=== PATIENT | male | born 1975 | race Caucasian/White ===

== ENCOUNTER 2024-05-26 02:36 | Inpatient (IN) | payer MEDICARE, OTHER ==
--- NOTE | 2024-05-26 02:40 | ED ---
General Adult HPI <Chanel Toro - Last Filed: 05/26/24 03:47> <Aissatou Hammer - Last Filed: 05/26/24 06:21> - General Stated complaint: Mental Health Time Seen by Provider: 05/26/24 02:40 - History of Present Illness Initial comments: Is a 48-year-old male with a history of alcohol abuse and alcoholic liver disease who presents to the emergency department today via ambulance for psychiatric evaluation and for treatment of self-inflicted laceration to the left forearm. Patient has multiple superficial lacerations to the left forearm made with a razor knife. Patient states that he did not have any alcohol tonight because he was feeling like ending his life he made multiple lacerations but was not successful and subsequently decided come to the hospital. Patient states he has known alcoholic liver disease he is currently not undergoing any treatment for this. (Aissatou Hammer) Review of Systems ROS Other: All systems not noted in ROS Statement are negative. <Chanel Toro - Last Filed: 05/26/24 03:47> ROS Other: All systems not noted in ROS Statement are negative. <Aissatou Hammer - Last Filed: 05/26/24 06:21> ROS Statement: Those systems with pertinent positive or pertinent negative responses have been documented in the HPI. General Exam <Aissatou Hammer - Last Filed: 05/26/24 06:21> - General Exam Comments Initial Comments: Physical Exam GENERAL: Obese, chronically ill appearing HENT: Normocephalic, Atraumatic. EYES: Scleral icterus equal round reactive to light, extraocular movements intact PULMONARY: Unlabored respirations. CARDIOVASCULAR: Tachycardic, regular warm and well perfused extremities ABDOMEN: Soft, distended palpable fluid wave SKIN: Jaundice 4 linear lacerations to the palmar surface of the left forearm, visible subcutaneous fat and underlying musculature but no obvious injuries to underlying vessels : Deferred NEUROLOGIC: Alert and oriented Normal speech MUSCULOSKELETAL: Moving all extremities PSYCHIATRIC: No SI/HI (Aissatou Hammer) Course Vital Signs 05/26/24 02:48 Temperature 97.8 F Pulse Rate 132 H Respiratory 20 Rate Blood Pressure 138/92 O2 Sat by Pulse 99 Oximetry Procedures - Laceration Laceration #1 Consent Obtained: verbal consent Indication: laceration Site: upper extremity Size (cm): 2 Description: linear Depth: simple, single layer Anesthetic Used: lidocaine 1%, without epi Anesthesia Technique: local infiltration Amount (mls): 1 Pre-repair: wound explored, irrigated extensively, deep structures intact Type of Sutures: nylon Size of Sutures: 4-0 Number of Sutures: 3 Technique: simple, interrupted Patient Tolerated Procedure: well Laceration #2 Consent Obtained: verbal consent Indication: laceration Site: upper extremity Size (cm): 3 Description: linear Depth: simple, single layer Anesthetic Used: lidocaine 1%, without epi Anesthesia Technique: local infiltration Amount (mls): 2 Pre-repair: wound explored, irrigated extensively, deep structures intact Type of Sutures: nylon Size of Sutures: 4-0 Number of Sutures: 3 Technique: simple, interrupted Patient Tolerated Procedure: well Laceration #3 Consent Obtained: verbal consent Indication: laceration Site: upper extremity Size (cm): 3 Description: linear Depth: simple, single layer Anesthetic Used: lidocaine 1%, without epi Anesthesia Technique: local infiltration Amount (mls): 3 Pre-repair: wound explored, irrigated extensively, deep structures intact Type of Sutures: nylon, vicryl Size of Sutures: 4-0 Number of Sutures: 3 Technique: simple, interrupted Patient Tolerated Procedure: well Laceration #4 Consent Obtained: verbal consent Indication: laceration Site: upper extremity Size (cm): 5 Description: linear Depth: simple, single layer Anesthetic Used: lidocaine 1%, without epi Anesthesia Technique: local infiltration Amount (mls): 2 Pre-repair: wound explored, irrigated extensively, deep structures intact Type of Sutures: nylon Size of Sutures: 4-0 Number of Sutures: 7 Technique: simple, interrupted Patient Tolerated Procedure: well <Chanel Toro - Last Filed: 05/26/24 03:47> Medical Decision Making - Lab Data Result diagrams: 05/26/24 04:07 05/26/24 04:07 <Aissatou Hammer - Last Filed: 05/26/24 06:21> - Medical Decision Making Was pt. sent in by a medical professional or institution (, PA, MEMBERSHIP MANAGER, urgent care, hospital, or [facility]...) When possible be specific @ -No Did you speak to anyone other than the patient for history (EMS, parent, family, police, friend...)? What history was obtained from this source @ -EMS Did you review nursing and triage notes (agree or disagree)? Why? @ -I reviewed and agree with nursing and triage notes Were old charts reviewed (outside hosp., previous admission, EMS record, old EKG, old radiological studies, urgent care reports/EKG's, [facility] records)? Report findings @ -No old charts available Differential Diagnosis (chest pain, altered mental status, abdominal pain women, abdominal pain men, vaginal bleeding, weakness, fever, dyspnea, syncope, heada aram, dizziness, GI bleed, back pain, seizure, CVA, palpatations, mental health)? @ -Differential Mental Health Depression, anxiety, bipolar, psychosis, schizophrenia, borderline personality, situational depression, adjustment disorder, behavioral disorder, brain tumor, malingering, substance abuse, encephalopathy, medication reaction, dementia, hypothyroidism, degenerative neurologic disorder, lupus.... This is not meant to be all-inclusive list EKG interpreted by me (3pts min.). @ -As above X-rays interpreted by me (1pt min.). @ -None done CT interpreted by me (1pt min.). @ -No free air or signs of obstruction U/S interpreted by me (1pt. min.). @ -None done What testing was considered but not performed or refused? (CT, X-rays, U/S, labs)? Why? @ -None What meds were considered but not given or refused? Why? @ -None Did you discuss the management of the patient with other professionals (professionals i.e. , PA, MEMBERSHIP MANAGER, lab, RT, psych nurse, social work supervisor, health technician, teacher, tourist information officer, case finisher)? Give summary @ -with admitting physician Was smoking cessation discussed for >3mins.? @ -No Was critical care preformed (if so, how long)? @ -No Were there social determinants of health that impacted care today? How? (Homelessness, low income, unemployed, alcoholism, drug addiction, transportation, low edu. Level, literacy, decrease access to med. care, fci, rehab)? @ -Homelessness, unemployed, alcoholism Was there de-escalation of care discussed even if they declined (Discuss DNR or withdrawal of care, Hospice)? DNR status @ -No What co-morbidities impacted this encounter? (DM, HTN, Smoking, COPD, CAD, Cancer, CVA, ARF, Chemo, Hep., AIDS, mental health diagnosis, sleep apnea, morbid obesity)? @ -Mental health diagnosis Was patient admitted / discharged? Hospital course, mention meds given and route, prescriptions, significant lab abnormalities, going to OR and other pertinent info. @ -Admit Patient was seen and evaluated upon arrival to the emergency department. Patient is obese jaundice admits to history of alcoholic liver disease. States that tonight he was visiting his mom became depressed and stated that he just wanted to end his life made multiple superficial lacerations to his left forearm. These were cleansed and repaired. Labs were obtained labs had multiple abnormalities including hyperbilirubinemia, transaminitis, hypokalemia MELD score is 3 The abdomen was obtained and there is no signs of pancreatic mass or obstructive jaundice. There is no biliary ductal dilatation. Diffuse fatty infiltration of the liver was noted. There is no ascites. Care was discussed with sound physician Dr. Tracey who accepts the patient for al cohol withdrawal, hypokalemia need for psychiatric evaluation once medically cleared. Undiagnosed new problem with uncertain prognosis? @ -No Drug Therapy requiring intensive monitoring for toxicity (Heparin, Nitro, Insulin, Cardizem)? @ -No Were any procedures done? @ -Laceration repair Diagnosis/symptom? @ -Alcoholic liver disease, hyperbilirubinemia, transaminitis, macrocytic anemia, suicide attempt, alcohol withdrawal Acute, or Chronic, or Acute on Chronic? @ -Default Uncomplicated (without systemic symptoms) or Complicated (systemic symptoms)? @ -Default Side effects of treatment? @ -No Exacerbation, Progression, or Severe Exacerbation? @ -No Poses a threat to life or bodily function? How? (Chest pain, [place], [place], pneumonia, PE, COPD, DKA, ARF, appy, cholecystitis, CVA, Diverticulitis, Homicidal, Suicidal, threat to staff... and all critical care pts) @ -Yes (Aissatou Hammer) - Lab Data Lab Results 05/26/24 05/26/24 05/26/24 Range/Units 04:07 04:07 04:07 WBC 10.2 (3.8-10.6) k/uL RBC 2.92 L (4.30-5.90) m/uL Hgb 11.3 L (13.0-17.5) gm/dL Hct 33.6 L (39.0-53.0) % MCV 114.9 H (80.0-100.0) fL MCH 38.6 H (25.0-35.0) pg MCHC 33.6 (31.0-37.0) g/dL RDW 16.2 H (11.5-15.5) % Plt Count 203 (150-450) k/uL MPV 9.4 Neutrophils % 76 % Lymphocytes % 19 % Monocytes % 3 % Eosinophils % 1 % Basophils % 1 % Neutrophils # 7.8 H (1.3-7.7) k/uL Lymphocytes # 1.9 (1.0-4.8) k/uL Monocytes # 0.3 (0-1.0) k/uL Eosinophils # 0.1 (0-0.7) k/uL Basophils # 0.1 (0-0.2) k/uL Manual Slide Review Performed Polychromasia Present Poikilocytosis (manual Present Anisocytosis Slight Macrocytosis Marked A Target Cells Present Stomatocytes Present PT 13.3 H (10.0-12.5) sec INR 1.3 H (<1.2) APTT 26.0 (22.0-30.0) sec Sodium 134 L (137-145) mmol/L Potassium 2.6 L* (3.5-5.1) mmol/L Chloride 92 L (98-107) mmol/L Carbon Dioxide 30 (22-30) mmol/L Anion Gap 12 mmol/L BUN 9 (9-20) mg/dL Creatinine 0.68 (0.66-1.25) mg/dL Est GFR (CKD-EPI)AfAm >90 (>60 ml/min/1.73 sqM) Est GFR (CKD-EPI)NonAf >90 (>60 ml/min/1.73 sqM) Glucose 215 H (74-99) mg/dL Calcium 7.9 L (8.4-10.2) mg/dL Total Bilirubin 11.2 H (0.2-1.3) mg/dL AST 248 H (17-59) U/L ALT 79 H (4-49) U/L Alkaline Phosphatase 238 H (38-126) U/L Total Protein 6.6 (6.3-8.2) g/dL Albumin 3.7 (3.5-5.0) g/dL Salicylates <1.0 mg/dL Acetaminophen <10.0 ug/mL Serum Alcohol <10 mg/dL Disposition <Chanel Toro - Last Filed: 05/26/24 03:47> Is patient prescribed a controlled substance at d/c from ED?: No <Aissatou Hammer - Last Filed: 05/26/24 06:21> Clinical Impression: Suicidal ideation, Attempted suicide, Alcoholic liver disease, Transaminitis, Hyperbilirubinemia, Hypokalemia, Alcohol withdrawal Disposition: ADMITTED IP TO THIS HOSP Condition: Serious Referrals: Darell Stiles MD [Primary Care Provider] - 1-2 days
[2024-05-26] MEDS: LORazepam 2 MG/ML INJ IV STA (03:21)
[2024-05-26] MEDS: LIDOCAINE 1% INJ 10MG/ML (20 ML MDV) SQ ONE (03:24)
[2024-05-26 04:14] LABS: Anisocytosis Slight; Basophils # (A) 0.1 k/uL (0-0.2); Basophils % (A) 1 %; Eosinophils # (A) 0.1 k/uL (0-0.7); Eosinophils % (A) 1 %; HCT 33.6 % (39.0-53.0); HGB 11.3 gm/dL (13.0-17.5); Lymphocytes # (A) 1.9 k/uL (1.0-4.8); Lymphocytes % (A) 19 %; MCH 38.6 pg (25.0-35.0); MCHC 33.6 g/dL (31.0-37.0); MCV 114.9 fL (80.0-100.0); Macrocytosis Marked; Mean Platelet Volume 9.4; Monocytes # (A) 0.3 k/uL (0-1.0); Monocytes % (A) 3 %; Neutrophils # (A) 7.8 k/uL (1.3-7.7); Neutrophils % (A) 76 %; Platelet Count 203 k/uL (150-450); RBC 2.92 m/uL (4.30-5.90); RDW 16.2 % (11.5-15.5); WBC 10.2 k/uL (3.8-10.6)
[2024-05-26 04:26] LABS: INR 1.3 (<1.2); Prothrombin Time 13.3 sec (10.0-12.5)
[2024-05-26 04:29] LABS: AST 248 U/L (17-59); Acetaminophen <10.0 ug/mL; African American GFR (CKD) >90 (>60 ml/min/1.73 sqM); Albumin 3.7 g/dL (3.5-5.0); Alcohol <10 mg/dL; Alkaline Phosphatase 238 U/L (38-126); Anion Gap 12 mmol/L; Blood Urea Nitrogen 9 mg/dL (9-20); Calcium 7.9 mg/dL (8.4-10.2); Carbon Dioxide 30 mmol/L (22-30); Chloride 92 mmol/L (98-107); Glucose 215 mg/dL (74-99); Non-African American GFR(CKD) >90 (>60 ml/min/1.73 sqM); Salicylate <1.0 mg/dL; Sodium 134 mmol/L (137-145); Total Bilirubin 11.2 mg/dL (0.2-1.3); Total Protein 6.6 g/dL (6.3-8.2)
[2024-05-26 04:37] LABS: Poikilocytosis (M) Present; Stomatocytes Present; Target Cells Present
[2024-05-26 04:38] LABS: Polychromasia Present
[2024-05-26 04:42] LABS: ALT 79 U/L (4-49); Potassium 2.6 mmol/L (3.5-5.1)
[2024-05-26] MEDS: POTASSIUM CHLORIDE ER 20 MEQ TAB.ER PO STA ×3 (05:45→21:11)
[2024-05-26] MEDS: POTASSIUM CHLORIDE 10 MEQ in WATER FOR INJECTION 1 100ML.BAG IVPB STA (05:45)
[2024-05-26] MEDS: THIAMINE 100 MG/ML 2 ML VIAL IM STA (06:01)
--- NOTE | 2024-05-26 06:10 | CT ---
EXAMINATION TYPE: CT abdomen pelvis w con DATE OF EXAM: 05/26/2024 COMPARISON: None. HISTORY: Elevated lab values for jaundice. ETOH. CT DLP: 1624.1 mGycm, Automated Exposure Control for Dose Reduction was Utilized. CONTRAST: CT scan of the abdomen and pelvis is performed without oral and with IV Contrast, patient injected wi th 100 mL of Isovue 300. FINDINGS: LUNG BASES: No significant abnormality is appreciated. LIVER/GB: Hepatomegaly with marked heterogeneous hypodense appearance of the liver. No biliary dilata tion. PANCREAS: No significant abnormality is seen. SPLEEN: No significant abnormality is seen. ADRENALS: No significant abnormality is seen. KIDNEYS: No significant abnormality is seen. BOWEL: No significant abnormality is seen. PROSTATE/SEMINAL VESICLES: Prostate gland upper limits of normal in size. LYMPH NODES: No greater than 1cm abdominal or pelvic lymph nodes are appreciated. OSSEOUS STRUCTURES: Mild narrowing and spurring in both hip joints. OTHER: Moderate calcified plaque of the infrarenal abdominal aorta extends into iliac branch vessels. Tiny fat-containing umbilical hernia. IMPRESSION: Hepatomegaly with marked diffuse fatty infiltration of liver. No biliary dilatation or as cites. [facility], , 05/26/2024 6:08 AM
[2024-05-26] MEDS ORDERED: NALOXONE 0.4 MG/ML 1 ML VIAL IV PRN (06:13)
[2024-05-26] MEDS: SODIUM CHLORIDE 0.9% 1,000 ML IV SCH (06:17)
[2024-05-26 07:32] LABS: Appearance,Urine Cloudy (Clear); Bilirubin,Urine 2+ (Negative); Blood,Urine Negative (Negative); Color,Urine Dark Brown; Glucose,Urine (UA) 1+ (Negative); Hyaline Casts,Urine 5 /lpf (0-2); Ketones,Urine Trace (Negative); Leukocyte Esterase,Urine Negative (Negative); Mucus,Urine Few /hpf; Nitrite,Urine Negative (Negative); PH, Urine 6.5 (5.0-8.0); Protein,Urine 1+ (Negative); RBC,Urine <1 /hpf (0-5); Specific Gravity,Urine 1.035 (1.001-1.035); Urobilinogen,Urine >12.0 mg/dL (<2.0); WBC,Urine 4 /hpf (0-5)
[2024-05-26 07:40] LABS: Amphetamine Screen,Urine Not Detected (NotDetected); Benzodiazepines Screen,Urine Detected (NotDetected); Cocaine Screen,Urine Not Detected (NotDetected); Methadone Screen, Urine Not Detected (NotDetected); Opiate Screen,Urine Not Detected (NotDetected); Phencyclidine Screen,Urine Not Detected (NotDetected); Tricyclic Antidepressant,Urine Not Detected (NotDetected); Urn Cannabinoid Scrn Not Detected (NotDetected)
[2024-05-26 07:41] LABS: Barbiturate Screen,Urine Detected (NotDetected); Oxycodone Screen, Urine Not Detected (NotDetected)
[2024-05-26] MEDS: LORazepam 2 MG/ML INJ IV PRN ×3 (08:00→13:29)
[2024-05-26] MEDS: FOLIC ACID 1 MG TAB PO SCH (09:34)
[2024-05-26] MEDS: MULTIVITAMINS, THERA 1 EACH TAB PO SCH (09:34)
[2024-05-26 12:35] LABS: African American GFR (CKD) >90 (>60 ml/min/1.73 sqM); Anion Gap 10 mmol/L; Blood Urea Nitrogen 9 mg/dL (9-20); Calcium 7.9 mg/dL (8.4-10.2); Carbon Dioxide 34 mmol/L (22-30); Chloride 91 mmol/L (98-107); Glucose 215 mg/dL (74-99); Non-African American GFR(CKD) >90 (>60 ml/min/1.73 sqM); Potassium 2.9 mmol/L (3.5-5.1); Sodium 135 mmol/L (137-145)
--- NOTE | 2024-05-26 14:33 | P.HPIM ---
History of Present Illness H&P Date: 05/26/24 History of Presenting Illness: Patient is a 48-year-old male with a past medical history of alcoholism, alcoholic cirrhosis, hypertension, and nicotine dependence. He presented to the emergency department via EMS for psychiatric evaluation and treatment of self- inflicted lacerations to left forearm. Upon arrival to our facility, patient was found to have 4 self-inflicted lacerations to left forearm and wrist. He underwent evaluation in the emergency department and repair of these lacerations via a total of 16 sutures. Vital signs upon arrival show blood pressure 138/92, heart rate 132, respiratory rate 20, temp 97.8 F, and SpO2 of 99% on room air. Labs completed and reviewed. CBC showing macrocytic anemia with hemoglobin of 11.3 and MCV of 114.9. Coagulation profile showing elevated PT of 13.3 and INR of 1.3. BMP showing sodium of 134, potassium of 2.6, chloride of 92, bicarb of 30, and anion gap elevated at 12. Blood glucose 215. Liver profile showing total bili of 11.2, AST of 248, ALT of 79, and alkaline phosphatase of 238. Uri nalysis positive for protein, glucose, ketones, and bilirubin. Salicylates less than 1. Acetaminophen less than 10. Serum alcohol level less than 10. Urine drug screen positive for barbiturates and benzodiazepines. CT abdomen and pelvis was completed showing hepatomegaly with marked diffuse fatty infiltration of liver, no biliary dilation or ascites. Also revealing moderate calcified plaque of the infrarenal abdominal aorta extending into iliac branch vessels and a tiny fat-containing umbilical hernia. Patient was admitted under our services with consultation to psychiatry. Upon assessment at bedside, patient laying on his side was agreeable to examination and assessment but very brief with answers stating he is tired. Patient denies having headache, lightheadedness, dizziness, chest pain, palpitations, shortness of breath, or any other complaints at this time. Review of systems: Pertinent positives and negatives as discussed in HPI, a complete review of systems was performed and all other systems are negative. Physical exam: Vital signs reviewed and stable. General: Nontoxic, no distress and appears stated age. Derm: Skin warm and dry, normal coloration for ethnicity.. Lacerations to left wrist, sutures in place (total of 16 sutures) Head: Atraumatic, normocephalic and symmetric. Eyes: EOM's intact, no lid lag, and anicteric sclera Mouth: no lip lesions, mucus membranes moist Cardiovascular: regular rate and rhythm with normal S1S2, no murmur, positive posterior tibial pulses bilaterally, and cap refill < 2 seconds. Lungs: Respirations even, regular, and unlabored on room air. Lungs CTA bilaterally, no rhonchi, no rales, no wheezing, and no accessory muscle usage. Abdominal: Obese abdomen, nontender to palpation, no guarding, hepatomegaly Ext: ROM intact. No gross muscle atrophy, no edema, no contractures Neuro: Speech clear, face symmetrical and CN II-XII grossly intact with no noted focal neuro deficits Psych: Alert and oriented to person, place, time, and situation. Appropriate and pleasant affect. Assessment and Plan of Care: Alcohol withdraw in active alcoholic Alcoholic cirrhosis Severe hypokalemia and hypomagnesemia Hypochloremic hyponatremia High anion gap metabolic alkalosis -Order placed for monitoring of CIWA scores and patient to be medicated with Ativan 0.5 mg every 4 hours as needed for CIWA score of 4-5, Ativan 1 mg every 4 hours for CIWA score of 6-7, Ativan 2 mg every 3 hours CIWA score of 8-9, and Ativan 2 mg every 2 hours forr CIWA score of 10 or greater. -Continuous IV hydration with 0.9% normal saline at 130 cc/h. -Thiamine 100 mg daily, and Multivitamin daily, and Folate 1 mg daily -Seizure, fall, aspiration, and elopement precautions in place. -Urine drug screen positive for barbiturates and benzodiazepines -Continued close monitoring of electrolytes and replace as needed. -Telemetry monitoring. -MELD score is 21 points showing a 19.6% estimated 3-month mortality. Suicidal ideations with self injury multiple lacerations to Left arm/wrist requiring repair with sutures in the emergency department -Suicide precautions in place one-to-one sitter at all times. -Consult to psychiatry. -Continue wound care/dressing changes to the lacerations on left wrist. Data and imaging reviewed: -As stated above in HPI The patient is admitted with an anticipated greater than 2 midnight stay for evaluation of alcohol withdrawal and suicidal ideations CODE STATUS: Full code DVT prophylaxis: SCDs Anticipated discharge date: Pending clinical course Anticipated discharge place: Likely inpatient psychiatric unit Patient was seen independently by Nurse Practitioner. This document was prepared using Flypaper dictation software. Please allow for errors in molder inflated ball while rare they do occur. Davie Galvez NP rendered care for this patient independently, reviewed the findings and plan as documented in the note above and agree with plan. I did not physically speak with or examine the patient on this date. Past Medical History Past Medical History: Hypertension History of Any Multi-Drug Resistant Organisms: None Reported Past Surgical History: No Surgical Hx Reported Past Psychological History: No Psychological Hx Reported Smoking Status: Current every day smoker Past Alcohol Use History: Daily, Heavy Past Drug Use History: None Reported - Past Family History Father Family Medical History: Myocardial Infarction ([place]) Additional Family Medical History / Comment(s): at 58 from [place] Mother Additional Family Medical History / Comment(s): hip replacement/ problems walking. Brother(s) Additional Family Medical History / Comment(s): 2x back surgeries Medications and Allergies Home Medications Medication Instructions Recorded Confirmed Type amLODIPine [Norvasc] 5 mg PO DAILY 05/26/24 05/26/24 History Allergies Allergy/AdvReac Type Severity Reaction Status Date / Time No Known Allergies Allergy Verified 05/26/24 13:25 Physical Exam Vitals: Vital Signs Temp Pulse Resp BP Pulse Ox 05/26/24 08:15 123 H 17 05/26/24 07:38 124 H 18 102/70 96 05/26/24 06:53 116 H 20 111/73 96 05/26/24 02:48 97.8 F 132 H 20 138/92 99 Intake and Output 05/25/24 05/26/24 05/26/24 22:59 06:59 14:59 Other: Weight 108.862 kg Results CBC & Chem 7: 05/26/24 04:07 05/26/24 19:26 Labs: Abnormal Lab Results - Last 24 Hours (Table) 05/26/24 05/26/24 05/26/24 Range/Units 04:07 04:07 04:07 RBC 2.92 L (4.30-5.90) m/uL Hgb 11.3 L (13.0-17.5) gm/dL Hct 33.6 L (39.0-53.0) % MCV 114.9 H (80.0-100.0) fL MCH 38.6 H (25.0-35.0) pg RDW 16.2 H (11.5-15.5) % Neutrophils # 7.8 H (1.3-7.7) k/uL Macrocytosis Marked A PT 13.3 H (10.0-12.5) sec INR 1.3 H (<1.2) Sodium 134 L (137-145) mmol/L Potassium 2.6 L* (3.5-5.1) mmol/L Chloride 92 L (98-107) mmol/L Glucose 215 H (74-99) mg/dL Calcium 7.9 L (8.4-10.2) mg/dL Total Bilirubin 11.2 H (0.2-1.3) mg/dL AST 248 H (17-59) U/L ALT 79 H (4-49) U/L Alkaline Phosphatase 238 H (38-126) U/L Urine Protein (Negative) Urine Glucose (UA) (Negative) Urine Ketones (Negative) Urine Bilirubin (Negative) Hyaline Casts (0-2) /lpf Urine Mucus (None) /hpf Ur Barbiturates Screen (NotDetected) U Benzodiazepines Scrn (NotDetected) 05/26/24 Range/Units 07:02 RBC (4.30-5.90) m/uL Hgb (13.0-17.5) gm/dL Hct (39.0-53.0) % MCV (80.0-100.0) fL MCH (25.0-35.0) pg RDW (11.5-15.5) % Neutrophils # (1.3-7.7) k/uL Macrocytosis PT (10.0-12.5) sec INR (<1.2) Sodium (137-145) mmol/L Potassium (3.5-5.1) mmol/L Chloride (98-107) mmol/L Glucose (74-99) mg/dL Calcium (8.4-10.2) mg/dL Total Bilirubin (0.2-1.3) mg/dL AST (17-59) U/L ALT (4-49) U/L Alkaline Phosphatase (38-126) U/L Urine Protein 1+ H (Negative) Urine Glucose (UA) 1+ H (Negative) Urine Ketones Trace H (Negative) Urine Bilirubin 2+ H (Negative) Hyaline Casts 5 H (0-2) /lpf Urine Mucus Few H (None) /hpf Ur Barbiturates Screen Detected H (NotDetected) U Benzodiazepines Scrn Detected H (NotDetected)
[2024-05-26] MEDS: MAGNESIUM SULFATE-D5W PMX 1 GM in DEXTROSE/WATER 1 100ML.BAG IVPB SCH (15:02)
[2024-05-26] MEDS: POTASSIUM CHLORIDE ER 20 MEQ TAB.ER PO SCH (15:02)
[2024-05-26] MEDS ORDERED: DEXTROSE 50% SYRINGE 50 ML IVP PRN ×2 (16:01)
[2024-05-26] MEDS: amLODIPine 5 MG TAB PO SCH (16:08)
[2024-05-26] MEDS: NICOTINE 21MG/24HR PATCH TRANSDERM SCH (16:14)
[2024-05-26 17:46] LABS: Glucose,Whole Blood 288 mg/dL (70-110)
[2024-05-26] MEDS: INSULIN ASPART (NovoLOG) 100 UNIT/ML VIAL SQ SCH (17:50)
[2024-05-26] MEDS: DIPH,PERTUS(ACELL)TETVAC-LF 0.5 ML VIAL IM ONE (18:36)
[2024-05-26 19:58] LABS: African American GFR (CKD) >90 (>60 ml/min/1.73 sqM); Anion Gap 3 mmol/L; Blood Urea Nitrogen 11 mg/dL (9-20); Calcium 7.8 mg/dL (8.4-10.2); Carbon Dioxide 35 mmol/L (22-30); Chloride 98 mmol/L (98-107); Glucose 113 mg/dL (74-99); Magnesium 2.3 mg/dL (1.6-2.3); Non-African American GFR(CKD) >90 (>60 ml/min/1.73 sqM); Potassium 3.3 mmol/L (3.5-5.1); Sodium 136 mmol/L (137-145)
[2024-05-26] MEDS: TRIMETHOBENZAMIDE 100 MG/ML 2 ML VIAL IM STA (23:22)
[2024-05-27 07:49] LABS: Glucose,Whole Blood 182 mg/dL (70-110)
[2024-05-27] MEDS: FOLIC ACID 1 MG TAB PO SCH (08:49)
[2024-05-27] MEDS: MULTIVITAMINS, THERA 1 EACH TAB PO SCH (08:49)
[2024-05-27] MEDS: THIAMINE 100 MG TAB PO SCH (08:49)
[2024-05-27 09:04] LABS: HCT 25.1 % (39.6-50.0); HGB 8.6 g/dL (13.0-17.0); MCH 38.6 pg (27.0-32.0); MCHC 34.3 g/dL (32.0-37.0); MCV 112.6 FL (80.0-97.0); Mean Platelet Volume 12.5 FL (9.5-12.2); NRBC Per 100 WBC 0.03 X 10*3/uL (0.00-0.01); Platelet Count 174 X 10*3/uL (140-440); RBC 2.23 X 10*6/uL (4.40-5.60); RDW 16.6 % (11.5-14.5); WBC 8.57 X 10*3/uL (4.50-10.00)
[2024-05-27 09:16] LABS: Magnesium 1.6 mg/dL (1.5-2.4)
[2024-05-27 09:45] LABS: ALT 54 U/L (10-49); AST 162 U/L (14-35); Albumin 3.1 g/dL (3.8-4.9); Albumin/Globulin Ratio 1.55 Ratio (1.60-3.17); Alkaline Phosphatase 198 U/L (41-126); BUN/Creat Ratio 10.62 Ratio (12.00-20.00); Blood Urea Nitrogen 8.5 mg/dL (9.0-27.0); Calcium 7.4 mg/dL (8.7-10.3); Carbon Dioxide 26.8 mmol/L (21.6-31.8); Chloride 96 mmol/L (96-109); Glucose 193 mg/dL (70-110); Potassium 3.3 mmol/L (3.5-5.5); Sodium 136 mmol/L (135-145); Total Bilirubin 10.3 mg/dL (0.3-1.2); Total Protein 5.1 g/dL (6.2-8.2)
--- NOTE | 2024-05-27 11:21 | P.PN ---
Subjective Progress Note Date: 05/27/24 Hospital Course:: Patient is a 48-year-old male with a past medical history of alcoholism, alcoholic cirrhosis, hypertension, and nicotine dependence. He presented to the emergency department via EMS for psychiatric evaluation and treatment of self- inflicted lacerations to left forearm. Upon arrival to our facility, patient was found to have 4 self-inflicted lacerations to left forearm and wrist. He underwent evaluation in the emergency department and repair of these lacerations via a total of 16 sutures. Vital signs upon arrival show blood pressure 138/92, heart rate 132, respiratory rate 20, temp 97.8 F, and SpO2 of 99% on room air. Labs completed and reviewed. CBC showing macrocytic anemia with hemoglobin of 11.3 and MCV of 114.9. Coagulation profile showing elevated PT of 13.3 and INR of 1.3. BMP showing sodium of 134, potassium of 2.6, chloride of 92, bicarb of 30, and anion gap elevated at 12. Blood glucose 215. Liver profile showing total bili of 11.2, AST of 248, ALT of 79, and alkaline phosphatase of 238. Urinalysis positive for protein, glucose, ketones, and bilirubin. Salicylates less than 1. Acetaminophen less than 10. Serum alcohol level less than 10. Urine drug screen positive for barbiturates and benzodiazepines. CT abdomen and pelvis was completed showing hepatomegaly with marked diffuse fatty infiltration of liver, no biliary dilation or ascites. Also revealing moderate calcified plaque of the infrarenal abdominal aorta extending into iliac branch vessels and a tiny fat-containing umbilical hernia. Patient was admitted under our services with consultation to psychiatry. Physical exam: Patient seen and fully evaluated at the bedside this morning. He is confused and agitated. RN reports CIWA 16. Patient medicated with Ativan. He has been given a total of 15 mg of Ativan over the past 24 hours and still scoring high on CIWA. Orders placed for transfer to [facility]. Vital signs reviewed and stable. General: Nontoxic, no distress and appears stated age. Derm: Skin warm and dry, normal coloration for ethnicity.. Lacerations to left wrist, sutures in place (total of 16 sutures) Head: Atraumatic, normocephalic and symmetric. Eyes: EOM's intact, no lid lag, and anicteric sclera Mouth: no lip lesions, mucus membranes moist Cardiovascular: regular rate and rhythm with normal S1S2, no murmur, positive posterior tibial pulses bilaterally, and cap refill < 2 seconds. Lungs: Respirations even, regular, and unlabored on room air. Lungs CTA bilaterally, no rhonchi, no rales, no wheezing, and no accessory muscle usage. Abdominal: Obese abdomen, nontender to palpation, no guarding, hepatomegaly Ext: ROM intact. No gross muscle atrophy, no edema, no contractures Neuro/Psych: Patient confused and agitated this morning, tremors present, suspect hallucinations. Patient verbally abusive towards sitter and has threatened to kick her if she does not get out of his way. Assessment and Plan of Care: Patient with a past medical history of daily alcohol abuse drinking 1-2 fifths of liquor daily, alcoholic cirrhosis, and hypertension. He is currently admitted and undergoing medical detox. Upon presentation he also had suicidal ideations with for self-inflicted lacerations to his left forearm and wrist requiring repair with sutures. Patient has received a total of 15 mg of Ativan over the past 24 hours and still scoring high on CIWA protocol. He remains confused and agitated. Order placed for transfer to 3 S. stepdown unit and we will obtain a stat ammonia level to ensure ammonia is not elevated as well co ntributing to patient's confusion. Alcohol withdraw in active alcoholic Alcoholic cirrhosis Severe hypokalemia and hypomagnesemia Hypochloremic hyponatremia High anion gap metabolic alkalosis -Continue monitoring of CIWA scores and patient to be medicated with Ativan 0.5 mg every 4 hours as needed for CIWA score of 4-5, Ativan 1 mg every 4 hours for CIWA score of 6-7, Ativan 2 mg every 3 hours CIWA score of 8-9, and Ativan 2 mg every 2 hours forr CIWA score of 10 or greater. -Continuous IV hydration with 0.9% normal saline at 130 cc/h. -Thiamine 100 mg daily, and Multivitamin daily, and Folate 1 mg daily -Seizure, fall, aspiration, and elopement precautions in place. -Urine drug screen positive for barbiturates and benzodiazepines -Continued close monitoring of electrolytes and replace as needed. -Telemetry monitoring. -MELD score is 21 points showing a 19.6% estimated 3-month mortality. Suicidal ideations with self injury multiple lacerations to Left arm/wrist requiring repair with sutures in the emergency department -Suicide precautions in place one-to-one sitter at all times. -Psychiatry consulted, awaiting evaluation and recommendations. -Continue wound care/dressing changes to the lacerations on left wrist. Hyperglycemia, newly diagnosed diabetes mellitus type 2 with hemoglobin A1c of 8.5%. -Patient will require oral hypoglycemic agents on discharge. At this time we will continue with glycemic protocol and NovoLog sliding scale. Data and imaging reviewed: -Morning labs reviewed. CBC showing stable macrocytic anemia with hemoglobin of 8.6 and MCV of 112.6. BMP showing hypokalemia with potassium of 3.3 and high anion gap of 13.20. Blood glucose was 193. Hemoglobin A1c 8.5%. Magnesium 1.6. Liver profile showing elevated total bili of 10.3, AST of 162, ALT of 54, and alkaline phosphatase of 198. -Vital signs reviewed. Blood pressure 129/83, heart rate 120, respiratory rate 22, temp 98.3 F, and SpO2 of 94% on room air. CODE STATUS: Full code DVT prophylaxis: SCDs Anticipated discharge date: Pending clinical course Anticipated discharge place: Likely inpatient psychiatric unit Patient was seen independently by Nurse Practitioner. This document was prepared using [employer] dictation software. Please allow for errors in guard range while rare they do occur. Davie Galvez NP rendered care for this patient independently, reviewed the findings and plan as documented in the note above and agree with plan. I did not physically speak with or examine the patient on this date. Objective - Vital Signs Vital signs: Vital Signs Temp 98.8 F 05/27/24 01:00 Pulse 122 H 05/27/24 01:00 Resp 16 05/27/24 01:00 BP 132/82 05/27/24 01:00 Pulse Ox 93 L 05/27/24 01:00 FiO2 Intake & Output 05/26/24 05/27/24 05/27/24 18:59 06:59 18:59 Intake Total 540 Balance 540 Weight 108.862 kg Intake: Oral 540 Other: Voiding Method External Catheter External Catheter # Voids 1 2 # Bowel Movements 1 - Labs CBC & Chem 7: 05/27/24 04:14 05/27/24 04:14 Labs: Abnormal Lab Results - Last 24 Hours (Table) 05/26/24 05/26/24 05/26/24 Range/Units 11:37 17:28 19:26 Sodium 135 L 136 L (137-145) mmol/L Potassium 2.9 L 3.3 L (3.5-5.1) mmol/L Chloride 91 L (98-107) mmol/L Carbon Dioxide 34 H 35 H (22-30) mmol/L Glucose 215 H 113 H (74-99) mg/dL POC Glucose (mg/dL) 288 H (70-110) mg/dL Calcium 7.9 L 7.8 L (8.4-10.2) mg/dL Magnesium 1.0 L (1.6-2.3) mg/dL 05/27/24 Range/Units 07:48 Sodium (137-145) mmol/L Potassium (3.5-5.1) mmol/L Chloride (98-107) mmol/L Carbon Dioxide (22-30) mmol/L Glucose (74-99) mg/dL POC Glucose (mg/dL) 182 H (70-110) mg/dL Calcium (8.4-10.2) mg/dL Magnesium (1.6-2.3) mg/dL
[2024-05-27] MEDS: POTASSIUM CHLORIDE ER 20 MEQ TAB.ER PO STA (11:50)
[2024-05-27] MEDS: MAGNESIUM SULFATE-D5W PMX 1 GM in DEXTROSE/WATER 1 100ML.BAG IVPB SCH (11:50)
[2024-05-27 12:14] LABS: Glucose,Whole Blood 189 mg/dL (70-110)
[2024-05-27] MEDS: LORazepam 2 MG/ML INJ IV PRN (13:08)
--- NOTE | 2024-05-27 13:51 | P.CN ---
Psychiatric Consult - . Consult date: 05/27/24 Consult:: 05/27/24 13:16 IDENTIFYING DATA: This patient is a 48-year-old single male, living alone and laid off from work REASON FOR REFERRAL: Psychiatry was consulted for suicidal ideations HISTORY OF PRESENT ILLNESS: The patient presented to the hospital with self- inflicted lacerations on his arm. Patient has a history of alcohol use however alcohol was negative in the ED. Imaging of the abdomen revealed hepatomegaly with marked diffuse fatty liver infiltration of the liver. Patient reportedly was drinking 1-2 1/5s of hard liquor per day. LFTs revealed AST of 162 and ALT of 54, alk phos 198. EKG revealed prolonged QTc at 631. Patient was placed on CIWA protocol given his withdrawal symptoms. Patient seen and evaluated in his room with sitter at bedside. He states not doing well. He reports cutting his arm as a suicide attempt given multiple stressors. Patient was pretty guarded and vague with his responses however he was able to pinpoint being a failure to his kids as the biggest stressor and his alcohol use a close second. Staff has noted that patient recently lost his son back in December. He reports drinking up to 2 1/5 of hard liquor per day and is interested in rehab. He reports cravings for alcohol and CIWA's have been elevated. Patient reports suicidal ideations with a plan to use a knife. At this time patient denies any homical ideations, intent or plan. Patient denies any auditory, visual hallucinations and denies any paranoia or delusions. Patients admits to using alcohol, cannabis and nicotine PAST PSYCHIATRIC HISTORY: Patient has a a history of depression and anxiety. Patient denies being on any psychiatric medications. Patient denies any previous psychiatric hospitalizations. Patient denies any psychiatric outpatient follow-up. Patient denies any history of suicide attempts in the [facility]. PAST MEDICAL HISTORY: Alcoholic liver disease. ALLERGIES: as per EMR. CHEMICAL DEPENDENCY HISTORY: as per HPI. FAMILY PSYCHIATRIC/SUBSTANCE USE HISTORY: Patient reports severe mental illness on both sides of the family and that his brother used to abuse cocaine SOCIAL HISTORY: Patient states living alone however he has 3 kids. He is single and laid off from work. He completed 12th grade. He reports previously going to rehab with a good experience MENTAL STATUS EXAM: General Appearance: Patient appears to be stated age is alert, and cooperative. Patient appears to have poor hygiene and grooming wearing hospital gown with downcast eye contact. Behavior: Patient is calmly lying in bed without any agitated behavior. Speech: Patient's speech is fluent and nonpressured. Mood/Affect: Patient reports their mood is "depressed", affect is congruent Suicidality/Homicidality: Patient reports suicidal thoughts with a plan however denies any homicidal ideations Perceptions: Patient denies any visual hallucinations and denies any auditory hallucinations Though content/process: There is no evidence of any delusional thought content and thought process is linear. Memory and concentration: AOX2, not date Judgment and insight: Poor IMPRESSIONS: Suicide attempt via cutting Alcohol use disorder, severe in withdrawal Depression, unspecified Cannabis use disorder Nicotine dependence PLAN: -At this time patient DOES meet criteria for inpatient psychiatric admission. -Would recommend the following medication changes/additions: Hold off from starting any psychotropic medications until medically cleared -CIWA protocol with PRN Ativan for alcohol withdrawal. Continue to monitor vital signs. -Continue 1:1 sitter for safety -Cannot leave AMA at this time. Patient will need a petition and certification if attempting to leave AMA. -When medically stable, patient is eligible for transfer to a psych bed when available. -Communicated plan to patient's nurse -Psychiatry will sign off at this time -Please contact with any questions.
[2024-05-27 16:24] LABS: Glucose,Whole Blood 163 mg/dL (70-110)
[2024-05-27] MEDS: HALOPERIDOL LACTATE 5 MG/ML 1 ML VIAL IM STA (17:26)
[2024-05-27] MEDS: LORazepam 2 MG/ML INJ IV STA (17:26)
[2024-05-27] MEDS: diphenhydrAMINE 50 MG/ML 1 ML VIAL IVP STA (17:26)
[2024-05-27] MEDS: chlordiazePOXIDE 25 MG CAP PO STA (17:39)
[2024-05-27] MEDS: LACTULOSE 20 GM/30 ML CUP PO SCH (19:40)
[2024-05-27 20:20] LABS: Glucose,Whole Blood 149 mg/dL (70-110)
[2024-05-27] MEDS: chlordiazePOXIDE 25 MG CAP PO SCH (23:36)
[2024-05-28 05:59] LABS: Glucose,Whole Blood 114 mg/dL (70-110)
[2024-05-28 08:40] LABS: Anisocytosis Slight; Basophils # (A) 0.1 k/uL (0-0.2); Basophils % (A) 1 %; Eosinophils # (A) 0.1 k/uL (0-0.7); Eosinophils % (A) 1 %; HCT 28.7 % (39.0-53.0); Lymphocytes # (A) 2.2 k/uL (1.0-4.8); Lymphocytes % (A) 26 %; MCH 40.3 pg (25.0-35.0); MCHC 33.6 g/dL (31.0-37.0); Macrocytosis Marked; Mean Platelet Volume 8.9; Monocytes # (A) 0.4 k/uL (0-1.0); Monocytes % (A) 4 %; Neutrophils # (A) 5.6 k/uL (1.3-7.7); Neutrophils % (A) 66 %; Platelet Count 201 k/uL (150-450); RDW 17.4 % (11.5-15.5); WBC 8.5 k/uL (3.8-10.6)
[2024-05-28 08:41] LABS: HGB 9.7 gm/dL (13.0-17.5)
[2024-05-28 08:42] LABS: MCV 119.9 fL (80.0-100.0)
[2024-05-28 08:49] LABS: African American GFR (CKD) >90 (>60 ml/min/1.73 sqM); Anion Gap 6 mmol/L; Blood Urea Nitrogen 4 mg/dL (9-20); Calcium 7.3 mg/dL (8.4-10.2); Carbon Dioxide 31 mmol/L (22-30); Chloride 99 mmol/L (98-107); Glucose 101 mg/dL (74-99); Non-African American GFR(CKD) >90 (>60 ml/min/1.73 sqM); Potassium 3.1 mmol/L (3.5-5.1); Sodium 136 mmol/L (137-145)
[2024-05-28] MEDS ORDERED: MAGNESIUM SULFATE-D5W PMX 2 GM in DEXTROSE/WATER 1 100ML.BAG IVPB SCH (09:00)
[2024-05-28] MEDS: MAGNESIUM SULFATE-D5W PMX 1 GM in DEXTROSE/WATER 1 100ML.BAG IVPB SCH (09:48)
[2024-05-28 11:26] LABS: Glucose,Whole Blood 121 mg/dL (70-110)
--- NOTE | 2024-05-28 14:25 | P.PN ---
Subjective Progress Note Date: 05/28/24 [facility] [address], [place] [address] Progress Note - SOAP Patient Name: Lalo Webb Date of : 75 Patient Status: Inpatient Attending Provider: BIRGIT LEPE Date: 05/27/24 10:58 Initialization Date: 05/27/24 07:58 Subjective Progress Note Date: 05/28/24 Hospital Course:: Patient is a 48-year-old male with a past medical history of alcoholism, alcoholic cirrhosis, hypertension, and nicotine dependence. He presented to the emergency department via EMS for psychiatric evaluation and treatment of self- inflicted lacerations to left forearm. Upon arrival to our facility, patient was found to have 4 self-inflicted lacerations to left forearm and wrist. He underwent evaluation in the emergency department and repair of these lacerations via a total of 16 sutures. Vital signs upon arrival show blood pressure 138/92, heart rate 132, respiratory rate 20, temp 97.8 F, and SpO2 of 99% on room air. Labs completed and reviewed. CBC showing macrocytic anemia with hemoglobin of 11.3 and MCV of 114.9. Coagulation profile showing elevated PT of 13.3 and INR of 1.3. BMP showing sodium of 134, potassium of 2.6, chloride of 92, bicarb of 30, and anion gap elevated at 12. Blood glucose 215. Liver profile showing total bili of 11.2, AST of 248, ALT of 79, and alkaline phosphatase of 238. Urinalysis positive for protein, glucose, ketones, and bilirubin. Salicylates less than 1. Acetaminophen less than 10. Serum alcohol level less than 10. Urine drug screen positive for barbiturates and benzodiazepines. CT abdomen and pelvis was completed showing hepatomegaly with marked diffuse fatty infiltration of liver, no biliary dilation or ascites. Also revealing moderate calcified plaque of the infrarenal abdominal aorta extending into iliac branch vessels and a tiny fat-containing umbilical hernia. Patient was admitted under our services with consultation to psychiatry. Subjective: 05/28 Patient seen and fully evaluated at the bedside this morning. Patient was resting comfortably, sleeping There is a sitter at bedside, sitter states that he is 7 AM, patient has been sleeping okay since coming to complaints at this time Physical exam: Vital signs reviewed and stable. General: Nontoxic, no distress and appears stated age. Derm: Skin warm and dry, normal coloration for ethnicity.. Lacerations to left wrist, sutures in place (total of 16 sutures) Head: Atraumatic, normocephalic and symmetric. Eyes: EOM's intact, no lid lag, and anicteric sclera Mouth: no lip lesions, mucus membranes moist Cardiovascular: regular rate and rhythm with normal S1S2, no murmur, positive posterior tibial pulses bilaterally, and cap refill < 2 seconds. Lungs: Respirations even, regular, and unlabored on room air. Lungs CTA bilaterally, no rhonchi, no rales, no wheezing, and no accessory muscle usage. Abdominal: Obese abdomen, nontender to palpation, no guarding, hepatomegaly Ext: ROM intact. No gross muscle atrophy, no edema, no contractures Neuro/Psych: Stable with no outbursts, sleepy Assessment and Plan of Care: Alcohol withdraw in active alcoholic Alcoholic cirrhosis Severe hypokalemia and hypomagnesemia Hypochloremic hyponatremia High anion gap metabolic alkalosis -Continue monitoring of CIWA scores and patient to be medicated with Ativan 0.5 mg every 4 hours as needed for CIWA score of 4-5, Ativan 1 mg every 4 hours for CIWA score of 6-7, Ativan 2 mg every 3 hours CIWA score of 8-9, and Ativan 2 mg every 2 hours forr CIWA score of 10 or greater. -Continuous IV hydration with 0.9% normal saline at 130 cc/h. -Thiamine 100 mg daily, and Multivitamin daily, and Folate 1 mg daily -Seizure, fall, aspiration, and elopement precautions in place. -Urine drug screen positive for barbiturates and benzodiazepines -Continued close monitoring of electrolytes and replace as needed. -Telemetry monitoring. -MELD score is 21 points showing a 19.6% estimated 3-month mortality -Should patient not be able to be controlled with Ativan, may benefit from Precedex drip, continue to monitor for now Suicidal ideations with self injury multiple lacerations to Left arm/wrist requiring repair with sutures in the emergency department -Suicide precautions in place one-to-one sitter at all times. -Psychiatry consulted, awaiting evaluation and recommendations. -Continue wound care/dressing changes to the lacerations on left wrist. Hyperglycemia, newly diagnosed diabetes mellitus type 2 with hemoglobin A1c of 8.5%. -Patient will require oral hypoglycemic agents on discharge. At this time we will continue with glycemic protocol and NovoLog sliding scale. QTc prolongation QTC > 600 2 g mag sulfate IV x 1 dose ordered Repeat EKG Reviewed medication, discontinue all QTc prolonging medications Maintain patient on cardiac telemetry CODE STATUS: Full code DVT prophylaxis: SCDs Objective - Vital Signs Vital signs: Vital Signs Temp 97.8 F 05/27/24 12:11 Pulse 90 05/28/24 08:00 Resp 20 05/28/24 08:00 BP 123/76 05/28/24 08:00 Pulse Ox 92 L 05/28/24 08:00 FiO2 Intake & Output 05/27/24 05/28/24 05/28/24 18:59 06:59 18:59 Intake Total 118 Output Total 300 Balance -182 Intake: Oral 118 Output: Urine 300 Other: Voiding Method Urinal Diaper Diaper Diaper Incontinent Incontinent # Voids 1 1 1 # Bowel Movements 1 1 - Labs CBC & Chem 7: 05/28/24 08:14 05/28/24 08:14 Labs: Abnormal Lab Results - Last 24 Hours (Table) 05/27/24 05/27/24 05/28/24 Range/Units 16:16 20:18 05:57 RBC (4.30-5.90) m/uL Hgb (13.0-17.5) gm/dL Hct (39.0-53.0) % MCV (80.0-100.0) fL MCH (25.0-35.0) pg RDW (11.5-15.5) % Macrocytosis Sodium (137-145) mmol/L Potassium (3.5-5.1) mmol/L Carbon Dioxide (22-30) mmol/L BUN (9-20) mg/dL Creatinine (0.66-1.25) mg/dL Glucose (74-99) mg/dL POC Glucose (mg/dL) 163 H 149 H 114 H (70-110) mg/dL Calcium (8.4-10.2) mg/dL 05/28/24 05/28/24 05/28/24 Range/Units 08:14 08:14 11:24 RBC 2.40 L (4.30-5.90) m/uL Hgb 9.7 L D (13.0-17.5) gm/dL Hct 28.7 L (39.0-53.0) % MCV 119.9 H D (80.0-100.0) fL MCH 40.3 H (25.0-35.0) pg RDW 17.4 H (11.5-15.5) % Macrocytosis Marked A Sodium 136 L (137-145) mmol/L Potassium 3.1 L (3.5-5.1) mmol/L Carbon Dioxide 31 H (22-30) mmol/L BUN 4 L (9-20) mg/dL Creatinine 0.58 L (0.66-1.25) mg/dL Glucose 101 H (74-99) mg/dL POC Glucose (mg/dL) 121 H (70-110) mg/dL Calcium 7.3 L (8.4-10.2) mg/dL
[2024-05-28 16:43] LABS: Glucose,Whole Blood 171 mg/dL (70-110)
[2024-05-28 19:56] LABS: Glucose,Whole Blood 222 mg/dL (70-110)
[2024-05-29 05:58] LABS: Glucose,Whole Blood 149 mg/dL (70-110)
[2024-05-29 09:32] LABS: Anisocytosis Slight; Basophils # (A) 0.1 k/uL (0-0.2); Basophils % (A) 1 %; Eosinophils # (A) 0.2 k/uL (0-0.7); Eosinophils % (A) 2 %; HCT 28.1 % (39.0-53.0); HGB 9.1 gm/dL (13.0-17.5); Hypochromasia Slight; Lymphocytes # (A) 2.4 k/uL (1.0-4.8); Lymphocytes % (A) 27 %; MCH 39.2 pg (25.0-35.0); MCHC 32.3 g/dL (31.0-37.0); MCV 121.2 fL (80.0-100.0); Macrocytosis Marked; Mean Platelet Volume 8.9; Monocytes # (A) 0.4 k/uL (0-1.0); Monocytes % (A) 4 %; Neutrophils # (A) 5.7 k/uL (1.3-7.7); Neutrophils % (A) 64 %; Platelet Count 200 k/uL (150-450); RBC 2.32 m/uL (4.30-5.90); RDW 17.6 % (11.5-15.5); WBC 8.9 k/uL (3.8-10.6)
[2024-05-29 09:40] LABS: African American GFR (CKD) >90 (>60 ml/min/1.73 sqM); Anion Gap 5 mmol/L; Blood Urea Nitrogen 4 mg/dL (9-20); Carbon Dioxide 28 mmol/L (22-30); Chloride 102 mmol/L (98-107); Glucose 114 mg/dL (74-99); Magnesium 1.8 mg/dL (1.6-2.3); Non-African American GFR(CKD) >90 (>60 ml/min/1.73 sqM); Phosphorus 2.3 mg/dL (2.5-4.5); Potassium 3.1 mmol/L (3.5-5.1); Sodium 135 mmol/L (137-145)
[2024-05-29 11:23] LABS: Glucose,Whole Blood 128 mg/dL (70-110)
--- NOTE | 2024-05-29 13:58 | P.PN ---
Subjective Hospital Course:: Patient is a 48-year-old male with a past medical history of alcoholism, alcoholic cirrhosis, hypertension, and nicotine dependence. He presented to the emergency department via EMS for psychiatric evaluation and treatment of self- inflicted lacerations to left forearm. Upon arrival to our facility, patient was found to have 4 self-inflicted lacerations to left forearm and wrist. He underwent evaluation in the emergency department and repair of these lacerations via a total of 16 sutures. Vital signs upon arrival show blood pressure 138/92, heart rate 132, respiratory rate 20, temp 97.8 F, and SpO2 of 99% on room air. Labs completed and reviewed. CBC showing macrocytic anemia with hemoglobin of 11.3 and MCV of 114.9. Coagulation profile showing elevated PT of 13.3 and INR of 1.3. BMP showing sodium of 134, potassium of 2.6, chloride of 92, bicarb of 30, and anion gap elevated at 12. Blood glucose 215. Liver profile showing total bili of 11.2, AST of 248, ALT of 79, and alkaline phosphatase of 238. Urinalysis positive for protein, glucose, ketones, and bilirubin. Salicylates less than 1. Acetaminophen less than 10. Serum alcohol level less than 10. Urine drug screen positive for barbiturates and benzodiazepines. CT abdomen and pelvis was completed showing hepatomegaly with marked diffuse fatty infiltration of liver, no biliary dilation or ascites. Also revealing moderate calcified plaque of the infrarenal abdominal aorta extending into iliac branch vessels and a tiny fat-containing umbilical hernia. Patient was admitted under our services with consultation to psychiatry. Subjective: 05/28 Patient seen and fully evaluated at the bedside this morning. Patient was resting comfortably, sleeping There is a sitter at bedside, sitter states that he is 7 AM, patient has been sleeping okay since coming to complaints at this time Physical exam: Vital signs reviewed and stable. General: Nontoxic, no distress and appears stated age. Derm: Skin warm and dry, normal coloration for ethnicity.. Lacerations to left wrist, sutures in place (total of 16 sutures) Head: Atraumatic, normocephalic and symmetric. Eyes: EOM's intact, no lid lag, and anicteric sclera Mouth: no lip lesions, mucus membranes moist Cardiovascular: regular rate and rhythm with normal S1S2, no murmur, positive posterior tibial pulses bilaterally, and cap refill < 2 seconds. Lungs: Respirations even, regular, and unlabored on room air. Lungs CTA bilaterally, no rhonchi, no rales, no wheezing, and no accessory muscle usage. Abdominal: Obese abdomen, nontender to palpation, no guarding, hepatomegaly Ext: ROM intact. No gross muscle atrophy, no edema, no contractures Neuro/Psych: Stable with no outbursts, sleepy Assessment and Plan of Care: Alcohol withdraw in active alcoholic Alcoholic cirrhosis Severe hypokalemia and hypomagnesemia Hypochloremic hyponatremia High anion gap metabolic alkalosis -Continue monitoring of CIWA scores and patient to be medicated with Ativan 0.5 mg every 4 hours as needed for CIWA score of 4-5, Ativan 1 mg every 4 hours for CIWA score of 6-7, Ativan 2 mg every 3 hours CIWA score of 8-9, and Ativan 2 mg every 2 hours forr CIWA score of 10 or greater. -Continuous IV hydration with 0.9% normal saline at 130 cc/h. -Thiamine 100 mg daily, and Multivitamin daily, and Folate 1 mg daily -Seizure, fall, aspiration, and elopement precautions in place. -Urine drug screen positive for barbiturates and benzodiazepines -Continued close monitoring of electrolytes and replace as needed. -Telemetry monitoring. -MELD score is 21 points showing a 19.6% estimated 3-month mortality -Should patient not be able to be controlled with Ativan, may benefit from Precedex drip, continue to monitor for now Suicidal ideations with self injury multiple lacerations to Left arm/wrist requiring repair with sutures in the emergency department -Suicide precautions in place one-to-one sitter at all times. -Psychiatry consulted, awaiting evaluation and recommendations. -Continue wound care/dressing changes to the lacerations on left wrist. Hyperglycemia, newly diagnosed diabetes mellitus type 2 with hemoglobin A1c of 8.5%. -Patient will require oral hypoglycemic agents on discharge. At this time we will continue with glycemic protocol and NovoLog sliding scale. QTc prolongation QTC > 600 2 g mag sulfate IV x 1 dose ordered Repeat EKG Reviewed medication, discontinue all QTc prolonging medications Maintain patient on cardiac telemetry 05/29 Patient seen and examined at bedside He is still sleepy but starting to wake up more No acute overnight events I did perform a repeat EKG that was interpreted by me, QTc is improved to <450 He received 2 g mag sulfate Advised nurse to keep the lights on and to encourage patient to get out of bed Sitter is also at bedside Vitals are stable otherwise CODE STATUS: Full code DVT prophylaxis: SCDs Objective - Vital Signs Vital signs: Vital Signs Temp 98.7 F 05/29/24 03:42 Pulse 90 05/29/24 08:00 Resp 16 05/29/24 03:42 BP 103/65 05/29/24 03:42 Pulse Ox 95 05/29/24 03:42 FiO2 Intake & Output 05/28/24 05/29/24 05/29/24 18:59 06:59 18:59 Intake Total 1058 120 Output Total 0 Balance 1058 0 120 Intake: Intake, IV Titration 400 Amount Magnesium Sulfate-D5w Pmx 400 1 gm In Dextrose/Water 1 100ml.bag @ 100 mls/hr IVPB Q1H ADRIÁN Rx#: [id number] Oral 658 120 Output: Urine 0 Other: Voiding Method Diaper Diaper Diaper Incontinent Incontinent Incontinent # Voids 1 1 # Bowel Movements 1 - Labs CBC & Chem 7: 05/29/24 08:49 05/29/24 08:49 Labs: Abnormal Lab Results - Last 24 Hours (Table) 05/28/24 05/28/24 05/29/24 Range/Units 16:43 19:55 05:55 RBC (4.30-5.90) m/uL Hgb (13.0-17.5) gm/dL Hct (39.0-53.0) % MCV (80.0-100.0) fL MCH (25.0-35.0) pg RDW (11.5-15.5) % Macrocytosis Sodium (137-145) mmol/L Potassium (3.5-5.1) mmol/L BUN (9-20) mg/dL Creatinine (0.66-1.25) mg/dL Glucose (74-99) mg/dL POC Glucose (mg/dL) 171 H 222 H 149 H (70-110) mg/dL Calcium (8.4-10.2) mg/dL Phosphorus (2.5-4.5) mg/dL 05/29/24 05/29/24 05/29/24 Range/Units 08:49 08:49 11:19 RBC 2.32 L (4.30-5.90) m/uL Hgb 9.1 L (13.0-17.5) gm/dL Hct 28.1 L (39.0-53.0) % MCV 121.2 H (80.0-100.0) fL MCH 39.2 H (25.0-35.0) pg RDW 17.6 H (11.5-15.5) % Macrocytosis Marked A Sodium 135 L (137-145) mmol/L Potassium 3.1 L (3.5-5.1) mmol/L BUN 4 L (9-20) mg/dL Creatinine 0.61 L (0.66-1.25) mg/dL Glucose 114 H (74-99) mg/dL POC Glucose (mg/dL) 128 H (70-110) mg/dL Calcium 7.0 L (8.4-10.2) mg/dL Phosphorus 2.3 L (2.5-4.5) mg/dL
[2024-05-29 16:07] LABS: Glucose,Whole Blood 138 mg/dL (70-110)
[2024-05-29 20:09] LABS: Glucose,Whole Blood 217 mg/dL (70-110)
[2024-05-29] MEDS: POTASSIUM CHLORIDE ER 20 MEQ TAB.ER PO SCH (20:38)
[2024-05-30 06:08] LABS: Glucose,Whole Blood 129 mg/dL (70-110)
[2024-05-30 11:17] LABS: Glucose,Whole Blood 171 mg/dL (70-110)
[2024-05-30] MEDS: LORazepam 0.5 MG TAB PO PRN (11:47)
--- NOTE | 2024-05-30 14:49 | P.PN ---
Subjective Progress Note Date: 05/30/24 Principal diagnosis: Alcohol withdrawal and suicidal ideations Patient is a 48-year-old male with history of alcoholism cirrhosis hypertension who was evaluated for self-inflicted laceration to his left forearm. Patient had his laceration sutured. Patient has since been hospitalized for alcohol withdrawal. Drug screen was positive for barbiturates and benzodiazepine. The CT of the abdomen and pelvis which showed hepatomegaly with diffuse fatty infiltration of the liver. Objective - Vital Signs Vital signs: Vital Signs Temp 98.0 F 05/30/24 07:38 Pulse 103 H 05/30/24 12:55 Resp 18 05/30/24 12:55 BP 115/80 05/30/24 07:38 Pulse Ox 95 05/30/24 07:38 FiO2 Intake & Output 05/29/24 05/30/24 05/30/24 18:59 06:59 18:59 Intake Total 120 370 Balance 120 370 Intake: IV 10 Invasive Line 5 10 Oral 120 360 Other: Voiding Method Diaper Diaper Diaper Incontinent Incontinent Incontinent # Voids 1 1 1 # Bowel Movements 1 1 2 - Constitutional General appearance: Present: no acute distress - Respiratory Respiratory: bilateral: CTA - Cardiovascular Rhythm: regular - Gastrointestinal General gastrointestinal: Present: normal bowel sounds - Psychiatric Psychiatric Comment(s): Flat Affect - Labs CBC & Chem 7: 05/29/24 08:49 05/29/24 08:49 Labs: Abnormal Lab Results - Last 24 Hours (Table) 05/29/24 05/29/24 05/30/24 Range/Units 16:02 20:08 06:05 POC Glucose (mg/dL) 138 H 217 H 129 H (70-110) mg/dL 05/30/24 Range/Units 11:12 POC Glucose (mg/dL) 171 H (70-110) mg/dL Assessment and Plan (1) Alcohol withdrawal Current Visit: Yes Status: Acute Code(s): F10.939 - ALCOHOL USE, UNSPECIFIED WITH WITHDRAWAL, UNSPECIFIED SNOMED Code(s): 391941361 (2) Attempted suicide Current Visit: Yes Status: Acute Code(s): T14.91XA - SUICIDE ATTEMPT, INITIAL ENCOUNTER SNOMED Code(s): 28720224 (3) Alcoholic liver disease Current Visit: Yes Status: Acute Code(s): K70.9 - ALCOHOLIC LIVER DISEASE, UNSPECIFIED SNOMED Code(s): 03783350 Plan: One-to-one sitter, seen by psychiatry 05/27 and is appropriate for inpatient admission. [facility] protocol. Discharge to inpatient psych when bed available
[2024-05-30 16:11] LABS: Glucose,Whole Blood 141 mg/dL (70-110)
[2024-05-30 20:08] LABS: Glucose,Whole Blood 182 mg/dL (70-110)
[2024-05-30] MEDS: LORazepam 1 MG TAB PO PRN (21:48)
[2024-05-31 06:00] LABS: Glucose,Whole Blood 137 mg/dL (70-110)
--- NOTE | 2024-05-31 10:35 | P.PN ---
Subjective Hospital Course:: Patient is a 48-year-old male with a past medical history of alcoholism, alcoholic cirrhosis, hypertension, and nicotine dependence. He presented to the emergency department via EMS for psychiatric evaluation and treatment of self- inflicted lacerations to left forearm. Upon arrival to our facility, patient was found to have 4 self-inflicted lacerations to left forearm and wrist. He underwent evaluation in the emergency department and repair of these lacerations via a total of 16 sutures. Vital signs upon arrival show blood pressure 138/92, heart rate 132, respiratory rate 20, temp 97.8 F, and SpO2 of 99% on room air. Labs completed and reviewed. CBC showing macrocytic anemia with hemoglobin of 11.3 and MCV of 114.9. Coagulation profile showing elevated PT of 13.3 and INR of 1.3. BMP showing sodium of 134, potassium of 2.6, chloride of 92, bicarb of 30, and anion gap elevated at 12. Blood glucose 215. Liver profile showing total bili of 11.2, AST of 248, ALT of 79, and alkaline phosphatase of 238. Urinalysis positive for protein, glucose, ketones, and bilirubin. Salicylates less than 1. Acetaminophen less than 10. Serum alcohol level less than 10. Urine drug screen positive for barbiturates and benzodiazepines. CT abdomen and pelvis was completed showing hepatomegaly with marked diffuse fatty infiltration of liver, no biliary dilation or ascites. Also revealing moderate calcified plaque of the infrarenal abdominal aorta extending into iliac branch vessels and a tiny fat-containing umbilical hernia. Patient was admitted under our services with consultation to psychiatry. Subjective: 05/28 Patient seen and fully evaluated at the bedside this morning. Patient was resting comfortably, sleeping There is a sitter at bedside, sitter states that he is 7 AM, patient has been sleeping okay since coming to complaints at this time Physical exam: Vital signs reviewed and stable. General: Nontoxic, no distress and appears stated age. Derm: Skin warm and dry, normal coloration for ethnicity.. Lacerations to left wrist, sutures in place (total of 16 sutures) Head: Atraumatic, normocephalic and symmetric. Eyes: EOM's intact, no lid lag, and anicteric sclera Mouth: no lip lesions, mucus membranes moist Cardiovascular: regular rate and rhythm with normal S1S2, no murmur, positive posterior tibial pulses bilaterally, and cap refill < 2 seconds. Lungs: Respirations even, regular, and unlabored on room air. Lungs CTA bilaterally, no rhonchi, no rales, no wheezing, and no accessory muscle usage. Abdominal: Obese abdomen, nontender to palpation, no guarding, hepatomegaly Ext: ROM intact. No gross muscle atrophy, no edema, no contractures Neuro/Psych: Stable with no outbursts, sleepy Assessment and Plan of Care: Alcohol withdraw in active alcoholic Alcoholic cirrhosis Severe hypokalemia and hypomagnesemia Hypochloremic hyponatremia High anion gap metabolic alkalosis -Continue monitoring of CIWA scores and patient to be medicated with Ativan 0.5 mg every 4 hours as needed for CIWA score of 4-5, Ativan 1 mg every 4 hours for CIWA score of 6-7, Ativan 2 mg every 3 hours CIWA score of 8-9, and Ativan 2 mg every 2 hours forr CIWA score of 10 or greater. -Continuous IV hydration with 0.9% normal saline at 130 cc/h. -Thiamine 100 mg daily, and Multivitamin daily, and Folate 1 mg daily -Seizure, fall, aspiration, and elopement precautions in place. -Urine drug screen positive for barbiturates and benzodiazepines -Continued close monitoring of electrolytes and replace as needed. -Telemetry monitoring. -MELD score is 21 points showing a 19.6% estimated 3-month mortality -Should patient not be able to be controlled with Ativan, may benefit from Precedex drip, continue to monitor for now Suicidal ideations with self injury multiple lacerations to Left arm/wrist requiring repair with sutures in the emergency department -Suicide precautions in place one-to-one sitter at all times. -Psychiatry consulted, awaiting evaluation and recommendations. -Continue wound care/dressing changes to the lacerations on left wrist. Hyperglycemia, newly diagnosed diabetes mellitus type 2 with hemoglobin A1c of 8.5%. -Patient will require oral hypoglycemic agents on discharge. At this time we will continue with glycemic protocol and NovoLog sliding scale. QTc prolongation QTC > 600 2 g mag sulfate IV x 1 dose ordered Repeat EKG Reviewed medication, discontinue all QTc prolonging medications Maintain patient on cardiac telemetry 05/29 Patient seen and examined at bedside He is still sleepy but starting to wake up more No acute overnight events I did perform a repeat EKG that was interpreted by me, QTc is improved to <450 He received 2 g mag sulfate Advised nurse to keep the lights on and to encourage patient to get out of bed Sitter is also at bedside Vitals are stable otherwise 05/31 Patient seen and examined at bedside Sitter also at bedside Patient is appropriate and accepted for inpatient psychiatric treatment Stable from the medical standpoint to be discharged to inpatient psych when bed is available Continue current management Courage patient to get out of bed, would like him up and chair today Per the sitter, patient did have breakfast this morning but the patient himself denied CODE STATUS: Full code DVT prophylaxis: SCDs Objective - Vital Signs Vital signs: Vital Signs Temp 98.2 F 05/31/24 03:41 Pulse 87 05/31/24 10:11 Resp 14 05/31/24 10:11 BP 92/50 05/31/24 10:11 Pulse Ox 95 05/31/24 10:11 FiO2 Intake & Output 05/30/24 05/31/24 05/31/24 18:59 06:59 18:59 Intake Total 370 Balance 370 Intake: IV 10 Invasive Line 5 10 Oral 360 Other: Voiding Method Diaper Diaper Incontinent Incontinent # Voids 1 # Bowel Movements 2 2 1 - Labs CBC & Chem 7: 05/29/24 08:49 05/29/24 08:49 Labs: Abnormal Lab Results - Last 24 Hours (Table) 05/30/24 05/30/24 05/30/24 Range/Units 11:12 16:06 20:06 POC Glucose (mg/dL) 171 H 141 H 182 H (70-110) mg/dL 05/31/24 Range/Units 05:54 POC Glucose (mg/dL) 137 H (70-110) mg/dL
[2024-05-31 11:45] LABS: Glucose,Whole Blood 148 mg/dL (70-110)
[2024-05-31 16:07] LABS: Glucose,Whole Blood 149 mg/dL (70-110)
[2024-05-31 19:44] LABS: Glucose,Whole Blood 132 mg/dL (70-110)
[2024-06-01 06:06] LABS: Glucose,Whole Blood 143 mg/dL (70-110)
[2024-06-01 09:16] VITALS: BMI 34.3
[2024-06-01] MEDS ORDERED: VANCOMYCIN IV PER PHARMACY 1 EACH MISC MISCELLANE PRN (11:16)
[2024-06-01 11:18] LABS: Glucose,Whole Blood 231 mg/dL (70-110)
[2024-06-01] MEDS: ACETAMINOPHEN TAB 325 MG TAB PO PRN (11:55)
[2024-06-01 12:17] LABS: Anisocytosis Slight; HCT 32.6 % (39.0-53.0); HGB 10.3 gm/dL (13.0-17.5); Hypochromasia Marked; MCH 39.4 pg (25.0-35.0); MCHC 31.6 g/dL (31.0-37.0); MCV 124.8 fL (80.0-100.0); Macrocytosis Marked; Mean Platelet Volume 8.9; Platelet Count 235 k/uL (150-450); Poikilocytosis Slight; RBC 2.61 m/uL (4.30-5.90); WBC 8.4 k/uL (3.8-10.6)
[2024-06-01 12:22] LABS: ALT 63 U/L (4-49); AST 186 U/L (17-59); African American GFR (CKD) >90 (>60 ml/min/1.73 sqM); Alkaline Phosphatase 199 U/L (38-126); Anion Gap 9 mmol/L; Blood Urea Nitrogen 3 mg/dL (9-20); Carbon Dioxide 18 mmol/L (22-30); Chloride 112 mmol/L (98-107); Glucose 184 mg/dL (74-99); Non-African American GFR(CKD) >90 (>60 ml/min/1.73 sqM); Potassium 3.9 mmol/L (3.5-5.1); Sodium 139 mmol/L (137-145); Total Bilirubin 14.3 mg/dL (0.2-1.3)
[2024-06-01] MEDS: MUPIROCIN 2% OINT 22 GM TUBE TOPICAL SCH (12:44)
[2024-06-01] MEDS: VANCOMYCIN 1,750 MG in SODIUM CHLORIDE 0.9% 500 ML 500 ML IVPB SCH (12:44)
--- NOTE | 2024-06-01 13:41 | P.PN ---
Subjective Progress Note Date: 06/01/24 Patient is a 48-year-old male with known alcoholic cirrhosis, HTN, and nicotine dependence who presented for psychiatric evaluation due to self-inflicted lacerations to left forearm. Underwent repair in the emergency department with a total of 16 sutures. Initial vital signs were within normal limits. Initial laboratory analysis was remarkable for hemoglobin 11.3, potassium of 2.6, total bilirubin 11.2, AST of 248, and ALT of 79. Underwent CT abdomen and pelvis which showed hepatomegaly with marked fatty infiltration of the liver but no biliary dilatation or ascites. Of note there was an infrarenal abdominal aortic aneurysm extending into the iliac branches and a fat-containing umbilical hernia. Had high CIWA score on arrival was placed on scheduled Librium and continued on IV Ativan as needed. Patient seen and examined at bedside. Denies any pain, reports headache, denies any arm pain. No nausea or vomiting. Last bowel movement today. Does not follow with GI. Vital signs reviewed General: Nontoxic, no distress, appears at stated age Cardiovascular: S1S2 reg, no murmur Lungs: CTA bilateral, no rhonchi, no rales, no accessory muscle use Abdominal: Soft, nontender to palpation, no guarding Ext: No gross muscle atrophy, no edema b/l lower extremities, no contractures Neuro: CN II-XI grossly intact, no focal neuro deficits Psych: Lethargic and has difficulty staying awake during exam, oriented, appropriate affect Dermatologic: 4 separate lacerations status post repair. Laceration over last wrist with wound dehiscence, erythema, warmth, and purulent drainage Assessment/Plan: Suicidal ideation with self-inflicted left arm lacerations status post repair in the ER with wound dehiscence of the left wrist accompanied by purulent drainage and erythema Left wrist infected self inflicted woud with surrounding cellulitis. -Case discussed with surgery who will evaluate wound dehiscence -Start Vanco IV piggyback with pharmacy to dose, rochepin IVPB D#1 -Stat CBC and CMP -Mupirocin to open wound -Repeat CBC in AM. -Transfer to psych when medically stable. Alcohol withdraw in active alcoholic Alcoholic cirrhosis Toxic metabolic encephalopathy-hyperammonia anemia versus benzodiazepine -Check stat ammonia level found to be elevated at 64. 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 -MELD score on admission was 21 points showing a 19.6% estimated 3-month mortality. Hyperglycemia, newly diagnosed diabetes mellitus type 2 - hemoglobin A1c 8.5%. -Sliding scale insulin, follow blood sugars -Patient will require oral hypoglycemic agents on discharge HTN -Continue with Norvasc -Continue to follow blood pressures Severe hypokalemia and hypomagnesemia, resolved Hypochloremic hyponatremia, resolved High anion gap metabolic alkalosis, resolved Imaging: No new Data Review: Stat CBC and CMP ordered and reviewed white blood cell count remains normal at 8.4. Bilirubin elevated to 14.3, AST 63, ALT 199 DVT prophylaxis: Start heparin 5000 SQ 3 times daily Anticipated discharge date: Pending clinical course Anticipated discharge place: Pending clinical course This dictation was prepared using [employer] voice recognition software. Though every attempt is made to correct errors during dictation some may still exist. Objective - Vital Signs Vital signs: Vital Signs Temp 98.3 F 06/01/24 07:47 Pulse 93 06/01/24 07:47 Resp 18 06/01/24 07:47 BP 118/78 06/01/24 07:47 Pulse Ox 97 06/01/24 07:47 FiO2 Intake & Output 05/31/24 06/01/24 06/01/24 18:59 06:59 18:59 Intake Total 540 Balance 540 Weight 108.6 kg Intake: Oral 540 Other: Voiding Method Bedside Commode Diaper Diaper Incontinent Incontinent # Voids 1 3 # Bowel Movements 1 3 - Labs CBC & Chem 7: 06/01/24 11:45 06/01/24 11:45 Labs: Abnormal Lab Results - Last 24 Hours (Table) 05/31/24 05/31/24 05/31/24 Range/Units 11:44 16:05 19:42 POC Glucose (mg/dL) 148 H 149 H 132 H (70-110) mg/dL 06/01/24 Range/Units 06:03 POC Glucose (mg/dL) 143 H (70-110) mg/dL
[2024-06-01 16:24] LABS: Glucose,Whole Blood 114 mg/dL (70-110)
[2024-06-01] MEDS: LACTULOSE 20 GM/30 ML CUP PO SCH (17:16)
[2024-06-01 20:24] LABS: Glucose,Whole Blood 167 mg/dL (70-110)
--- NOTE | 2024-06-02 01:45 | P.PN ---
Progress Note - Text Progress Note Date: 06/02/24 Was reported by the nursing staff that the patient had a fall at approximately 2200 on 06/01/2024. The fall was witnessed by the sitter who is in the room with the patient. The patient wanted to get up to go to the bathroom, the sitter thought with their assistance the patient would be able to make it to the bathroom without his walker. It was at that time he was noted to have fallen, landing on both of his knees. The patient did not hit his head or his hip. On examination there are no scrapes, bruises, or sores on either of his knees. He is reporting no pain at this time, and is resting comfortably.
[2024-06-02 06:08] LABS: Glucose,Whole Blood 142 mg/dL (70-110)
[2024-06-02 11:06] LABS: ALT 59 U/L (4-49); AST 166 U/L (17-59); African American GFR (CKD) >90 (>60 ml/min/1.73 sqM); Albumin 2.8 g/dL (3.5-5.0); Alkaline Phosphatase 172 U/L (38-126); Anion Gap 11 mmol/L; Blood Urea Nitrogen 5 mg/dL (9-20); Calcium 8.4 mg/dL (8.4-10.2); Carbon Dioxide 18 mmol/L (22-30); Chloride 111 mmol/L (98-107); Glucose 141 mg/dL (74-99); Non-African American GFR(CKD) >90 (>60 ml/min/1.73 sqM); Sodium 140 mmol/L (137-145); Total Bilirubin 13.9 mg/dL (0.2-1.3); Total Protein 5.7 g/dL (6.3-8.2)
[2024-06-02 11:26] LABS: Glucose,Whole Blood 146 mg/dL (70-110)
[2024-06-02 11:32] LABS: INR 1.4 (<1.2); Prothrombin Time 14.6 sec (10.0-12.5)
--- NOTE | 2024-06-02 11:35 | CT ---
EXAMINATION TYPE: CT brain cspine wo con DATE OF EXAM: 06/02/2024 11:18 AM COMPARISON: None. CLINICAL INDICATION: Male, 48 years old with history of fall neck pain; fall neck pain TECHNIQUE: Brain: Multiple axial CT images of the brain were obtained without IV contrast. Cspine: Axial CT images from the skull base to the inferior aspect of T2 we obtained without intraven ous contrast. Coronal and sagittal reformatted images were also reviewed. . CT DLP: 1808.2 mGycm, Automated exposure control for dose reduction was used. FINDINGS: Brain: Extra-axial spaces: No abnormal extra-axial fluid collections. Ventricular system: Within normal limits Cerebral parenchyma: No acute intraparenchymal hemorrhage or mass effect. The mosquera-white junction is well differentiated. Cerebellum: Unremarkable. Mass effect: No evidence of midline shift. Intracranial vasculature: unremarkable Soft tissues: Normal. Calvarium/osseous structures: No depressed skull fracture. Paranasal sinuses and mastoid air cells: Clear. Visualized orbits: Orbital contents are intact. Cervical spine: Fracture: None. Osseous structures: Multilevel degenerative disc disease changes with endplate spurring and disc oste ophyte complex's. Vertebral alignment: Within normal limits. Spinal canal/Neural Foramina: No evidence of significant spinal canal narrowing. No evidence for sign ificant neural foraminal stenosis. Neck soft tissues: Prevertebral soft tissues are within normal limits. Other: The airway is patent. The lung apices are clear. Atherosclerosis of the carotid bifurcations. IMPRESSION: 1. No acute intracranial process. 2. No evidence of cervical spine fracture. 3. Mild multilevel degenerative disc disease. [facility], , 06/02/2024 11:33 AM
[2024-06-02 13:41] LABS: Anisocytosis Slight; Basophils # (A) 0.1 k/uL (0-0.2); Basophils % (A) 1 %; Eosinophils # (A) 0.2 k/uL (0-0.7); Eosinophils % (A) 2 %; HCT 30.7 % (39.0-53.0); HGB 9.7 gm/dL (13.0-17.5); Hypochromasia Marked; Lymphocytes # (A) 1.6 k/uL (1.0-4.8); Lymphocytes % (A) 23 %; MCH 39.1 pg (25.0-35.0); MCHC 31.6 g/dL (31.0-37.0); MCV 123.6 fL (80.0-100.0); Macrocytosis Marked; Mean Platelet Volume 8.9; Monocytes # (A) 0.4 k/uL (0-1.0); Monocytes % (A) 6 %; Neutrophils # (A) 4.5 k/uL (1.3-7.7); Neutrophils % (A) 65 %; Platelet Count 258 k/uL (150-450); Poikilocytosis Slight; RBC 2.49 m/uL (4.30-5.90); RDW 17.9 % (11.5-15.5)
--- NOTE | 2024-06-02 14:56 | P.PN ---
Subjective Progress Note Date: 06/02/24 (delayed charting seen at 1030) Patient is a 48-year-old male with known alcoholic cirrhosis, HTN, and nicotine dependence who presented for psychiatric evaluation due to self-inflicted lacerations to left forearm. Underwent repair in the emergency department with a total of 16 sutures. Initial vital signs were within normal limits. Initial laboratory analysis was remarkable for hemoglobin 11.3, potassium of 2.6, total bilirubin 11.2, AST of 248, and ALT of 79. Underwent CT abdomen and pelvis which showed hepatomegaly with marked fatty infiltration of the liver but no biliary dilatation or ascites. Of note there was an infrarenal abdominal aortic aneurysm extending into the iliac branches and a fat-containing umbilical hernia. Had high CIWA score on arrival was placed on scheduled Librium and continued on IV Ativan as needed. Noted to have worsening cellulitis at the wrist. Patient seen and examined at bedside. More tired today. Complaining of a headache and nausea. Overall just not feeling well a lot of bodyaches. Vital signs reviewed General: Nontoxic, no distress, appears at stated age Cardiovascular: S1S2 reg, no murmur Lungs: CTA bilateral, no rhonchi, no rales, no accessory muscle use Abdominal: Soft, nontender to palpation, no guarding Ext: No gross muscle atrophy, no edema b/l lower extremities, no contractures Neuro: CN II-XI grossly intact, no focal neuro deficits Psych: Lethargic and has difficulty staying awake during exam, oriented, appropriate affect Dermatologic: 4 separate lacerations status post repair. Laceration over last wrist with wound dehiscence, erythema, warmth, and purulent drainage- improving since yesterday Assessment/Plan: Suicidal ideation with self-inflicted left arm lacerations status post repair in the ER with wound dehiscence of the left wrist accompanied by purulent drainage and erythema Left wrist infected self inflicted woud with surrounding cellulitis. -Vanco IV piggyback with pharmacy to dose D#2- monito cr and through -Mupirocin to open wound -Transfer to psych when medically stable. 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 Neck pain after a fall -Stat CT head and cervical spine ordered which showed no evidence of acute fracture. Hyperglycemia, newly diagnosed diabetes mellitus type 2 - hemoglobin A1c 8.5%. -Sliding scale insulin, follow blood sugars -Patient will require oral hypoglycemic agents on discharge HTN -Continue with Norvasc -Continue to follow blood pressures Severe hypokalemia and hypomagnesemia, resolved Hypochloremic hyponatremia, resolved High anion gap metabolic alkalosis, resolved Imaging: No new Data Review: Labs reviewed from today include CBC and CMP which are remarkable for hemoglobin 9.7, INR 1.4, chloride 111, carbon dioxide 18, total bilirubin 13.6, AST 166, ALT 59. Ammonia level improving at 54. DVT prophylaxis: Start heparin 5000 SQ 3 times daily Anticipated discharge date: Pending clinical course Anticipated discharge place: Pending clinical course This dictation was prepared using [employer] voice recognition software. Though every attempt is made to correct errors during dictation some may still exist. Objective - Vital Signs Vital signs: Vital Signs Temp 98.5 F 06/02/24 09:40 Pulse 89 06/02/24 09:40 Resp 16 06/02/24 09:40 BP 105/58 06/02/24 09:40 Pulse Ox 92 L 06/02/24 09:40 FiO2 Intake & Output 06/01/24 06/02/24 06/02/24 18:59 06:59 18:59 Intake Total 366 790 660 Output Total 3 Balance 366 787 660 Weight 108.6 kg 100.5 kg Intake: IV 10 10 Invasive Line 6 10 10 Oral 356 780 660 Output: Urine 3 Other: Voiding Method Diaper Diaper Incontinent Incontinent # Voids 1 3 1 # Bowel Movements 1 1 - Labs CBC & Chem 7: 06/02/24 13:17 06/02/24 09:58 Labs: Abnormal Lab Results - Last 24 Hours (Table) 06/01/24 06/01/24 06/02/24 Range/Units 16:19 20:23 06:07 RBC (4.30-5.90) m/uL Hgb (13.0-17.5) gm/dL Hct (39.0-53.0) % MCV (80.0-100.0) fL MCH (25.0-35.0) pg RDW (11.5-15.5) % Macrocytosis PT (10.0-12.5) sec INR (<1.2) Chloride (98-107) mmol/L Carbon Dioxide (22-30) mmol/L BUN (9-20) mg/dL Glucose (74-99) mg/dL POC Glucose (mg/dL) 114 H 167 H 142 H (70-110) mg/dL Total Bilirubin (0.2-1.3) mg/dL AST (17-59) U/L ALT (4-49) U/L Alkaline Phosphatase (38-126) U/L Ammonia (<30) umol/L Total Protein (6.3-8.2) g/dL Albumin (3.5-5.0) g/dL 06/02/24 06/02/24 06/02/24 Range/Units 09:58 10:52 10:52 RBC (4.30-5.90) m/uL Hgb (13.0-17.5) gm/dL Hct (39.0-53.0) % MCV (80.0-100.0) fL MCH (25.0-35.0) pg RDW (11.5-15.5) % Macrocytosis PT 14.6 H (10.0-12.5) sec INR 1.4 H (<1.2) Chloride 111 H (98-107) mmol/L Carbon Dioxide 18 L (22-30) mmol/L BUN 5 L (9-20) mg/dL Glucose 141 H (74-99) mg/dL POC Glucose (mg/dL) (70-110) mg/dL Total Bilirubin 13.9 H (0.2-1.3) mg/dL AST 166 H (17-59) U/L ALT 59 H (4-49) U/L Alkaline Phosphatase 172 H (38-126) U/L Ammonia 54 H (<30) umol/L Total Protein 5.7 L (6.3-8.2) g/dL Albumin 2.8 L (3.5-5.0) g/dL 06/02/24 06/02/24 Range/Units 11:23 13:17 RBC 2.49 L (4.30-5.90) m/uL Hgb 9.7 L (13.0-17.5) gm/dL Hct 30.7 L (39.0-53.0) % MCV 123.6 H (80.0-100.0) fL MCH 39.1 H (25.0-35.0) pg RDW 17.9 H (11.5-15.5) % Macrocytosis Marked A PT (10.0-12.5) sec INR (<1.2) Chloride (98-107) mmol/L Carbon Dioxide (22-30) mmol/L BUN (9-20) mg/dL Glucose (74-99) mg/dL POC Glucose (mg/dL) 146 H (70-110) mg/dL Total Bilirubin (0.2-1.3) mg/dL AST (17-59) U/L ALT (4-49) U/L Alkaline Phosphatase (38-126) U/L Ammonia (<30) umol/L Total Protein (6.3-8.2) g/dL Albumin (3.5-5.0) g/dL
--- NOTE | 2024-06-02 15:14 | P.GSCN ---
History of Present Illness History of present illness: Patient is a 48 yo male w/ self inflicted laceration recent suture repair by ED. Denies fevers, chills, shortness of breath or chest pain. Denies difficulty with moving left arm, denies numbness or tingling or pain in left hand. Past Medical History Past Medical History: Hypertension Additional Past Medical History / Comment(s): ETOH, fatty liver, alcoholic liver disease, crohns, colitis, no teeth on top- uses dentures (not with patient) History of Any Multi-Drug Resistant Organisms: None Reported Past Surgical History: No Surgical Hx Reported Additional Past Anesthesia/Blood Transfusion Reaction / Comm: na Past Psychological History: No Psychological Hx Reported Smoking Status: Current every day smoker Past Alcohol Use History: Daily, Heavy Past Drug Use History: None Reported - Past Family History Father Family Medical History: Myocardial Infarction ([place]) Additional Family Medical History / Comment(s): at 58 from [place] Mother Additional Family Medical History / Comment(s): hip replacement/ problems walking. Brother(s) Additional Family Medical History / Comment(s): 2x back surgeries Medications and Allergies Home Medications Medication Instructions Recorded Confirmed Type amLODIPine [Norvasc] 5 mg PO DAILY 05/26/24 05/26/24 History Allergies Allergy/AdvReac Type Severity Reaction Status Date / Time No Known Allergies Allergy Verified 05/26/24 13:25 Surgical - Exam Osteopathic Statement: *. No significant issues noted on an osteopathic structural exam other than those noted in the History and Physical/Consult. Vital Signs Temp Pulse Resp BP Pulse Ox 97.8 F 132 H 20 138/92 99 05/26/24 02:48 05/26/24 02:48 05/26/24 02:48 05/26/24 02:48 05/26/24 02:48 gen: nad cv: rrr pul: non labored abd: soft, non distended, non tender, no guarding or rebound tenderness right extremity demonstrates x 3 lacerations with the most distal having erythema, no purulent material can be expressed from this Results - Labs 06/02/24 13:17 06/02/24 09:58 Abnormal Lab Results - Last 24 Hours (Table) 06/01/24 06/01/24 06/02/24 Range/Units 16:19 20:23 06:07 RBC (4.30-5.90) m/uL Hgb (13.0-17.5) gm/dL Hct (39.0-53.0) % MCV (80.0-100.0) fL MCH (25.0-35.0) pg RDW (11.5-15.5) % Macrocytosis PT (10.0-12.5) sec INR (<1.2) Chloride (98-107) mmol/L Carbon Dioxide (22-30) mmol/L BUN (9-20) mg/dL Glucose (74-99) mg/dL POC Glucose (mg/dL) 114 H 167 H 142 H (70-110) mg/dL Total Bilirubin (0.2-1.3) mg/dL AST (17-59) U/L ALT (4-49) U/L Alkaline Phosphatase (38-126) U/L Ammonia (<30) umol/L Total Protein (6.3-8.2) g/dL Albumin (3.5-5.0) g/dL 06/02/24 06/02/24 06/02/24 Range/Units 09:58 10:52 10:52 RBC (4.30-5.90) m/uL Hgb (13.0-17.5) gm/dL Hct (39.0-53.0) % MCV (80.0-100.0) fL MCH (25.0-35.0) pg RDW (11.5-15.5) % Macrocytosis PT 14.6 H (10.0-12.5) sec INR 1.4 H (<1.2) Chloride 111 H (98-107) mmol/L Carbon Dioxide 18 L (22-30) mmol/L BUN 5 L (9-20) mg/dL Glucose 141 H (74-99) mg/dL POC Glucose (mg/dL) (70-110) mg/dL Total Bilirubin 13.9 H (0.2-1.3) mg/dL AST 166 H (17-59) U/L ALT 59 H (4-49) U/L Alkaline Phosphatase 172 H (38-126) U/L Ammonia 54 H (<30) umol/L Total Protein 5.7 L (6.3-8.2) g/dL Albumin 2.8 L (3.5-5.0) g/dL 06/02/24 06/02/24 Range/Units 11:23 13:17 RBC 2.49 L (4.30-5.90) m/uL Hgb 9.7 L (13.0-17.5) gm/dL Hct 30.7 L (39.0-53.0) % MCV 123.6 H (80.0-100.0) fL MCH 39.1 H (25.0-35.0) pg RDW 17.9 H (11.5-15.5) % Macrocytosis Marked A PT (10.0-12.5) sec INR (<1.2) Chloride (98-107) mmol/L Carbon Dioxide (22-30) mmol/L BUN (9-20) mg/dL Glucose (74-99) mg/dL POC Glucose (mg/dL) 146 H (70-110) mg/dL Total Bilirubin (0.2-1.3) mg/dL AST (17-59) U/L ALT (4-49) U/L Alkaline Phosphatase (38-126) U/L Ammonia (<30) umol/L Total Protein (6.3-8.2) g/dL Albumin (3.5-5.0) g/dL Diabetes panel 06/02/24 Range/Units 09:58 Sodium 140 (137-145) mmol/L Potassium 4.0 (3.5-5.1) mmol/L Chloride 111 H (98-107) mmol/L Carbon Dioxide 18 L (22-30) mmol/L BUN 5 L (9-20) mg/dL Creatinine 0.73 (0.66-1.25) mg/dL Glucose 141 H (74-99) mg/dL Calcium 8.4 (8.4-10.2) mg/dL AST 166 H (17-59) U/L ALT 59 H (4-49) U/L Alkaline Phosphatase 172 H (38-126) U/L Total Protein 5.7 L (6.3-8.2) g/dL Albumin 2.8 L (3.5-5.0) g/dL Calcium panel 06/02/24 Range/Units 09:58 Calcium 8.4 (8.4-10.2) mg/dL Albumin 2.8 L (3.5-5.0) g/dL Pituitary panel 06/02/24 Range/Units 09:58 Sodium 140 (137-145) mmol/L Potassium 4.0 (3.5-5.1) mmol/L Chloride 111 H (98-107) mmol/L Carbon Dioxide 18 L (22-30) mmol/L BUN 5 L (9-20) mg/dL Creatinine 0.73 (0.66-1.25) mg/dL Glucose 141 H (74-99) mg/dL Calcium 8.4 (8.4-10.2) mg/dL Adrenal panel 06/02/24 Range/Units 09:58 Sodium 140 (137-145) mmol/L Potassium 4.0 (3.5-5.1) mmol/L Chloride 111 H (98-107) mmol/L Carbon Dioxide 18 L (22-30) mmol/L BUN 5 L (9-20) mg/dL Creatinine 0.73 (0.66-1.25) mg/dL Glucose 141 H (74-99) mg/dL Calcium 8.4 (8.4-10.2) mg/dL Total Bilirubin 13.9 H (0.2-1.3) mg/dL AST 166 H (17-59) U/L ALT 59 H (4-49) U/L Alkaline Phosphatase 172 H (38-126) U/L Total Protein 5.7 L (6.3-8.2) g/dL Albumin 2.8 L (3.5-5.0) g/dL Assessment and Plan Assessment: 48 yo male w/ self inflicted left wrist laceration -recent suturing by ER, erythematous no active purulent output -removed one suture on 06/01 with no output -today, much less erythematous -suture out in one week -ok for discharge from surgical standpoint Time with Patient: Less than 30
[2024-06-02 16:41] LABS: Glucose,Whole Blood 132 mg/dL (70-110)
[2024-06-02] MEDS: ONDANSETRON 4 MG/2 ML VIAL IVP PRN (16:48)
[2024-06-02 20:46] LABS: Glucose,Whole Blood 152 mg/dL (70-110)
[2024-06-03 05:32] LABS: ALT 62 U/L (4-49); AST 166 U/L (17-59); African American GFR (CKD) >90 (>60 ml/min/1.73 sqM); Albumin 3.2 g/dL (3.5-5.0); Alkaline Phosphatase 212 U/L (38-126); Anion Gap 14 mmol/L; Blood Urea Nitrogen 5 mg/dL (9-20); Calcium 8.8 mg/dL (8.4-10.2); Carbon Dioxide 12 mmol/L (22-30); Chloride 115 mmol/L (98-107); Glucose 151 mg/dL (74-99); Non-African American GFR(CKD) >90 (>60 ml/min/1.73 sqM); Potassium 3.8 mmol/L (3.5-5.1); Sodium 141 mmol/L (137-145); Total Protein 6.5 g/dL (6.3-8.2)
[2024-06-03 05:47] LABS: Total Bilirubin 15.1 mg/dL (0.2-1.3)
[2024-06-03 05:48] LABS: Anisocytosis Slight; HCT 35.8 % (39.0-53.0); HGB 10.6 gm/dL (13.0-17.5); Hypochromasia Marked; MCH 37.8 pg (25.0-35.0); MCHC 29.7 g/dL (31.0-37.0); Mean Platelet Volume 10.5; Platelet Count 279 k/uL (150-450); Poikilocytosis Slight; RBC 2.82 m/uL (4.30-5.90); RDW 17.5 % (11.5-15.5); WBC 9.3 k/uL (3.8-10.6)
[2024-06-03 05:50] LABS: Macrocytosis Marked
[2024-06-03 06:10] LABS: Glucose,Whole Blood 189 mg/dL (70-110)
[2024-06-03] MEDS ORDERED: VANCOMYCIN IV PER PHARMACY 1 EACH MISC MISCELLANE PRN (06:28)
[2024-06-03] MEDS: VANCOMYCIN TROUGH DUE 1 EACH MISC MISCELLANE ONE (06:48)
--- NOTE | 2024-06-03 10:27 | P.DS ---
Providers Date of admission: 05/26/24 06:13 Expected date of discharge: 06/03/24 Attending physician: Reji Tracey MD Consults: 05/26/24 14:35 Consult Physician Routine Consulting Provider: Psychiatry - [facility] Psych[facility]ry Consult Reason/Comments: suicidal ideations Do you want consulting provider notified?: Already Contacted 06/01/24 11:36 Consult Physician Routine Consulting Provider: Hardik Phillips Consult Reason/Comments: wound infection Do you want consulting provider notified?: Yes Primary care physician: Darell Stiles MD Hospital Course: Discharge Diagnosis: Suicidal ideation with self-inflicted left arm lacerations status post repair in the ER wound dehiscence of the left wrist Left wrist infected self inflicted woud with surrounding cellulitis. Alcohol withdrawal in active alcoholic Alcoholic cirrhosis Toxic metabolic encephalopathy-hyperammonia anemia versus benzodiazepine Neck pain after a fall Hyperglycemia, newly diagnosed diabetes mellitus type 2 HTN Severe hypokalemia and hypomagnesemia Hypochloremic hyponatremia Mixed non-anion gap and anion gap metabolic acidosis Hospital Course: Patient is a 48-year-old male with known alcoholic cirrhosis, HTN, and nicotine dependence who presented for psychiatric evaluation due to self-inflicted lacerations to left forearm. Underwent repair in the emergency department with a total of 16 sutures. Initial vital signs were within normal limits. Initial laboratory analysis was remarkable for hemoglobin 11.3, potassium of 2.6, total bilirubin 11.2, AST of 248, and ALT of 79. Underwent CT abdomen and pelvis which showed hepatomegaly with marked fatty infiltration of the liver but no biliary dilatation or ascites. Of note there was an infrarenal abdominal aortic aneurysm extending into the iliac branches and a fat-containing umbilical hernia. Had high CIWA score on arrival was placed on scheduled Librium and continued on IV Ativan as needed. Patient now out of alcohol withdrawal. Librium discontinued due to cirrhosis. Noted to have worsening cellulitis at the wrist. General surgery was consulted. Patient started on IV antibiotics. General surgery removed 1 suture, will be taking other sutures in 1 week. Patient now being discharged on oral antibiotics. Patient is medically optimized for discharge to psych. Patient seen and examined at bedside. Vital signs reviewed and stable. General: Nontoxic, no distress, appears at stated age Derm: Warm, dry, left wrist shows lacerations status post sutures, with minimal erythema, no purulence Head: Atraumatic, normocephalic, symmetric Eyes: EOMI, no lid lag, anicteric sclera Mouth: No lip lesion, mucus membranes moist Cardiovascular: S1S2 reg, no murmur Lungs: CTA bilateral, no rhonchi, no rales, no accessory muscle use Abdominal: Soft, distended, nontender to palpation, no guarding, no appreciable organomegaly Ext: No gross muscle atrophy, no edema, no contractures Neuro: CN II-XI grossly intact, no focal neuro deficits Psych: Alert, oriented, appropriate affect A total of 36 minutes of time were spent preparing this complex discharge summary. Patient was discharged on 06/03/2024 at 957. Plan - Discharge Summary Discharge Rx Participant: No New Discharge Prescriptions: New Mupirocin 2% Oint [Bactroban 2% Oint] 1 applic TOPICAL TID each Lactulose [Cephulac] 30 gm PO TID ml Folic Acid 1 mg PO DAILY tab Nicotine 21Mg/24Hr Patch [Habitrol] 1 patch TRANSDERM DAILY patch Thiamine [Vitamin B-1] 100 mg PO DAILY tab glipiZIDE 5 mg PO BID #20 tablet Multivitamins, Thera [Multivitamin (formulary)] 1 each PO DAILY tab Acetaminophen Tab [Tylenol] 650 mg PO Q6HR PRN tab PRN Reason: Fever And/ Or Pain Doxycycline [Vibramycin] 100 mg PO BID 10 Days #20 capsule metFORMIN HCL 500 mg PO BID #20 tablet Discontinued amLODIPine [Norvasc] 5 mg PO DAILY Discharge Medication List Acetaminophen Tab [Tylenol] 650 mg PO Q6HR PRN tab 06/03/24 [Rx] Doxycycline [Vibramycin] 100 mg PO BID 10 Days #20 capsule 06/03/24 [Rx] Folic Acid 1 mg PO DAILY tab 06/03/24 [Rx] Lactulose [Cephulac] 30 gm PO TID ml 06/03/24 [Rx] Multivitamins, Thera [Multivitamin (formulary)] 1 each PO DAILY tab 06/03/24 [Rx] Mupirocin 2% Oint [Bactroban 2% Oint] 1 applic TOPICAL TID each 06/03/24 [Rx] Nicotine 21Mg/24Hr Patch [Habitrol] 1 patch TRANSDERM DAILY patch 06/03/24 [Rx] Thiamine [Vitamin B-1] 100 mg PO DAILY tab 06/03/24 [Rx] glipiZIDE 5 mg PO BID #20 tablet 06/03/24 [Rx] metFORMIN HCL 500 mg PO BID #20 tablet 06/03/24 [Rx] Follow up Appointment(s)/Referral(s): Darell Stiles MD [Primary Care Provider] - 1-2 days Patient Instructions/Handouts: Cellulitis (GEN), Alcohol Withdrawal (DC) Activity/Diet/Wound Care/Special Instructions: Please see PCP and will need GI in the future. Remove sutures in 1 week Discharge Disposition: TRANSFER TO PSYCH HOSP/UNIT
[2024-06-03 12:30] LABS: Glucose,Whole Blood 142 mg/dL (70-110)
--- NOTE | 2024-06-03 13:25 | P.PN ---
Subjective Progress Note Date: 06/03/24 SURGICAL PROGRESS NOTE CHIEF COMPLAINT: Self-inflicted laceration to left wrist HISTORY OF PRESENT ILLNESS: Patient with no new complaints. Denies any difficulty moving his arm. Denies any numbness or tingling of the left hand. Pain is controlled. He is scheduled for transfer to psych unit today. A febrile. WBC 9.3 Hgb 10.6 PHYSICAL EXAM: VITAL SIGNS: Reviewed. GENERAL: Well-developed in no acute distress. Extremities: Right wrist with 3 lacerations with sutures. The most distal laceration with erythema. Minimal serous drainage noted on bandage. Other 2 areas of laceration are sutured with no erythema or drainage. ASSESSMENT: 1. Self-inflicted left wrist laceration PLAN: -recent suturing by ER, erythematous no active purulent output -Remove sutures in 1 week -Okay for discharge from surgical standpoint Physician Software Test Manager note has been reviewed by physician. Signing provider agrees with the documented findings, assessment, and plan of care. Objective - Vital Signs Vital signs: Vital Signs Temp 97.5 F L 06/03/24 08:50 Pulse 91 06/03/24 08:50 Resp 16 06/03/24 08:50 BP 100/68 06/03/24 08:50 Pulse Ox 97 06/03/24 08:50 FiO2 Intake & Output 06/02/24 06/03/24 06/03/24 18:59 06:59 18:59 Intake Total 660 300 Balance 660 300 Weight 116.8 kg Intake: Oral 660 300 Other: Voiding Method Diaper Diaper Diaper Incontinent Incontinent Incontinent # Voids 1 4 1 # Bowel Movements 1 2 1 - Labs CBC & Chem 7: 06/03/24 04:25 06/03/24 04:00 Labs: Abnormal Lab Results - Last 24 Hours (Table) 06/02/24 06/02/24 06/02/24 Range/Units 13:17 16:39 20:42 RBC 2.49 L (4.30-5.90) m/uL Hgb 9.7 L (13.0-17.5) gm/dL Hct 30.7 L (39.0-53.0) % MCV 123.6 H (80.0-100.0) fL MCH 39.1 H (25.0-35.0) pg MCHC (31.0-37.0) g/dL RDW 17.9 H (11.5-15.5) % Macrocytosis Marked A Chloride (98-107) mmol/L Carbon Dioxide (22-30) mmol/L BUN (9-20) mg/dL Glucose (74-99) mg/dL POC Glucose (mg/dL) 132 H 152 H (70-110) mg/dL Total Bilirubin (0.2-1.3) mg/dL AST (17-59) U/L ALT (4-49) U/L Alkaline Phosphatase (38-126) U/L Albumin (3.5-5.0) g/dL Vancomycin Trough ug/mL 06/03/24 06/03/24 06/03/24 Range/Units 04:00 04:25 04:25 RBC 2.82 L (4.30-5.90) m/uL Hgb 10.6 L (13.0-17.5) gm/dL Hct 35.8 L (39.0-53.0) % MCV 127.0 H (80.0-100.0) fL MCH 37.8 H (25.0-35.0) pg MCHC 29.7 L (31.0-37.0) g/dL RDW 17.5 H (11.5-15.5) % Macrocytosis Marked A Chloride 115 H (98-107) mmol/L Carbon Dioxide 12 L (22-30) mmol/L BUN 5 L (9-20) mg/dL Glucose 151 H (74-99) mg/dL POC Glucose (mg/dL) (70-110) mg/dL Total Bilirubin 15.1 H* (0.2-1.3) mg/dL AST 166 H (17-59) U/L ALT 62 H (4-49) U/L Alkaline Phosphatase 212 H (38-126) U/L Albumin 3.2 L (3.5-5.0) g/dL Vancomycin Trough 32.1 H* ug/mL 06/03/24 06/03/24 Range/Units 06:08 12:29 RBC (4.30-5.90) m/uL Hgb (13.0-17.5) gm/dL Hct (39.0-53.0) % MCV (80.0-100.0) fL MCH (25.0-35.0) pg MCHC (31.0-37.0) g/dL RDW (11.5-15.5) % Macrocytosis Chloride (98-107) mmol/L Carbon Dioxide (22-30) mmol/L BUN (9-20) mg/dL Glucose (74-99) mg/dL POC Glucose (mg/dL) 189 H 142 H (70-110) mg/dL Total Bilirubin (0.2-1.3) mg/dL AST (17-59) U/L ALT (4-49) U/L Alkaline Phosphatase (38-126) U/L Albumin (3.5-5.0) g/dL Vancomycin Trough ug/mL
[2024-06-03 16:42] LABS: Glucose,Whole Blood 144 mg/dL (70-110)
[2024-06-03 19:45] VITALS: BP 101/70; PULSE 94; RESP 15; TEMP 97.3
[2024-06-03 20:29] LABS: Glucose,Whole Blood 190 mg/dL (70-110)
== END 2024-06-03 23:08 | DRG 775 ==
LOC: EEVIPCON 02:36 → EC 02:36 → 5NMEDONC 06:13 → 3SCARD 05-27 14:33
PROVIDERS: ADMIT Internal Medicine; ATTEND Internal Medicine
PROC: 0HQEXZZ Repair Left Lower Arm Skin, External Approach (ICD-10-PCS; principal; 2024-05-26)
PROC: 05HB33Z Insertion of Infusion Device into Right Basilic Vein, Percutaneous Approach (ICD-10-PCS; 2024-06-03 10:30)
DX: F10.239 Alcohol dependence with withdrawal, unspecified (principal); S51.812A Laceration without foreign body of left forearm, initial encounter; G92.8 Other toxic encephalopathy; T42.4X5A Adverse effect of benzodiazepines, initial encounter; L03.114 Cellulitis of left upper limb; X78.1XXA Intentional self-harm by knife, initial encounter; D53.9 Nutritional anemia, unspecified; E11.65 Type 2 diabetes mellitus with hyperglycemia; T81.30XA Disruption of wound, unspecified, initial encounter; K70.30 Alcoholic cirrhosis of liver without ascites; E83.42 Hypomagnesemia; E87.1 Hypo-osmolality and hyponatremia; E87.4 Mixed disorder of acid-base balance; K76.0 Fatty (change of) liver, not elsewhere classified; E87.6 Hypokalemia; E87.8 Other disorders of electrolyte and fluid balance, not elsewhere classified; F12.10 Cannabis abuse, uncomplicated; R94.31 Abnormal electrocardiogram [ECG] [EKG]; F41.9 Anxiety disorder, unspecified; F17.200 Nicotine dependence, unspecified, uncomplicated; F32.A Depression, unspecified; I10 Essential (primary) hypertension; I71.43 Infrarenal abdominal aortic aneurysm, without rupture; Z75.1 Person awaiting admission to adequate facility elsewhere; K42.9 Umbilical hernia without obstruction or gangrene; R74.01 Elevation of levels of liver transaminase levels; M54.2 Cervicalgia; K08.409 Partial loss of teeth, unspecified cause, unspecified class; K50.90 Crohn's disease, unspecified, without complications; R79.1 Abnormal coagulation profile; S61.512A Laceration without foreign body of left wrist, initial encounter; W19.XXXA Unspecified fall, initial encounter; Z79.899 Other long term (current) drug therapy; Z28.21 Immunization not carried out because of patient refusal; Z28.310 Unvaccinated for COVID-19
CPT/HCPCS: 12005; 36410; 36415; 70450; 72125; 74177; 76937; 80048; 80053; 80143; 80179; 80202; 80306; 80320; 81001; 82075; 82140; 83036; 83735; 84100; 85025; 85027; 85610; 85730; 87635; 90715; 96365; 96366; 96372; 96375; 96376; 99285

== ENCOUNTER 2024-06-03 14:17 | Inpatient (IN) | payer MEDICARE ==
[2024-06-03] MEDS ORDERED: LORazepam 1 MG TAB PO PRN (14:57)
[2024-06-03] MEDS ORDERED: ACETAMINOPHEN TAB 325 MG TAB PO PRN (14:57)
[2024-06-03] MEDS ORDERED: MAGNESIUM HYDROXIDE 2,400 MG/30 ML CUP PO PRN (14:57)
[2024-06-03] MEDS ORDERED: MAG HYDROX/AL HYDROX/SIMETH 355 ML BOTTLE PO PRN (14:57)
[2024-06-03] MEDS ORDERED: LORazepam 2 MG/ML INJ IM PRN (14:57)
[2024-06-03] MEDS ORDERED: ONDANSETRON 4 MG TAB PO PRN (15:05)
[2024-06-03] MEDS: MUPIROCIN 2% OINT 22 GM TUBE TOPICAL SCH (21:19)
[2024-06-03] MEDS: LACTULOSE 20 GM/30 ML CUP PO SCH (21:19)
[2024-06-03] MEDS: INSULIN ASPART (NovoLOG) 100 UNIT/ML VIAL SQ SCH (21:19)
[2024-06-03] MEDS: metFORMIN 500 MG TAB PO SCH (21:20)
[2024-06-03] MEDS: glipiZIDE 5 MG TAB PO SCH (22:28)
[2024-06-03] MEDS: DOXYCYCLINE 100 MG CAP PO SCH (22:28)
[2024-06-03 23:35] VITALS: BP 142/73; PULSE 99; RESP 18; TEMP 98.9
[2024-06-04 07:41] LABS: Glucose,Whole Blood 145 mg/dL (70-110)
[2024-06-04] MEDS: FOLIC ACID 1 MG TAB PO SCH (08:04)
[2024-06-04] MEDS: MULTIVITAMINS, THERA 1 EACH TAB PO SCH (08:04)
[2024-06-04] MEDS: amLODIPine 5 MG TAB PO SCH (08:04)
[2024-06-04] MEDS: THIAMINE 100 MG TAB PO SCH (08:04)
[2024-06-04] MEDS: NICOTINE 14MG/24HR PATCH TRANSDERM SCH (08:07)
[2024-06-04] MEDS: SERTRALINE 50 MG TAB PO SCH (12:33)
[2024-06-04 12:41] LABS: Glucose,Whole Blood 82 mg/dL (70-110)
--- NOTE | 2024-06-04 13:05 | P.HP ---
Psychiatric H&P - . H&P Date: 06/04/24 History & Physical: Allergies Allergy/AdvReac Type Severity Reaction Status Date / Time No Known Allergies Allergy Verified 06/03/24 14:40 Vital Signs Temp 98.9 F 06/03/24 23:18 Pulse 99 06/03/24 23:18 Resp 18 06/03/24 23:18 BP 142/73 06/03/24 23:18 Pulse Ox 96 06/03/24 23:18 FiO2 Intake & Output 06/03/24 06/04/24 06/04/24 18:59 06:59 18:59 Weight 116.8 kg 116.176 kg Laboratory Last Values POC Glucose (mg/dL) 82 mg/dL (70-110) 06/04/24 12:41 POC Glu Chocolate Finisher Operator ID Marlon Abebe 06/04/24 12:41 06/04/24 12:56 IDENTIFYING DATA: Patient is a 48-year-old male, living alone CHIEF COMPLAINT: Suicide attempt HPI: Patient presented to the hospital with self-inflicted lacerations. Patient seen as a consult while admitted on the medical floor with HPI as follows, "Patient has a history of alcohol use however alcohol was negative in the ED. Imaging of the abdomen revealed hepatomegaly with marked diffuse fatty liver infiltration of the liver. Patient reportedly was drinking 1-2 1/5s of hard liquor per day. LFTs revealed AST of 162 and ALT of 54, alk phos 198. EKG revealed prolonged QTc at 631. Patient was placed on CIWA protocol given his withdrawal symptoms. Patient seen and evaluated in his room with sitter at bedside. He states not doing well. He reports cutting his arm as a suicide attempt given multiple stressors. Patient was pretty guarded and vague with his responses however he was able to pinpoint being a failure to his kids as the biggest stressor and his alcohol use a close second. Staff has noted that patient recently lost his son back in December. He reports drinking up to 2 1/5 of hard liquor per day and is interested in rehab. He reports cravings for alcohol and CIWA's have been elevated. Patient reports suicidal ideations with a plan to use a knife. At this time patient denies any homical ideations, intent or plan. Patient denies any auditory, visual hallucinations and denies any paranoia or delusions. Patients admits to using alcohol, cannabis and nicotine." Patient seen and evaluated in his room with one-to-one at bedside and was agreeable with speaking to mortgage loan underwriter in his room. Patient reportedly is extremely weak and requires at least 2 person assist with getting out of bed and has had severe weakness, incontinence with mild confusion. Patient notably recently had a mid line IV access inserted yesterday however this was removed and he was started on oral antibiotics given his cellulitis. Patient yesterday had a critical bilirubin at 15 with macrocytic anemia. Patient was A&Ox2-3 date. He states his pain is better however he has been having loose stools which is likely related to the lactulose given his elevated ammonia. He no longer endorses suicidal ideations however does report severe depression, rated 7/10 in severity. He reports issues with sleep ongoing. Patient denies any homicidal ideations intent or plan. At this time patient denies any auditory or visual hallucinations. Patient denies any flight of ideas racing thoughts and increased in goal directed behavior. PAST PSYCHIATRIC HISTORY: Patient has a history of depression, anxiety. Patient denies being on any psychiatric medications. Patient denies any previous psychiatric hospitalizations. Patient denies any psychiatric outpatient follow- up. Patient denies any history of suicide attempts in the past. PMH: as per ER note ALLERGIES: as per EMR SUBSTANCE USE HISTORY: As per HPI FAMILY PSYCHIATRIC/SUBSTANCE USE HISTORY: Patient reports mental illness on both sides of the family and that his brother used to abuse cocaine SOCIAL HISTORY: Patient lives alone and has 3 children. He is single, recently laid off and he completed school up to the 12th grade MENTAL STATUS EXAM: General Appearance: Patient appears to be stated age is fatigued directable, and attempts to cooperate. Patient appears to have poor hygiene and grooming. Behavior: Patient is laying without any agitated behavior. Speech: Patient's speech is low volume, slowed rate Mood/Affect: Patient reports their mood is depressed, affect is congruent and constricted. Suicidality/Homicidality: Patient denies having any homicidal ideation intent or plan. Denies any suicidal ideations intent or plan Perceptions: Patient denies any visual hallucinations and denies any auditory hallucinations Though content/process: There is no evidence of any delusional thought content and thought process is linear. Memory and concentration: AOX3, grossly intact for the purposes of this session. Can spell "WORLD" backwards Judgment and insight: Poor STRENGTHS/WEAKNESSES: strength is that patient is resilient and has family support. Weakness is that patient has poor judgment and is impulsive INTELLECT: Average IMPRESSIONS: Suicide attempt via cutting Major depressive disorder Alcohol use disorder, severe Cannabis use disorder Nicotine dependence PLAN: -Patient is admitted under voluntary status to MHU for stabilization of psychiatric symptoms and safety. Patient has signed adult voluntary form and medication consent and is placed in patient's chart. -Medications : Start Zoloft 50 mg daily for depression -Ativan and Haldol PRN for agitation/aggression -Started thiamine, MVM for etoh use -Patient was counselled on substance abuse and desired to cut back on use-Will offer patient subtance use rehab -Patient was informed of the risks, benefits and side effects of the medication and patient verbally consented to taking the medications. Patient signed med consent form and was placed in chart. -Internal Medicine consult to perform medical evaluation and physical. -NRT -nicotine patch -SW on board for discharge planning. Encourage patient to participate in groups to work on coping skills. Given patient's medical concerns, he will be transferred to the medical unit with psychiatry consult for close follow-up 06/04/24 13:02
--- NOTE | 2024-06-04 13:13 | P.DS ---
Providers Date of admission: 06/03/24 14:19 Expected date of discharge: 06/04/24 Attending physician: Rosie Palafox MD Consults: 06/03/24 14:57 Consult Physician Routine Consulting Provider: Albert Shrestha Consult Reason/Comments: Medical H&P Do you want consulting provider notified?: Yes Primary care physician: Darell Stiles MD - Discharge Diagnosis(es) (1) Attempted suicide Current Visit: Yes Status: Acute Priority: High (2) Major depressive disorder Current Visit: Yes Status: Acute Priority: High (3) Alcohol use disorder, severe, dependence Current Visit: Yes Status: Acute Priority: High (4) Nicotine dependence Current Visit: Yes Status: Acute Priority: Low (5) Cannabis use disorder Current Visit: Yes Status: Acute Hospital Course: Admission HPI: Admission note was completed by leader writer "Patient presented to the hospital with self-inflicted lacerations. Patient seen as a consult while admitted on the medical floor with HPI as follows, "Patient has a history of alcohol use however alcohol was negative in the ED. Imaging of the abdomen revealed hepatomegaly with marked diffuse fatty liver infiltration of the liver. Patient reportedly was drinking 1-2 1/5s of hard liquor per day. LFTs revealed AST of 162 and ALT of 54, alk phos 198. EKG revealed prolonged QTc at 631. Patient was placed on CIWA protocol given his withdrawal symptoms. Patient seen and evaluated in his room with sitter at bedside. He states not doing well. He reports cutting his arm as a suicide attempt given multiple stressors. Patient was pretty guarded and vague with his responses however he was able to pinpoint being a failure to his kids as the biggest stressor and his alcohol use a close second. Staff has noted that patient recently lost his son back in December. He reports drinking up to 2 1/5 of hard liquor per day and is interested in rehab. He reports cravings for alcohol and CIWA's have been elevated. Patient reports suicidal ideations with a plan to use a knife. At this time patient denies any homical ideations, intent or plan. Patient denies any auditory, visual hallucinations and denies any paranoia or delusions. Patients admits to using alcohol, cannabis and nicotine." Patient seen and evaluated in his room with one-to-one at bedside and was agreeable with speaking to leader writer in his room. Patient reportedly is extremely weak and requires at least 2 person assist with getting out of bed and has had severe weakness, incontinence with mild confusion. Patient notably recently had a mid line IV access inserted yesterday however this was removed and he was started on oral antibiotics given his cellulitis. Patient yesterday had a critical bilirubin at 15 with macrocytic anemia. Patient was A&Ox2-3 date. He states his pain is better however he has been having loose stools which is likely related to the lactulose given his elevated ammonia. He no longer endorses suicidal ideations however does report severe depression, rated 7/10 in severity. He reports issues with sleep ongoing. Patient denies any homicidal ideations intent or plan. At this time patient denies any auditory or visual hallucinations. Patient denies any flight of ideas racing thoughts and increased in goal directed behavior." Hospital course: Upon admission to the unit patient was directable and agreeable to commence treatment and signed adult voluntary form. Patient notably was extremely weak and required at least 2 person assist with ambulation. Patient suffered a fall given the extreme weakness and has been incontinent with mild confusion. Patient recently had a critical bilirubin at 15 and was on board to start IV antibiotics via midline however this was removed the same day it was placed so that patient can be transferred to the inpatient psych unit. Given these concerns, it was determined that patient was more appropriate for the medical floor with a psychiatry consult. Patient was started on Zoloft 50 mg daily and this will be followed during his time on the medical floor. He will be transferred to medical floor with psychiatry following. Mental status exam: General Appearance: Patient appears to be stated age is fatigued but cooperative. Patient is in no acute distress and has improved hygiene and grooming Behavior: Patient is calmly laying without any agitated behavior. Speech: Patient's speech is fluent and nonpressured. Mood/Affect: Patient reports their mood is "depressed", affect is congruent and constricted Suicidality/Homicidality: Patient denies having any suicidal or homicidal ideation intent or plan. Perceptions: Patient denies any auditory or visual hallucinations. Though content/process: There is no evidence of any delusional thought content and thought process is linear. Memory and concentration: AOX2-3, grossly intact for the purposes of this session. Can spell "WORLD" backwards correctly. Judgment and insight: Poor Impression: Suicide attempt via cutting Major depressive disorder Alcohol use disorder, severe Nicotine dependence Cannabis use disorder Plan: -Continue with discharge today as patient has improved and stabilized psychiatrically and is not currently an imminent threat to themself and/or others. Patient will remain at chronically elevated risk for harm to self and/or others due to their impulsivity and substance abuse. -Continue medications: zoloft 50 mg daily -Patient to be transferred to the medical floor Abnormal Labs 06/04/24 07:37 POC Glucose (mg/dL) 145 H Vital Signs Temp 98.9 F 06/03/24 23:18 Pulse 99 06/03/24 23:18 Resp 18 06/03/24 23:18 BP 142/73 06/03/24 23:18 Pulse Ox 96 06/03/24 23:18 FiO2 Intake & Output 06/03/24 06/04/24 06/04/24 18:59 06:59 18:59 Weight 116.8 kg 116.176 kg Patient Condition at Discharge: Serious Plan - Discharge Summary Discharge Rx Participant: Yes New Discharge Prescriptions: No Action Mupirocin 2% Oint [Bactroban 2% Oint] 1 applic TOPICAL TID each Lactulose [Cephulac] 30 gm PO TID ml Folic Acid 1 mg PO DAILY tab Nicotine 21Mg/24Hr Patch [Habitrol] 1 patch TRANSDERM DAILY patch Thiamine [Vitamin B-1] 100 mg PO DAILY tab glipiZIDE 5 mg PO BID #20 tablet Multivitamins, Thera [Multivitamin (formulary)] 1 tab PO DAILY Acetaminophen Tab [Tylenol] 650 mg PO Q6HR PRN tab PRN Reason: Fever And/ Or Pain Doxycycline [Vibramycin] 100 mg PO BID 10 Days #20 capsule metFORMIN HCL 500 mg PO BID #20 tablet Discharge Medication List Acetaminophen Tab [Tylenol] 650 mg PO Q6HR PRN tab 06/03/24 [Rx] Doxycycline [Vibramycin] 100 mg PO BID 10 Days #20 capsule 06/03/24 [Rx] Folic Acid 1 mg PO DAILY tab 06/03/24 [Rx] Lactulose [Cephulac] 30 gm PO TID ml 06/03/24 [Rx] Multivitamins, Thera [Multivitamin (formulary)] 1 tab PO DAILY 06/03/24 [H istory] Mupirocin 2% Oint [Bactroban 2% Oint] 1 applic TOPICAL TID each 06/03/24 [Rx] Nicotine 21Mg/24Hr Patch [Habitrol] 1 patch TRANSDERM DAILY patch 06/03/24 [Rx] Thiamine [Vitamin B-1] 100 mg PO DAILY tab 06/03/24 [Rx] glipiZIDE 5 mg PO BID #20 tablet 06/03/24 [Rx] metFORMIN HCL 500 mg PO BID #20 tablet 06/03/24 [Rx]
== END 2024-06-04 14:27 | disposition short-term general hospital, planned readmission (82) | DRG 351 ==
LOC: 3MHU 14:19
PROVIDERS: ADMIT Psychiatry & Neurology Psychiatry; ATTEND Psychiatry & Neurology Psychiatry
DX: S41.119A Laceration without foreign body of unspecified upper arm, initial encounter (principal); R16.0 Hepatomegaly, not elsewhere classified; K76.0 Fatty (change of) liver, not elsewhere classified; F10.239 Alcohol dependence with withdrawal, unspecified; X78.9XXA Intentional self-harm by unspecified sharp object, initial encounter; D53.9 Nutritional anemia, unspecified; F32.9 Major depressive disorder, single episode, unspecified; R32 Unspecified urinary incontinence; L03.90 Cellulitis, unspecified; F41.9 Anxiety disorder, unspecified; F17.200 Nicotine dependence, unspecified, uncomplicated; W19.XXXA Unspecified fall, initial encounter; Z63.8 Other specified problems related to primary support group; Z81.8 Family history of other mental and behavioral disorders; Z81.3 Family history of other psychoactive substance abuse and dependence; Z56.0 Unemployment, unspecified; Z79.899 Other long term (current) drug therapy

== ENCOUNTER 2024-06-04 13:43 | Inpatient (IN) | payer MEDICARE ==
[2024-06-04] MEDS ORDERED: NALOXONE 0.4 MG/ML 1 ML VIAL IV PRN (15:00)
[2024-06-04] MEDS ORDERED: DEXTROSE 50% SYRINGE 50 ML IVP PRN ×2 (15:04)
[2024-06-04 16:25] LABS: Anisocytosis Slight; Basophils # (A) 0.1 k/uL (0-0.2); Basophils % (A) 1 %; Eosinophils # (A) 0.1 k/uL (0-0.7); Eosinophils % (A) 1 %; HCT 35.4 % (39.0-53.0); Hypochromasia Marked; Lymphocytes # (A) 2.1 k/uL (1.0-4.8); Lymphocytes % (A) 23 %; MCH 38.4 pg (25.0-35.0); MCHC 31.1 g/dL (31.0-37.0); MCV 123.4 fL (80.0-100.0); Macrocytosis Marked; Mean Platelet Volume 8.1; Monocytes # (A) 0.5 k/uL (0-1.0); Monocytes % (A) 5 %; Neutrophils # (A) 6.1 k/uL (1.3-7.7); Neutrophils % (A) 67 %; Platelet Count 337 k/uL (150-450); RBC 2.86 m/uL (4.30-5.90); RDW 16.6 % (11.5-15.5); WBC 9.2 k/uL (3.8-10.6)
[2024-06-04] MEDS: LACTULOSE 20 GM/30 ML CUP PO SCH (16:25)
--- NOTE | 2024-06-04 16:25 | P.HPIM ---
History of Present Illness H&P Date: 06/04/24 Patient is a 48-year-old male with known alcoholic cirrhosis, HTN, and nicotine dependence who presented for psychiatric evaluation due to self-inflicted lacerations to left forearm initially on 05/22/2024. Underwent repair in the emergency department with a total of 16 sutures. Initial vital signs were within normal limits. Initial laboratory analysis was remarkable for hemoglobin 11.3, potassium of 2.6, total bilirubin 11.2, AST of 248, and ALT of 79. Underwent CT abdomen and pelvis which showed hepatomegaly with marked fatty infiltration of the liver but no biliary dilatation or ascites. Of note there was an infrarenal abdominal aortic aneurysm extending into the iliac branches and a fat-containing umbilical hernia. Had high CIWA score on arrival was placed on scheduled Librium and continued on IV Ativan as needed. Patient now out of alcohol withdrawal. Librium discontinued due to cirrhosis. Noted to have worsening cellulitis at the wrist. General surgery was consulted. Patient started on IV antibiotics. General surgery removed 1 suture, will be taking other sutures in 1 week. Patient was discharged on oral antibiotics to inpatient psychiatry. Patient was started on Zoloft. Continue to have generalized weakness, needs further medical optimization. Will likely need subacute rehab. Transferred back to medicine floor. Denies any new complaints. Pertinent positives and negatives as discussed in HPI, a complete review of systems was performed and all other systems are negative. Patient seen and examined at bedside. Vital signs reviewed General: nontoxic, no distress, appears at stated age Derm: warm, dry, jaundice, left wrist laceration with no purulence, minimal erythema wound dehisced to other lacerations with sutures in place, minimal erythema Head: atraumatic, normocephalic, symmetric Eyes: EOMI, no lid lag, scleral icterus, pupils equal round reactive to light ENT: Nose and ears atraumatic Neck: No thyromegaly, supple Mouth: no lip lesion, mucus membranes moist Cardiovascular: S1S2 reg, no murmur, no edema Lungs: clear to auscultation bilateral, no rhonchi, no rales, no wheeze, no accessory muscle use Abdominal: soft, distended, nontender to palpation, no guarding, no appreciable organomegaly Ext: no gross muscle atrophy, muscle strength muscle strength 5 out of 5 in all 4 extremities, no contractures Neuro: CN II-XII grossly intact Psych: Alert, oriented, appropriate affect Assessment/Plan: Suicidal ideation with self-inflicted left arm lacerations status post repair in the ER Wound dehiscence of the left wrist Left wrist infected self inflicted woud with surrounding cellulitis -Continue oral doxycycline 100 mg twice daily -CBC pending -Psychiatry consulted, suicide precautions, sitter at bedside -Continue Zoloft 50 mg daily -General Surgery consult if new purulence, sutures to be removed within 1 week. Alcohol dependence Alcohol withdrawal, resolved Alcoholic cirrhosis Toxic metabolic encephalopathy-resolved -CMP pending -Thiamine 100 mg daily -Needs outpatient follow-up with GI -Lactulose 30 g 3 times daily Hyperglycemia, newly diagnosed diabetes mellitus type 2 -Subcu insulin sliding scale ACHS, monitor for hypoglycemia -Hold oral hypoglycemics Nicotine dependence -Continue nicotine patch 21 mg daily Debility Generalized weakness -PT/OT consult The patient is admitted with an anticipated greater than 2 midnight stay as inpatient status for evaluation of generalized weakness. CODE STATUS: Full code DVT prophylaxis: Pending PT INR, SCDs for now Anticipated discharge date: Pending clinical course Anticipated discharge place: Pending clinical course A total of 55 minutes was spent on the care of this complex patient more than 50% of the time was spent in counseling and care coordination. Past Medical History Past Medical History: Hypertension Additional Past Medical History / Comment(s): ETOH, fatty liver, alcoholic liver disease, crohns, colitis, no teeth on top- uses dentures (not with patient) History of Any Multi-Drug Resistant Organisms: None Reported Past Surgical History: No Surgical Hx Reported Past Anesthesia/Blood Transfusion Reactions: No Reported Reaction Additional Past Anesthesia/Blood Transfusion Reaction / Comment(s): na Past Psychological History: Depression Smoking Status: Current every day smoker Past Alcohol Use History: Daily, Heavy Additional Past Alcohol Use History / Comment(s): patibrandee reports he drinks a fifth daily Past Drug Use History: None Reported - Past Family History Father Family Medical History: Myocardial Infarction ([place]) Additional Family Medical History / Comment(s): at 58 from [place] Mother Additional Family Medical History / Comment(s): hip replacement/ problems walking. Brother(s) Additional Family Medical History / Comment(s): 2x back surgeries Medications and Allergies Home Medications Medication Instructions Recorded Confirmed Type Acetaminophen Tab [Tylenol] 650 mg PO Q6HR PRN tab 06/03/24 06/03/24 Rx Doxycycline [Vibramycin] 100 mg PO BID 10 Days #20 capsule 06/03/24 06/03/24 Rx Folic Acid 1 mg PO DAILY tab 06/03/24 06/03/24 Rx Lactulose [Cephulac] 30 gm PO TID ml 06/03/24 06/03/24 Rx Multivitamins, Thera [Multivitamin 1 tab PO DAILY 06/03/24 06/03/24 History (formulary)] Mupirocin 2% Oint [Bactroban 2% 1 applic TOPICAL TID each 06/03/24 06/03/24 Rx Oint] Nicotine 21Mg/24Hr Patch [Habitrol] 1 patch TRANSDERM DAILY patch 06/03/24 06/03/24 Rx Thiamine [Vitamin B-1] 100 mg PO DAILY tab 06/03/24 06/03/24 Rx glipiZIDE 5 mg PO BID #20 tablet 06/03/24 06/03/24 Rx metFORMIN HCL 500 mg PO BID #20 tablet 06/03/24 06/03/24 Rx Allergies Allergy/AdvReac Type Severity Reaction Status Date / Time No Known Allergies Allergy Verified 06/03/24 14:40 Physical Exam Vitals: Vital Signs Temp Pulse Resp BP Pulse Ox 06/04/24 14:36 97.6 F 94 18 123/77 99 Intake and Output 06/04/24 06/04/24 06/04/24 06:59 14:59 22:59 Other: Weight 116 kg Thrombosis Risk Factor Assmnt - Choose All That Apply Each Factor Represents 1 point: Age 41-60 years, Obesity (BMI >25) Thrombosis Risk Factor Assessment Total Risk Factor Score: 2 Thrombosis Risk Factor Assessment Level: Low Risk
[2024-06-04] MEDS: MUPIROCIN 2% OINT 22 GM TUBE TOPICAL SCH (16:26)
[2024-06-04 16:29] LABS: INR 1.4 (<1.2); Prothrombin Time 14.2 sec (10.0-12.5)
[2024-06-04 16:38] LABS: ALT 63 U/L (4-49); AST 167 U/L (17-59); African American GFR (CKD) 53 (>60 ml/min/1.73 sqM); Albumin 3.3 g/dL (3.5-5.0); Alkaline Phosphatase 192 U/L (38-126); Anion Gap 11 mmol/L; Blood Urea Nitrogen 9 mg/dL (9-20); Calcium 9.1 mg/dL (8.4-10.2); Carbon Dioxide 17 mmol/L (22-30); Chloride 113 mmol/L (98-107); Globulin 3.3 g/dL; Glucose 88 mg/dL (74-99); Magnesium 1.6 mg/dL (1.6-2.3); Non-African American GFR(CKD) 46 (>60 ml/min/1.73 sqM); Potassium 3.7 mmol/L (3.5-5.1); Sodium 141 mmol/L (137-145); Total Bilirubin 14.2 mg/dL (0.2-1.3); Total Protein 6.6 g/dL (6.3-8.2)
[2024-06-04 17:38] LABS: Glucose,Whole Blood 97 mg/dL (70-110)
[2024-06-04] MEDS: INSULIN ASPART (NovoLOG) 100 UNIT/ML VIAL SQ SCH (17:56)
[2024-06-04] MEDS ORDERED: ZINC OXIDE PASTE (Z-GUARD) 1 APPLIC TOPICAL PRN (19:35)
[2024-06-04] MEDS: DOXYCYCLINE 100 MG CAP PO SCH (20:42)
[2024-06-04 20:50] LABS: Glucose,Whole Blood 135 mg/dL (70-110)
--- NOTE | 2024-06-04 20:56 | US ---
EXAMINATION TYPE: US renals and bladder DATE OF EXAM: 06/04/2024 COMPARISON: 05/26/24 CLINICAL INDICATION: Male, 48 years old with history of DRAKE; DRAKE, patient unable to move positions/ h old breath. Patient seems out of it TECHNIQUE: Grayscale imaging of the bilateral kidneys and urinary bladder: FINDINGS: EXAM MEASUREMENTS: Right Kidney: 11.5 x 6.4 x 5.8 cm Left Kidney: 11.2 x 6.1 x 6.0 cm Slightly limited due to patient body habitus Right Kidney: wnl as best seen Left Kidney: wnl as best seen Bladder: undistended, small amount of free fluid seen anterior/ superior to the bladder Bilateral Jets seen: attempted, not visualized today IMPRESSION: No evidence for obstructive uropathy. Refined Syrup Operator suggests free fluid anterior to the urinary bladder not definitively seen on prior CT. If this concern for new acute process in the abdomen/pelvis consider CT follow-up. [facility], , 06/04/2024 8:53 PM
[2024-06-05 02:31] LABS: Appearance,Urine Cloudy (Clear); Bilirubin,Urine 2+ (Negative); Blood,Urine Negative (Negative); Cellular Casts,Urine 6 /lpf (0); Color,Urine Dark Brown; Glucose,Urine (UA) Negative (Negative); Granular Casts,Urine 41 /lpf (0); Hyaline Casts,Urine 22 /lpf (0-2); Ketones,Urine Negative (Negative); Leukocyte Esterase,Urine Negative (Negative); Mucus,Urine Occasional /hpf; Nitrite,Urine Negative (Negative); PH, Urine 5.5 (5.0-8.0); Protein,Urine Trace (Negative); RBC,Urine 1 /hpf (0-5); Renal Epithelial Cells,Urine <1 /hpf (0); Specific Gravity,Urine 1.019 (1.001-1.035); Squamous Epithelial Cell,Urine 1 /hpf (0-4); WBC,Urine 2 /hpf (0-5)
[2024-06-05 07:12] LABS: Glucose,Whole Blood 106 mg/dL (70-110)
[2024-06-05 08:42] LABS: Basophils # (A) 0.09 X 10*3/uL (0.00-0.10); Eosinophils # (A) 0.17 X 10*3/uL (0.04-0.35); HGB 9.2 g/dL (13.0-17.0); Lymphocytes # (A) 2.21 X 10*3/uL (0.90-5.00); Lymphocytes % (A) 25.4 %; MCH 38.7 pg (27.0-32.0); MCHC 30.7 g/dL (32.0-37.0); MCV 126.1 FL (80.0-97.0); Mean Platelet Volume 11.5 FL (9.5-12.2); Monocytes # (A) 0.63 X 10*3/uL (0.20-1.00); Monocytes % (A) 7.2 %; NRBC Per 100 WBC 0 X 10*3/uL (0.00-0.01); Neutrophils # (A) 5.56 X 10*3/uL (1.80-7.70); Neutrophils % (A) 63.8 %; Platelet Count 265 X 10*3/uL (140-440); RBC 2.38 X 10*6/uL (4.40-5.60); RDW 16.6 % (11.5-14.5); WBC 8.71 X 10*3/uL (4.50-10.00)
[2024-06-05 08:52] LABS: Magnesium 1.5 mg/dL (1.5-2.4)
[2024-06-05 09:24] LABS: ALT 53 U/L (10-49); AST 139 U/L (14-35); Albumin 2.7 g/dL (3.8-4.9); Albumin/Globulin Ratio 1.35 Ratio (1.60-3.17); Alkaline Phosphatase 170 U/L (41-126); BUN/Creat Ratio 6.06 Ratio (12.00-20.00); Blood Urea Nitrogen 10.9 mg/dL (9.0-27.0); Calcium 8.5 mg/dL (8.7-10.3); Carbon Dioxide 17.7 mmol/L (21.6-31.8); Chloride 110 mmol/L (96-109); Glucose 79 mg/dL (70-110); Potassium 3.5 mmol/L (3.5-5.5); Sodium 142 mmol/L (135-145); Total Bilirubin 10.9 mg/dL (0.3-1.2); Total Protein 4.7 g/dL (6.2-8.2)
[2024-06-05] MEDS: NICOTINE 21MG/24HR PATCH TRANSDERM SCH (09:31)
[2024-06-05] MEDS: FOLIC ACID 1 MG TAB PO SCH (09:31)
[2024-06-05] MEDS: MULTIVITAMINS, THERA 1 EACH TAB PO SCH (09:31)
[2024-06-05] MEDS: THIAMINE 100 MG TAB PO SCH (09:31)
[2024-06-05] MEDS: SERTRALINE 50 MG TAB PO SCH (09:31)
--- NOTE | 2024-06-05 10:42 | P.NPCON ---
History of Present Illness - Reason for Consult acute renal failure - History of Present Illness Reason for consultation: Acute kidney injury History of present illness: Patient is a 48-year-old male seen in renal consultation for acute kidney injury. Patient's baseline creatinine is in the range of 0.5-0.7 and was elevated at 1.72 yesterday and is 1.8 today. Patient has history of alcohol induced liver cirrhosis. Patient was admitted initially in May 22- due to self-inflicted lacerations to the left forearm. Patient had sutures placed. At that time CT of the abdomen and pelvis showed hepatomegaly with fatty infiltration of the liver. He was seen by surgery for cellulitis of the left wrist and was given IV antibiotics. Patient subsequently went to inpatient psychiatry but was crawling on the floors and was subsequently transferred back to medical floor. Patient currently denies any suicidal ideation. Hemodynamically stable. Currently receiving doxycycline. Patient does have history of diabetes. I do not see any NSAIDs on his home medication list. Denies history of coronary artery disease. Currently has an external catheter. Nonoliguric. Denies gross hematuria or dysuria. Vital signs are stable. General: No acute distress. HEENT: Head exam is unremarkable. LUNGS: No audible rhonchi or wheezes. HEART: Rate and Rhythm are regular. ABDOMEN: Obese. Nontender. EXTREMITITES: 1+ edema. Past Medical History Past Medical History: Hypertension Additional Past Medical History / Comment(s): ETOH, fatty liver, alcoholic liver disease, crohns, colitis, no teeth on top- uses dentures (not with patient) History of Any Multi-Drug Resistant Organisms: None Reported Past Surgical History: No Surgical Hx Reported Past Anesthesia/Blood Transfusion Reactions: No Reported Reaction Additional Past Anesthesia/Blood Transfusion Reaction / Comment(s): na Past Psychological History: Depression Smoking Status: Current every day smoker Past Alcohol Use History: Daily, Heavy Additional Past Alcohol Use History / Comment(s): patien reports he drinks a fifth daily Past Drug Use History: None Reported - Past Family History Father Family Medical History: Myocardial Infarction ([place]) Additional Family Medical History / Comment(s): at 58 from [place] Mother Additional Family Medical History / Comment(s): hip replacement/ problems walking. Brother(s) Additional Family Medical History / Comment(s): 2x back surgeries Medications and Allergies Home Medications Medication Instructions Recorded Confirmed Type Acetaminophen Tab [Tylenol] 650 mg PO Q6HR PRN tab 06/03/24 06/04/24 Rx Doxycycline [Vibramycin] 100 mg PO BID 10 Days #20 capsule 06/03/24 06/04/24 Rx Folic Acid 1 mg PO DAILY tab 06/03/24 06/04/24 Rx Lactulose [Cephulac] 30 gm PO TID ml 06/03/24 06/04/24 Rx Multivitamins, Thera [Multivitamin 1 tab PO DAILY 06/03/24 06/04/24 History (formulary)] Mupirocin 2% Oint [Bactroban 2% 1 applic TOPICAL TID each 06/03/24 06/04/24 Rx Oint] Nicotine 21Mg/24Hr Patch [Habitrol] 1 patch TRANSDERM DAILY patch 06/03/24 06/04/24 Rx Thiamine [Vitamin B-1] 100 mg PO DAILY tab 06/03/24 06/04/24 Rx glipiZIDE 5 mg PO BID #20 tablet 06/03/24 06/04/24 Rx metFORMIN HCL 500 mg PO BID #20 tablet 06/03/24 06/04/24 Rx Allergies Allergy/AdvReac Type Severity Reaction Status Date / Time No Known Allergies Allergy Verified 06/03/24 14:40 Physical Exam Vitals: Vital Signs Temp Pulse Resp BP Pulse Ox 06/05/24 07:11 98.0 F 83 16 106/65 97 06/05/24 01:29 98.1 F 90 17 112/62 100 06/04/24 20:00 16 06/04/24 19:37 98.7 F 91 17 120/72 97 06/04/24 14:36 97.6 F 94 18 123/77 99 Intake and Output 06/04/24 06/05/24 06/05/24 22:59 06:59 14:59 Intake Total 540 118 Output Total 200 Balance 540 -200 118 Intake: Oral 540 118 Output: Urine 200 Other: Voiding Method Bedside Commode Urinal # Bowel Movements 1 Results - Lab Results Most recent lab results Calcium 8.5 mg/dL (8.7-10.3) L 06/05/24 04:52 Magnesium 1.5 mg/dL (1.5-2.4) 06/05/24 04:52 06/05/24 04:52 06/05/24 04:52 Assessment and Plan Plan: Assessment: 1. Acute kidney injury secondary to ATN secondary to hepatorenal syndrome. CAT scan from May 26, 2024 showed no evidence of hydronephrosis. Ultrasound from this admission showed no hydronephrosis. UA fairly benign. Baseline creatinine 0.5-0.7. Creatinine 1.8 today. 2. Alcohol induced liver cirrhosis. 3. Metabolic acidosis secondary to acute kidney injury. 4. Diabetes mellitus. 5. Anemia. Rule out iron deficiency. 6. Volume overload. Plan: Add IV Lasix 40 mg once daily. Check bladder scan to rule out urinary retention. Replace potassium and magnesium. Check urine sodium. Avoid nephrotoxins. Continue to monitor renal function and urine output. Check iron studies. Add oral bicarb. Thank you for the consultation. I will continue to follow the patient with you during his hospital stay.
[2024-06-05] MEDS: FUROSEMIDE 10 MG/ML 4 ML VIAL IV SCH (11:34)
[2024-06-05] MEDS: FUROSEMIDE 40 MG TAB PO SCH (11:37)
[2024-06-05] MEDS: MAGNESIUM OXIDE 400 MG TAB PO SCH (11:37)
[2024-06-05] MEDS: POTASSIUM CHLORIDE ER 20 MEQ TAB.ER PO STA (11:37)
[2024-06-05] MEDS: SODIUM BICARBONATE TAB 650 MG TAB PO SCH (11:37)
[2024-06-05 12:16] LABS: Glucose,Whole Blood 145 mg/dL (70-110)
--- NOTE | 2024-06-05 13:07 | P.CN ---
Psychiatric Consult - . Consult date: 06/05/24 Consult:: 06/05/24 12:55 IDENTIFYING DATA: This patient is a 48-year-old male REASON FOR REFERRAL: Psychiatry was consulted for suicidal thoughts HISTORY OF PRESENT ILLNESS: Patient was a transfer back to medical floor given his medical comorbidities, including requiring 2 person assist with weakness and incontinence. Nephrology consulted due to DRAKE and imaging was within normal limits. PT consulted for weakness. Patient seen and evaluated in his room with sitter at bedside. Patient notably appears more bright in affect, less lethargic and more communicative. He states feeling "great" today, specifically stating he feels better. He reports sleeping okay and he rates his depression a 5/10 in severity. He vehemently denies any suicidal thoughts. He denied any side effects from the zoloft. Patient denies any auditory, visual hallucinations and denies any paranoia or delusions. Talked with case management and they state patient is interested in going to rehab given his substance use and will be provided the numbers to call. PAST PSYCHIATRIC HISTORY: Patient has a a history of depression. Patient denies being on any psychiatric medications. Patient denies any previous psychiatric hospitalizations. Patient denies any psychiatric outpatient follow-up. Patient denies any history of suicide attempts in the past. ALLERGIES: as per EMR. SOCIAL HISTORY: Patient is unemployed and living alone MENTAL STATUS EXAM: General Appearance: Patient appears to be stated age is alert, pleasant, and cooperative. Patient appears to have fair hygiene and grooming wearing hospital gown with fair eye contact. Behavior: Patient is calmly lying in bed without any agitated behavior. Speech: Patient's speech is fluent and nonpressured. Mood/Affect: Patient reports their mood is "great", affect is congruent Suicidality/Homicidality: Patient denies having any suicidal or homicidal ideation intent or plan. Perceptions: Patient denies any visual hallucinations and denies any auditory hallucinations Though content/process: There is no evidence of any delusional thought content and thought process is linear. Memory and concentration: AOX3, grossly intact for the purposes of this session. Can spell "WORLD" backwards Judgment and insight: Poor IMPRESSIONS: Suicide attempt via cutting Major depressive disorder Alcohol use disorder, severe Cannabis use disorder Nicotine dependence PLAN: -At this time patient DOES NOT meet criteria for inpatient psychiatric admission. -Would recommend the following medication changes/additions: Increase Zoloft to 100 mg daily tomorrow for depression -Can discontinue 1:1 sitter at this time as patient is not currently an imminent threat to themselves -oil field worker to provide patient with outpatient mental health/psychiatry resources for appropriate follow up upon discharge -oil field worker to provide patient substance use treatment resources including AA/NA meetings in the community. -oil field worker to provide patient with access line number to call for inpatient substance rehab -Communicated plan to patient's nurse -Will continue to follow along -Please contact with any questions.
--- NOTE | 2024-06-05 13:11 | P.PN ---
Subjective Progress Note Date: 06/05/24 Principal diagnosis: Patient is a 48-year-old male with known alcoholic cirrhosis, HTN, and nicotine dependence who presented for psychiatric evaluation due to self-inflicted lacerations to left forearm initially on 05/22/2024. Underwent repair in the emergency department with a total of 16 sutures. Initial vital signs were within normal limits. Initial laboratory analysis was remarkable for hemoglobin 11.3, potassium of 2.6, total bilirubin 11.2, AST of 248, and ALT of 79. Underwent CT abdomen and pelvis which showed hepatomegaly with marked fatty infiltration of the liver but no biliary dilatation or ascites. Of note there was an infrarenal abdominal aortic aneurysm extending into the iliac branches and a fat-containing umbilical hernia. Had high CIWA score on arrival was placed on scheduled Librium and continued on IV Ativan as needed. Patient now out of alcohol withdrawal. Librium discontinued due to cirrhosis. Noted to have worsening cellulitis at the wrist. General surgery was consulted. Patient started on IV antibiotics. General surgery removed 1 suture, will be taking other sutures in 1 week. Patient was discharged on oral antibiotics to inpatient psychiatry. Patient was started on Zoloft. Continue to have generalized weakness, needs further medical optimization. 06/05: bedside rn had reported psychiatry had taken the patient off SI precautions. Cr this am noted to be 1.8. total bilirubin 10.9. Objective - Vital Signs Vital signs: Vital Signs Temp 97.7 F 06/05/24 12:51 Pulse 80 06/05/24 12:51 Resp 16 06/05/24 12:51 BP 119/73 06/05/24 12:51 Pulse Ox 97 06/05/24 12:51 FiO2 Intake & Output 06/04/24 06/05/24 06/05/24 18:59 06:59 18:59 Intake Total 540 118 Output Total 200 Balance 340 118 Weight 116 kg Intake: Oral 540 118 Output: Urine 200 Other: Voiding Method Bedside Commode Bedside Commode Urinal Urinal # Bowel Movements 4 1 - Exam General: nontoxic, no distress, appears at stated age, male, somewhat confused Derm: warm, dry, jaundiced appearance , left wrist laceration with no purulence, minimal erythema wound dehisced to other lacerations with sutures in place, minimal erythema Head: atraumatic, normocephalic, symmetric Eyes: EOMI, no lid lag, + scleral icterus, pupils equal round reactive to light ENT: Nose and ears atraumatic Neck: No thyromegaly, supple Mouth: no lip lesion, mucus membranes moist Cardiovascular: S1S2 reg, no murmur, no edema Lungs: clear to auscultation bilateral, no rhonchi, no rales, no wheeze, no accessory muscle use Abdominal: soft, distended, nontender to palpation, no guarding, no appreciable organomegaly Ext: no gross muscle atrophy, muscle strength muscle strength 5 out of 5 in all 4 extremities, no contractures Neuro: moving all extremties spontanously Psych: calm and coopperative - Labs CBC & Chem 7: 06/05/24 04:52 06/05/24 04:52 Labs: Abnormal Lab Results - Last 24 Hours (Table) 06/04/24 06/04/24 06/04/24 Range/Units 16:06 16:06 16:06 RBC 2.86 L (4.30-5.90) m/uL Hgb 11.0 L (13.0-17.5) gm/dL Hct 35.4 L (39.0-53.0) % MCV 123.4 H (80.0-100.0) fL MCH 38.4 H (25.0-35.0) pg MCHC (32.0-37.0) g/dL RDW 16.6 H (11.5-15.5) % Immature Gran # (0.00-0.04) X 10*3/uL Macrocytosis Marked A PT 14.2 H (10.0-12.5) sec INR 1.4 H (<1.2) Chloride 113 H (98-107) mmol/L Carbon Dioxide 17 L (22-30) mmol/L Anion Gap (4.00-12.00) mmol/L Creatinine 1.72 H (0.66-1.25) mg/dL Est GFR (CKD-EPI) (>=60) BUN/Creatinine Ratio (12.00-20.00) Ratio POC Glucose (mg/dL) (70-110) mg/dL Calcium (8.7-10.3) mg/dL Total Bilirubin 14.2 H (0.2-1.3) mg/dL AST 167 H (17-59) U/L ALT 63 H (4-49) U/L Alkaline Phosphatase 192 H (38-126) U/L Ammonia (<30) umol/L Total Protein (6.2-8.2) g/dL Albumin 3.3 L (3.5-5.0) g/dL Albumin/Globulin Ratio (1.60-3.17) Ratio Urine Protein (Negative) Urine Bilirubin (Negative) Hyaline Casts (0-2) /lpf Urine Mucus (None) /hpf 06/04/24 06/05/24 06/05/24 Range/Units 20:49 02:00 04:52 RBC 2.38 L (4.30-5.90) m/uL Hgb 9.2 L (13.0-17.5) gm/dL Hct 30.0 L (39.0-53.0) % MCV 126.1 H (80.0-100.0) fL MCH 38.7 H (25.0-35.0) pg MCHC 30.7 L (32.0-37.0) g/dL RDW 16.6 H (11.5-15.5) % Immature Gran # 0.05 H (0.00-0.04) X 10*3/uL Macrocytosis PT (10.0-12.5) sec INR (<1.2) Chloride (98-107) mmol/L Carbon Dioxide (22-30) mmol/L Anion Gap (4.00-12.00) mmol/L Creatinine (0.66-1.25) mg/dL Est GFR (CKD-EPI) (>=60) BUN/Creatinine Ratio (12.00-20.00) Ratio POC Glucose (mg/dL) 135 H (70-110) mg/dL Calcium (8.7-10.3) mg/dL Total Bilirubin (0.2-1.3) mg/dL AST (17-59) U/L ALT (4-49) U/L Alkaline Phosphatase (38-126) U/L Ammonia (<30) umol/L Total Protein (6.2-8.2) g/dL Albumin (3.5-5.0) g/dL Albumin/Globulin Ratio (1.60-3.17) Ratio Urine Protein Trace H (Negative) Urine Bilirubin 2+ H (Negative) Hyaline Casts 22 H (0-2) /lpf Urine Mucus Occasional H (None) /hpf 06/05/24 06/05/24 06/05/24 Range/Units 04:52 10:24 12:14 RBC (4.30-5.90) m/uL Hgb (13.0-17.5) gm/dL Hct (39.0-53.0) % MCV (80.0-100.0) fL MCH (25.0-35.0) pg MCHC (32.0-37.0) g/dL RDW (11.5-15.5) % Immature Gran # (0.00-0.04) X 10*3/uL Macrocytosis PT (10.0-12.5) sec INR (<1.2) Chloride 110 H (98-107) mmol/L Carbon Dioxide 17.7 L (22-30) mmol/L Anion Gap 14.30 H (4.00-12.00) mmol/L Creatinine 1.8 H (0.66-1.25) mg/dL Est GFR (CKD-EPI) 46 L (>=60) BUN/Creatinine Ratio 6.06 L (12.00-20.00) Ratio POC Glucose (mg/dL) 145 H (70-110) mg/dL Calcium 8.5 L (8.7-10.3) mg/dL Total Bilirubin 10.9 H (0.2-1.3) mg/dL AST 139 H (17-59) U/L ALT 53 H (4-49) U/L Alkaline Phosphatase 170 H (38-126) U/L Ammonia 30 H (<30) umol/L Total Protein 4.7 L (6.2-8.2) g/dL Albumin 2.7 L (3.5-5.0) g/dL Albumin/Globulin Ratio 1.35 L (1.60-3.17) Ratio Urine Protein (Negative) Urine Bilirubin (Negative) Hyaline Casts (0-2) /lpf Urine Mucus (None) /hpf Assessment and Plan Assessment: Suicidal ideation with self-inflicted left arm lacerations status post repair in the ER Wound dehiscence of the left wrist Left wrist infected self inflicted woud with surrounding cellulitis the patient reports that his son had in [facility] during the summer due to a VMA -Continue oral doxycycline 100 mg twice daily -Continue Zoloft 50 mg daily -as per my discussion with bedside rn, he has been seen by psychiatry and SI precautions were removed Alcohol dependence Alcohol withdrawal, resolved Alcoholic cirrhosis Toxic metabolic encephalopathy-resolve -Thiamine 100 mg love -Lactulose 30 g 3 times daily -reports was seen by [facility] team earlier this year and was not a candidate for lvier transplant -no evidence of cirrhosis seen on ct imaging last month Hyperglycemia, newly diagnosed diabetes mellitus type 2 -Subcu insulin sliding scale ACHS, monitor for hypoglycemia -Hold oral hypoglycemics Nicotine dependence -Continue nicotine patch 21 mg daily Debility Generalized weakness -PT/OT consult The patient is admitted with an anticipated greater than 2 midnight stay as inpatient status for evaluation of generalized weakness. CODE STATUS: Full code DVT prophylaxis: lovenox Anticipated discharge date: 48-[address]: SNF Time with Patient: Greater than 30
[2024-06-05] MEDS ORDERED: ZINC OXIDE PASTE (Z-GUARD) 1 APPLIC TOPICAL PRN (14:43)
[2024-06-05 15:41] LABS: % Iron Saturation 67.88 (15.00-50.00)
[2024-06-05] MEDS: HEPARIN SODIUM,PORCINE 5,000 UNIT/ML 1 ML VIAL SQ SCH (16:02)
[2024-06-05 17:23] LABS: Glucose,Whole Blood 133 mg/dL (70-110)
[2024-06-05 20:16] LABS: Glucose,Whole Blood 183 mg/dL (70-110)
[2024-06-06 07:23] LABS: Glucose,Whole Blood 127 mg/dL (70-110)
[2024-06-06 09:22] LABS: Magnesium 1.5 mg/dL (1.5-2.4)
[2024-06-06 09:35] LABS: ALT 62 U/L (10-49); AST 169 U/L (14-35); Albumin/Globulin Ratio 1.25 Ratio (1.60-3.17); Alkaline Phosphatase 185 U/L (41-126); BUN/Creat Ratio 6.89 Ratio (12.00-20.00); Blood Urea Nitrogen 12.4 mg/dL (9.0-27.0); Calcium 8.9 mg/dL (8.7-10.3); Chloride 106 mmol/L (96-109); Globulin 2.4 g/dL (1.6-3.3); Glucose 136 mg/dL (70-110); Potassium 3.8 mmol/L (3.5-5.5); Sodium 139 mmol/L (135-145); Total Bilirubin 12.4 mg/dL (0.3-1.2); Total Protein 5.4 g/dL (6.2-8.2)
[2024-06-06] MEDS: SERTRALINE 100 MG TAB PO SCH (09:48)
--- NOTE | 2024-06-06 10:04 | US ---
EXAMINATION TYPE: US abdomen limited DATE OF EXAM: 06/06/2024 COMPARISON: 05/26/2024. CLINICAL INDICATION: Male, 48 years old with history of evaluate for ascites, yousuf area if large pock et; evaluate for ascites TECHNIQUE: Limited grayscale imaging the abdomen for ascites. FINDINGS: no evidence of ascites at this time. incidental finding: sludge noted within gallbladder Utilizing fluid collections identified. IMPRESSION: 1. No ascites in the abdomen. 2. Biliary sludge. [facility], , 06/06/2024 10:02 AM
--- NOTE | 2024-06-06 11:09 | P.PN ---
Subjective Patient is seen in follow-up for acute kidney injury. Renal function stable. On oral Lasix. Has been voiding. Denies chest pain or shortness of breath. Vital signs are stable. General: No acute distress. HEENT: Head exam is unremarkable. LUNGS: No audible rhonchi or wheezes. HEART: Rate and Rhythm are regular. ABDOMEN: Distention noted. EXTREMITITES: 1+ edema. Objective - Vital Signs Vital signs: Vital Signs Temp 98.6 F 06/06/24 07:20 Pulse 80 06/06/24 07:20 Resp 18 06/06/24 07:20 BP 96/65 06/06/24 07:20 Pulse Ox 96 06/06/24 07:20 FiO2 Intake & Output 06/05/24 06/06/24 06/06/24 18:59 06:59 18:59 Intake Total 776 Balance 776 Intake: Oral 776 Other: Voiding Method Bedside Commode Toilet Urinal Urinal # Voids 1 1 # Bowel Movements 8 1 1 - Labs CBC & Chem 7: 06/05/24 04:52 06/06/24 04:23 Labs: Abnormal Lab Results - Last 24 Hours (Table) 06/05/24 06/05/24 06/05/24 Range/Units 04:52 10:24 12:14 Carbon Dioxide (21.6-31.8) mmol/L Anion Gap (4.00-12.00) mmol/L Creatinine (0.6-1.5) mg/dL Est GFR (CKD-EPI) (>=60) BUN/Creatinine Ratio (12.00-20.00) Ratio Glucose (70-110) mg/dL POC Glucose (mg/dL) 145 H (70-110) mg/dL TIBC 193 L (228-460) UG/DL % Saturation 67.88 H (15.00-50.00) Transferrin 138.0 L (204.0-354.0) mg/dL Ferritin 2378.0 H (22.0-322.0) ng/mL Total Bilirubin (0.3-1.2) mg/dL AST (14-35) U/L ALT (10-49) U/L Alkaline Phosphatase (41-126) U/L Ammonia 30 H (<30) umol/L Total Protein (6.2-8.2) g/dL Albumin (3.8-4.9) g/dL Albumin/Globulin Ratio (1.60-3.17) Ratio Ur Random Sodium (40-220) mmol/L 06/05/24 06/05/24 06/05/24 Range/Units 12:30 17:22 20:07 Carbon Dioxide (21.6-31.8) mmol/L Anion Gap (4.00-12.00) mmol/L Creatinine (0.6-1.5) mg/dL Est GFR (CKD-EPI) (>=60) BUN/Creatinine Ratio (12.00-20.00) Ratio Glucose (70-110) mg/dL POC Glucose (mg/dL) 133 H 183 H (70-110) mg/dL TIBC (228-460) UG/DL % Saturation (15.00-50.00) Transferrin (204.0-354.0) mg/dL Ferritin (22.0-322.0) ng/mL Total Bilirubin (0.3-1.2) mg/dL AST (14-35) U/L ALT (10-49) U/L Alkaline Phosphatase (41-126) U/L Ammonia (<30) umol/L Total Protein (6.2-8.2) g/dL Albumin (3.8-4.9) g/dL Albumin/Globulin Ratio (1.60-3.17) Ratio Ur Random Sodium 33 L (40-220) mmol/L 06/06/24 06/06/24 Range/Units 04:23 07:22 Carbon Dioxide 20.0 L (21.6-31.8) mmol/L Anion Gap 13.00 H (4.00-12.00) mmol/L Creatinine 1.8 H (0.6-1.5) mg/dL Est GFR (CKD-EPI) 46 L (>=60) BUN/Creatinine Ratio 6.89 L (12.00-20.00) Ratio Glucose 136 H (70-110) mg/dL POC Glucose (mg/dL) 127 H (70-110) mg/dL TIBC (228-460) UG/DL % Saturation (15.00-50.00) Transferrin (204.0-354.0) mg/dL Ferritin (22.0-322.0) ng/mL Total Bilirubin 12.4 H (0.3-1.2) mg/dL AST 169 H (14-35) U/L ALT 62 H (10-49) U/L Alkaline Phosphatase 185 H (41-126) U/L Ammonia (<30) umol/L Total Protein 5.4 L (6.2-8.2) g/dL Albumin 3.0 L (3.8-4.9) g/dL Albumin/Globulin Ratio 1.25 L (1.60-3.17) Ratio Ur Random Sodium (40-220) mmol/L Assessment and Plan Plan: Assessment: 1. Acute kidney injury secondary to ATN secondary to hepatorenal syndrome. CAT scan from May 26, 2024 showed no evidence of hydronephrosis. Ultrasound from this admission showed no hydronephrosis. UA fairly benign. Baseline creat inine 0.5-0.7. Creatinine stable at 1.8 today. 2. Alcohol induced liver cirrhosis. No ascites noted on abdominal ultrasound. 3. Metabolic acidosis secondary to acute kidney injury. On oral bicarb. Better. 4. Diabetes mellitus. 5. Anemia. Iron replete. 6. Volume overload. On Lasix. 7. Hypomagnesemia from diuresis. Plan: Maintain oral Lasix. Avoid nephrotoxins. Continue to monitor renal function and urine output. Increase magnesium oxide frequency to twice daily. Will add midodrine if systolic blood pressure remains below 100. Add Aldactone 25 mg twice daily. Repeat labs in the morning.
--- NOTE | 2024-06-06 11:43 | P.PN ---
Subjective Progress Note Date: 06/06/24 Principal diagnosis: Patient is a 48-year-old male with known alcoholic cirrhosis, HTN, and nicotine dependence who presented for psychiatric evaluation due to self-inflicted lacerations to left forearm initially on 05/22/2024. Underwent repair in the emergency department with a total of 16 sutures. Initial vital signs were within normal limits. Initial laboratory analysis was remarkable for hemoglobin 11.3, potassium of 2.6, total bilirubin 11.2, AST of 248, and ALT of 79. Underwent CT abdomen and pelvis which showed hepatomegaly with marked fatty infiltration of the liver but no biliary dilatation or ascites. Of note there was an infrarenal abdominal aortic aneurysm extending into the iliac branches and a fat-containing umbilical hernia. Had high CIWA score on arrival was placed on scheduled Librium and continued on IV Ativan as needed. Patient now out of alcohol withdrawal. Librium discontinued due to cirrhosis. Noted to have worsening cellulitis at the wrist. General surgery was consulted. Patient started on IV antibiotics. General surgery removed 1 suture, will be taking other sutures in 1 week. Patient was discharged on oral antibiotics to inpatient psychiatry. Patient was started on Zoloft. Continue to have generalized weakness, needs further medical optimization. 06/06: renal function stable. abdominal u/s showing no ascites. he reports he feels comfortable going home. Objective - Vital Signs Vital signs: Vital Signs Temp 98.6 F 06/06/24 07:20 Pulse 80 06/06/24 07:20 Resp 18 06/06/24 07:20 BP 96/65 06/06/24 07:20 Pulse Ox 96 06/06/24 07:20 FiO2 Intake & Output 06/05/24 06/06/24 06/06/24 18:59 06:59 18:59 Intake Total 776 Balance 776 Intake: Oral 776 Other: Voiding Method Bedside Commode Toilet Toilet Urinal Urinal Urinal # Voids 1 1 # Bowel Movements 8 1 1 - Exam General: nontoxic, no distress, appears at stated age, male, somewhat confused Derm: warm, dry, jaundiced appearance , left wrist laceration with no purulence, minimal erythema wound dehisced to other lacerations with sutures in place, minimal erythema Head: atraumatic, normocephalic, symmetric Eyes: EOMI, no lid lag, + scleral icterus, pupils equal round reactive to light ENT: Nose and ears atraumatic Neck: No thyromegaly, supple Mouth: no lip lesion, mucus membranes moist Cardiovascular: S1S2 reg, no murmur, no edema Lungs: clear to auscultation bilateral, no rhonchi, no rales, no wheeze, no accessory muscle use Abdominal: soft, distended, nontender to palpation, no guarding, no appreciable organomegaly Ext: no gross muscle atrophy, muscle strength muscle strength 5 out of 5 in all 4 extremities, no contractures Neuro: moving all extremties spontanously Psych: calm and coopperative - Labs CBC & Chem 7: 06/05/24 04:52 06/06/24 04:23 Labs: Abnormal Lab Results - Last 24 Hours (Table) 06/05/24 06/05/24 06/05/24 Range/Units 04:52 12:14 12:30 Carbon Dioxide (21.6-31.8) mmol/L Anion Gap (4.00-12.00) mmol/L Creatinine (0.6-1.5) mg/dL Est GFR (CKD-EPI) (>=60) BUN/Creatinine Ratio (12.00-20.00) Ratio Glucose (70-110) mg/dL POC Glucose (mg/dL) 145 H (70-110) mg/dL TIBC 193 L (228-460) UG/DL % Saturation 67.88 H (15.00-50.00) Transferrin 138.0 L (204.0-354.0) mg/dL Ferritin 2378.0 H (22.0-322.0) ng/mL Total Bilirubin (0.3-1.2) mg/dL AST (14-35) U/L ALT (10-49) U/L Alkaline Phosphatase (41-126) U/L Total Protein (6.2-8.2) g/dL Albumin (3.8-4.9) g/dL Albumin/Globulin Ratio (1.60-3.17) Ratio Ur Random Sodium 33 L (40-220) mmol/L 06/05/24 06/05/24 06/06/24 Range/Units 17:22 20:07 04:23 Carbon Dioxide 20.0 L (21.6-31.8) mmol/L Anion Gap 13.00 H (4.00-12.00) mmol/L Creatinine 1.8 H (0.6-1.5) mg/dL Est GFR (CKD-EPI) 46 L (>=60) BUN/Creatinine Ratio 6.89 L (12.00-20.00) Ratio Glucose 136 H (70-110) mg/dL POC Glucose (mg/dL) 133 H 183 H (70-110) mg/dL TIBC (228-460) UG/DL % Saturation (15.00-50.00) Transferrin (204.0-354.0) mg/dL Ferritin (22.0-322.0) ng/mL Total Bilirubin 12.4 H (0.3-1.2) mg/dL AST 169 H (14-35) U/L ALT 62 H (10-49) U/L Alkaline Phosphatase 185 H (41-126) U/L Total Protein 5.4 L (6.2-8.2) g/dL Albumin 3.0 L (3.8-4.9) g/dL Albumin/Globulin Ratio 1.25 L (1.60-3.17) Ratio Ur Random Sodium (40-220) mmol/L 06/06/24 Range/Units 07:22 Carbon Dioxide (21.6-31.8) mmol/L Anion Gap (4.00-12.00) mmol/L Creatinine (0.6-1.5) mg/dL Est GFR (CKD-EPI) (>=60) BUN/Creatinine Ratio (12.00-20.00) Ratio Glucose (70-110) mg/dL POC Glucose (mg/dL) 127 H (70-110) mg/dL TIBC (228-460) UG/DL % Saturation (15.00-50.00) Transferrin (204.0-354.0) mg/dL Ferritin (22.0-322.0) ng/mL Total Bilirubin (0.3-1.2) mg/dL AST (14-35) U/L ALT (10-49) U/L Alkaline Phosphatase (41-126) U/L Total Protein (6.2-8.2) g/dL Albumin (3.8-4.9) g/dL Albumin/Globulin Ratio (1.60-3.17) Ratio Ur Random Sodium (40-220) mmol/L Assessment and Plan Assessment: Suicidal ideation with self-inflicted left arm lacerations status post repair in the ER Wound dehiscence of the left wrist Left wrist infected self inflicted woud with surrounding cellulitis the patient reports that his son had in [facility] during the summer due to a VMA -Continue oral doxycycline 100 mg twice daily -Continue Zoloft 100 mg daily - seen by psychiatry team and reported ok to return to community. Acute kidney injury baseline cr near 0.8 Likely has a component of hrs syndrome -continue lasix for volume control monitor bp Alcohol dependence Alcohol withdrawal, resolved Alcoholic cirrhosis Toxic metabolic encephalopathy-resolve -Thiamine 100 mg love -Lactulose 30 g 3 times daily -reports was seen by [facility] earlier this year and was not a candidate for [facility] transplant -no evidence of ascites seen on liver u/s today Hyperglycemia, newly diagnosed diabetes mellitus type 2 -Subcu insulin sliding scale ACHS, monitor for hypoglycemia -Hold oral hypoglycemics Nicotine dependence -Continue nicotine patch 21 mg daily Debility Generalized weakness -PT/OT consult The patient is admitted with an anticipated greater than 2 midnight stay as inpatient status for evaluation of generalized weakness. CODE STATUS: Full code DVT prophylaxis: lovenox Anticipated discharge date: [address]: SNF Time with Patient: Greater than 30
[2024-06-06] MEDS: SPIRONOLACTONE 25 MG TAB PO SCH (11:58)
[2024-06-06 12:44] LABS: Glucose,Whole Blood 134 mg/dL (70-110)
--- NOTE | 2024-06-06 13:49 | P.CONS ---
History of Present Illness - Reason for Consult Consult date: 06/06/24 Rehab recommendations - Chief Complaint Generalized Weakness - History of Present Illness Lalo Webb is a 48 year old, left handed, male, who lives with his parents in a 1 story home with ramp. Prior to admission, pt was ambulating without an assistive device. Pt was independent for basic/advanced ADLs. Current driving: yes. Support system: family. 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 Pt was admitted on 06/04/24 for psychiatric evaluation due to self-inflicted lacerations to left forearm initially on 05/22/2024. Underwent repair in the emergency department with a total of 16 sutures. Per records, CT abdomen and pelvis showed hepatomegaly with marked fatty infiltration of the liver but no biliary dilatation or ascites; there was an infrarenal abdominal aortic aneurysm extending into the iliac branches and a fat-containing umbilical hernia. Had high CIWA score on arrival and was placed on scheduled Librium and continued on IV Ativan as needed. Records indicate patient is now out of alcohol withdrawal and Librium discontinued due to cirrhosis. Noted to have worsening cellulitis at the wrist. General surgery was consulted and he was started on antibiotics. General surgery removed 1 suture, will be taking other sutures in 1 week. Patient was discharged on oral antibiotics to inpatient psychiatry. Patient was started on Zoloft. Continued to have generalized weakness, and transferred back to medical floor. Therapies reviewed: patient needing supervision with bed mobility, supervision with sit to stand, supervision with transfers, frequent cueing needed to maintain walker in proper positioning, Garrett to maintain balance. 06/06/24: Patient seen and examined resting in bed. Reports prior to arrival, he was drinking one fifth of alcohol per day for the last 10 years. Denies current suicidal ideation. Denies CP and SOB. Reports nausea, abdominal pain and diarrhea since hospital admission. Denies complaints with urination. Review of Systems ROS: as above in subjective. Past Medical History Past Medical History: Hypertension Additional Past Medical History / Comment(s): ETOH, fatty liver, alcoholic liver disease, crohns, colitis, no teeth on top- uses dentures (not with patient) History of Any Multi-Drug Resistant Organisms: None Reported Past Surgical History: No Surgical Hx Reported Past Anesthesia/Blood Transfusion Reactions: No Reported Reaction Additional Past Anesthesia/Blood Transfusion Reaction / Comm: na Past Psychological History: Depression Smoking Status: Current every day smoker Past Alcohol Use History: Daily, Heavy Additional Past Alcohol Use History / Comment(s): patibrandee reports he drinks a fifth daily Past Drug Use History: None Reported - Past Family History Father Family Medical History: Myocardial Infarction (SD) Additional Family Medical History / Comment(s): at 58 from SD Mother Additional Family Medical History / Comment(s): hip replacement/ problems walking. Brother(s) Additional Family Medical History / Comment(s): 2x back surgeries Medications and Allergies Home Medications Medication Instructions Recorded Confirmed Type Acetaminophen Tab [Tylenol] 650 mg PO Q6HR PRN tab 06/03/24 06/04/24 Rx Doxycycline [Vibramycin] 100 mg PO BID 10 Days #20 capsule 06/03/24 06/04/24 Rx Folic Acid 1 mg PO DAILY tab 06/03/24 06/04/24 Rx Lactulose [Cephulac] 30 gm PO TID ml 06/03/24 06/04/24 Rx Multivitamins, Thera [Multivitamin 1 tab PO DAILY 06/03/24 06/04/24 History (formulary)] Mupirocin 2% Oint [Bactroban 2% 1 applic TOPICAL TID each 06/03/24 06/04/24 Rx Oint] Nicotine 21Mg/24Hr Patch [Habitrol] 1 patch TRANSDERM DAILY patch 06/03/24 06/04/24 Rx Thiamine [Vitamin B-1] 100 mg PO DAILY tab 06/03/24 06/04/24 Rx glipiZIDE 5 mg PO BID #20 tablet 06/03/24 06/04/24 Rx metFORMIN HCL 500 mg PO BID #20 tablet 06/03/24 06/04/24 Rx Allergies Allergy/AdvReac Type Severity Reaction Status Date / Time No Known Allergies Allergy Verified 06/03/24 14:40 Physical Exam Vitals: Vital Signs Temp Pulse Resp BP Pulse Ox 06/06/24 07:20 98.6 F 80 18 96/65 96 06/06/24 01:32 98.1 F 80 20 111/75 98 06/05/24 19:06 98.0 F 98 20 151/100 97 06/05/24 12:51 97.7 F 80 16 119/73 97 Intake and Output 06/05/24 06/06/24 06/06/24 22:59 06:59 14:59 Other: Voiding Method Toilet Urinal # Voids 2 1 # Bowel Movements 2 1 1 General: Well-developed male, in no acute distress, appears fatigued HEENT: NC/AT, external ears intact, hearing intact to conversational speech Cardiovascular: B/L calves are supple, nontender, no cords, +BLLE peripheral fred ma, no cardiac distress Respiratory: Even and unlabored breathing on RA Abdomen: +distended Musculoskeletal: ROM WFL EXCEPT: generalized weakness Neurological: Alert and oriented x 4. CN II-XII: Grossly intact. Speech is clear, fluent MMT: BL UE 5/5, BL LE 5/5 Reflexes: 2+ bilateral biceps, brachioradialis, triceps, patellar, achilles Sensation: intact to light touch BL upper and lower extremities Skin: Skin intact where visible to head, neck, and bilateral upper and lower extremities EXCEPT: left forearm laceration wrapped with JULIA wrap, unable to visualize Psychiatric: Mood calm, cooperative, flat affect Results CBC & Chem 7: 06/05/24 04:52 06/06/24 04:23 Labs: Abnormal Lab Results - Last 24 Hours (Table) 06/05/24 06/05/24 06/05/24 Range/Units 04:52 10:24 12:14 Carbon Dioxide (21.6-31.8) mmol/L Anion Gap (4.00-12.00) mmol/L Creatinine (0.6-1.5) mg/dL Est GFR (CKD-EPI) (>=60) BUN/Creatinine Ratio (12.00-20.00) Ratio Glucose (70-110) mg/dL POC Glucose (mg/dL) 145 H (70-110) mg/dL TIBC 193 L (228-460) UG/DL % Saturation 67.88 H (15.00-50.00) Transferrin 138.0 L (204.0-354.0) mg/dL Ferritin 2378.0 H (22.0-322.0) ng/mL Total Bilirubin (0.3-1.2) mg/dL AST (14-35) U/L ALT (10-49) U/L Alkaline Phosphatase (41-126) U/L Ammonia 30 H (<30) umol/L Total Protein (6.2-8.2) g/dL Albumin (3.8-4.9) g/dL Albumin/Globulin Ratio (1.60-3.17) Ratio Ur Random Sodium (40-220) mmol/L 06/05/24 06/05/24 06/05/24 Range/Units 12:30 17:22 20:07 Carbon Dioxide (21.6-31.8) mmol/L Anion Gap (4.00-12.00) mmol/L Creatinine (0.6-1.5) mg/dL Est GFR (CKD-EPI) (>=60) BUN/Creatinine Ratio (12.00-20.00) Ratio Glucose (70-110) mg/dL POC Glucose (mg/dL) 133 H 183 H (70-110) mg/dL TIBC (228-460) UG/DL % Saturation (15.00-50.00) Transferrin (204.0-354.0) mg/dL Ferritin (22.0-322.0) ng/mL Total Bilirubin (0.3-1.2) mg/dL AST (14-35) U/L ALT (10-49) U/L Alkaline Phosphatase (41-126) U/L Ammonia (<30) umol/L Total Protein (6.2-8.2) g/dL Albumin (3.8-4.9) g/dL Albumin/Globulin Ratio (1.60-3.17) Ratio Ur Random Sodium 33 L (40-220) mmol/L 06/06/24 06/06/24 Range/Units 04:23 07:22 Carbon Dioxide 20.0 L (21.6-31.8) mmol/L Anion Gap 13.00 H (4.00-12.00) mmol/L Creatinine 1.8 H (0.6-1.5) mg/dL Est GFR (CKD-EPI) 46 L (>=60) BUN/Creatinine Ratio 6.89 L (12.00-20.00) Ratio Glucose 136 H (70-110) mg/dL POC Glucose (mg/dL) 127 H (70-110) mg/dL TIBC (228-460) UG/DL % Saturation (15.00-50.00) Transferrin (204.0-354.0) mg/dL Ferritin (22.0-322.0) ng/mL Total Bilirubin 12.4 H (0.3-1.2) mg/dL AST 169 H (14-35) U/L ALT 62 H (10-49) U/L Alkaline Phosphatase 185 H (41-126) U/L Ammonia (<30) umol/L Total Protein 5.4 L (6.2-8.2) g/dL Albumin 3.0 L (3.8-4.9) g/dL Albumin/Globulin Ratio 1.25 L (1.60-3.17) Ratio Ur Random Sodium (40-220) mmol/L Assessment and Plan Assessment: #Impaired gait and ADLs secondary to toxic metabolic encephalopathy -Improving -Comprehensive therapies #Depresion with Suicidal ideation with self-inflicted left arm laceration s/p re pair with wound dehiscense and cellulitis -Abx per AUG; suture removal per general surgery recommendations -Zoloft per AUG; psych on consult #Hx alcohol dependence s/p withdrawal #Alcoholic Cirrhosis #DM type 2 #DRAKE #Nicotine dependence -Nicotine patch per AUG #Bowel/ Bladder: Nursing to monitor and report concerns if any. # Diet -Per EMR # Skin/wound: Skin/Wound care to follow as needed -General surgery following for self-inflicted wound of left wrist # Pain Management -None per AUG # DVT Prophylaxis: Defer to Ortho/IM management. -Heparin SQ per AUG # Comorbidities: HTN, Crohn's disease # Your medical dx and mgt Goals: Modified Independent mobility and ADLS both basic and advanced; increased functional mobility/strength; increased balance, safety, endurance. Improvement in medical issues through your care. Barriers: fall risk, weakness Discharge recommendation: Therapy notes reviewed, patient currently below baseline level of function. Checked with [facility] IPR staff and patient's insurance does not have out of network benefits for [facility] IPR program. After medically cleared, would recommend a structured rehab program, such as [facility], for patient at this time. Patient seen and examined in collaboration with Consuelo Tan PA-C and Dr. Amaya. Thank you for this consultation.
--- NOTE | 2024-06-06 13:53 | P.PN ---
Progress Note - Text Progress Note Date: 06/06/24 IDENTIFYING DATA: The patient is a 48-year-old male, living at home with parents REASON FOR CONSULT: Suicidal thoughts INTERVAL HISTORY: Patient seen and evaluated. He was seen sitting up eating in bed. He states feeling better today, rating depression 4/10 in severity today. He denied any adverse effects from the Zoloft. He vehemently denied any suicidal thoughts, also denying any homicidal thoughts or AVH. He states sleeping poor overnight related to the environment. He is no longer interested in rehab, stating he has gone before and that he feels as though he has all the tools he needs to maintain his sobriety outpatient. He states nobody drinks at his house. He is agreeable with continuing his medication and following up outpatient. Spoke to patient's mother Juana who expressed concerns with patient's depression, stating patient has lost his job and has gone to rehab several times before but continues to drink. She states she has not spoken to patient in a few days but has concerns given patient's recent suicide attempt. All of her concerns were addressed. MENTAL STATUS EXAM: General Appearance: Patient appears to be stated age. Patient appears to have fair hygiene and grooming wearing hospital gown with fair eye contact. Behavior: Patient is calmly lying in bed without any agitated behavior. Speech: Low volume and slow rate Mood/Affect: "Good" and affect is blunted, congruent Suicidality/Homicidality: There are no suicidal or homicidal ideations Perceptions: No perceptual abnormalities Though content/process: Superficially linear and logical Judgment and insight: Historically poor however mildly improving IMPRESSIONS: Suicide attempt via cutting Major depressive disorder Alcohol use disorder, severe Cannabis use disorder Nicotine dependence PLAN: -At this time patient DOES NOT meet criteria for inpatient psychiatric admission . -Would recommend the following medication changes/additions: Continue Zoloft 100 mg daily for depression -Can discontinue 1:1 sitter at this time as patient is not currently an imminent threat to themselves -exhaust worker to provide patient with outpatient mental health/psychiatry resources for appropriate follow up upon discharge -Adult School Teacher spoke with patient about substance abuse and the harmful effects on medical and mental health, patient verbally understood and agreed. -exhaust worker to provide patient substance use treatment resources including AA/NA meetings in the community. -exhaust worker to provide patient with access line number to call for inpatient substance rehab -Will continue to follow along -Please contact with any questions.
[2024-06-06 17:20] LABS: Glucose,Whole Blood 144 mg/dL (70-110)
[2024-06-06] MEDS ORDERED: ONDANSETRON 4 MG/2 ML VIAL IVP PRN (17:38)
[2024-06-06] MEDS ORDERED: ONDANSETRON ODT 4 MG TAB PO PRN (18:32)
[2024-06-06 20:03] LABS: Glucose,Whole Blood 161 mg/dL (70-110)
[2024-06-06] MEDS: MAGNESIUM OXIDE 400 MG TAB PO SCH (20:48)
[2024-06-07 07:35] LABS: Glucose,Whole Blood 119 mg/dL (70-110)
[2024-06-07 09:15] LABS: Magnesium 1.5 mg/dL (1.5-2.4)
[2024-06-07 09:19] LABS: BUN/Creat Ratio 8.39 Ratio (12.00-20.00); Blood Urea Nitrogen 15.1 mg/dL (9.0-27.0); Calcium 8.7 mg/dL (8.7-10.3); Carbon Dioxide 19.9 mmol/L (21.6-31.8); Chloride 106 mmol/L (96-109); Glucose 132 mg/dL (70-110); Potassium 3.8 mmol/L (3.5-5.5); Sodium 139 mmol/L (135-145)
--- NOTE | 2024-06-07 11:05 | P.PN ---
Subjective Patient is seen in follow-up for acute kidney injury. Renal function stable. On oral Lasix. Aldactone added yesterday. Has been voiding. Denies chest pain or shortness of breath. Vital signs are stable. General: No acute distress. HEENT: Head exam is unremarkable. LUNGS: No audible rhonchi or wheezes. HEART: Rate and Rhythm are regular. ABDOMEN: Distention noted. EXTREMITITES: Trace edema. Objective - Vital Signs Vital signs: Vital Signs Temp 98.5 F 06/07/24 07:33 Pulse 82 06/07/24 07:33 Resp 16 06/07/24 07:33 BP 103/68 06/07/24 07:33 Pulse Ox 94 L 06/07/24 07:33 FiO2 Intake & Output 06/06/24 06/07/24 06/07/24 18:59 06:59 18:59 Other: Voiding Method Toilet Toilet Urinal Urinal # Voids 3 # Bowel Movements 1 3 1 - Labs CBC & Chem 7: 06/05/24 04:52 06/07/24 05:09 Labs: Abnormal Lab Results - Last 24 Hours (Table) 06/06/24 06/06/24 06/06/24 Range/Units 12:42 17:19 19:55 Carbon Dioxide (21.6-31.8) mmol/L Anion Gap (4.00-12.00) mmol/L Creatinine (0.6-1.5) mg/dL Est GFR (CKD-EPI) (>=60) BUN/Creatinine Ratio (12.00-20.00) Ratio Glucose (70-110) mg/dL POC Glucose (mg/dL) 134 H 144 H 161 H (70-110) mg/dL Vitamin B12 (200.0-944.0) pg/mL 06/07/24 06/07/24 06/07/24 Range/Units 05:09 05:09 07:34 Carbon Dioxide 19.9 L (21.6-31.8) mmol/L Anion Gap 13.10 H (4.00-12.00) mmol/L Creatinine 1.8 H (0.6-1.5) mg/dL Est GFR (CKD-EPI) 46 L (>=60) BUN/Creatinine Ratio 8.39 L (12.00-20.00) Ratio Glucose 132 H (70-110) mg/dL POC Glucose (mg/dL) 119 H (70-110) mg/dL Vitamin B12 1656.0 H (200.0-944.0) pg/mL Assessment and Plan Plan: Assessment: 1. Acute kidney injury secondary to ATN secondary to hepatorenal syndrome. CAT scan from May 26, 2024 showed no evidence of hydronephrosis. Ultrasound from this admission showed no hydronephrosis. UA fairly benign. Baseline creatinine 0.5-0.7. Creatinine stable at 1.8 today. 2. Alcohol induced liver cirrhosis. No ascites noted on abdominal ultrasound. 3. Metabolic acidosis secondary to acute kidney injury. On oral bicarb. Stable. 4. Diabetes mellitus. 5. Anemia. Iron replete. 6. Volume overload. On Lasix and Aldactone. Improved. 7. Hypomagnesemia from diuresis. On oral magnesium oxide. Stable. Plan: Maintain oral Lasix. Maintain Aldactone. Avoid nephrotoxins. Continue to monitor renal function and urine output. Will add midodrine if systolic blood pressure remains below 100. Repeat labs in the morning.
[2024-06-07 12:08] LABS: Glucose,Whole Blood 155 mg/dL (70-110)
--- NOTE | 2024-06-07 12:53 | P.PN ---
Subjective Progress Note Date: 06/07/24 Principal diagnosis: Patient is a 48-year-old male with known alcoholic cirrhosis, HTN, and nicotine dependence who presented for psychiatric evaluation due to self-inflicted lacerations to left forearm initially on 05/22/2024. Underwent repair in the emergency department with a total of 16 sutures. Initial vital signs were within normal limits. Initial laboratory analysis was remarkable for hemoglobin 11.3, potassium of 2.6, total bilirubin 11.2, AST of 248, and ALT of 79. Underwent CT abdomen and pelvis which showed hepatomegaly with marked fatty infiltration of the liver but no biliary dilatation or ascites. Of note there was an infrarenal abdominal aortic aneurysm extending into the iliac branches and a fat-containing umbilical hernia. Had high CIWA score on arrival was placed on scheduled Librium and continued on IV Ativan as needed. Patient now out of alcohol withdrawal. Librium discontinued due to cirrhosis. Noted to have worsening cellulitis at the wrist. General surgery was consulted. Patient started on IV antibiotics. General surgery removed 1 suture, will be taking other sutures in 1 week. Patient was discharged on oral antibiotics to inpatient psychiatry. Patient was started on Zoloft. Continue to have generalized weakness, needs further medical optimization. 06/07: renal function stable. He reports he wishes to go home but rehab is recommended. Objective - Vital Signs Vital signs: Vital Signs Temp 97.4 F L 06/07/24 12:03 Pulse 82 06/07/24 07:33 Resp 18 06/07/24 12:03 BP 117/78 06/07/24 12:03 Pulse Ox 96 06/07/24 12:03 FiO2 Intake & Output 06/06/24 06/07/24 06/07/24 18:59 06:59 18:59 Other: Voiding Method Toilet Toilet Toilet Urinal Urinal Urinal # Voids 3 # Bowel Movements 1 3 1 - Exam General: nontoxic, no distress, appears at stated age, male, somewhat confused Derm: warm, dry, jaundiced appearance , left wrist laceration wrapped Head: atraumatic, normocephalic, symmetric Eyes: EOMI, no lid lag, + scleral icterus, pupils equal round reactive to light ENT: Nose and ears atraumatic Neck: No thyromegaly, supple Mouth: no lip lesion, mucus membranes moist Cardiovascular: S1S2 reg, no murmur, no edema Lungs: clear to auscultation bilateral, no rhonchi, no rales, no wheeze, no accessory muscle use Abdominal: soft, distended, nontender to palpation, no guarding, no appreciable organomegaly Ext: no gross muscle atrophy, muscle strength muscle strength 5 out of 5 in all 4 extremities, no contractures Neuro: moving all extremties spontanously Psych: calm and coopperative - Labs CBC & Chem 7: 06/05/24 04:52 06/07/24 05:09 Labs: Abnormal Lab Results - Last 24 Hours (Table) 06/06/24 06/06/24 06/07/24 Range/Units 17:19 19:55 05:09 Carbon Dioxide (21.6-31.8) mmol/L Anion Gap (4.00-12.00) mmol/L Creatinine (0.6-1.5) mg/dL Est GFR (CKD-EPI) (>=60) BUN/Creatinine Ratio (12.00-20.00) Ratio Glucose (70-110) mg/dL POC Glucose (mg/dL) 144 H 161 H (70-110) mg/dL Vitamin B12 1656.0 H (200.0-944.0) pg/mL 06/07/24 06/07/24 06/07/24 Range/Units 05:09 07:34 12:04 Carbon Dioxide 19.9 L (21.6-31.8) mmol/L Anion Gap 13.10 H (4.00-12.00) mmol/L Creatinine 1.8 H (0.6-1.5) mg/dL Est GFR (CKD-EPI) 46 L (>=60) BUN/Creatinine Ratio 8.39 L (12.00-20.00) Ratio Glucose 132 H (70-110) mg/dL POC Glucose (mg/dL) 119 H 155 H (70-110) mg/dL Vitamin B12 (200.0-944.0) pg/mL Assessment and Plan Assessment: Suicidal ideation with self-inflicted left arm lacerations status post repair in the ER Wound dehiscence of the left wrist Left wrist infected self inflicted woud with surrounding cellulitis the patient reports that his son had in [facility] during the summer due to a VMA -Continue oral doxycycline 100 mg twice daily -Continue Zoloft 100 mg daily - seen by psychiatry team and reported ok to return to community, however would like capacity evaluation prior to d/c to snf Acute kidney injury baseline cr near 0.8 Likely has a component of hrs syndrome -monitor renal function daily -continue lasix for volume control monitor bp Alcohol dependence Alcohol withdrawal, resolved Alcoholic cirrhosis Toxic metabolic encephalopathy-resolve -Thiamine 100 mg love -Lactulose 30 g 3 times daily -reports was seen by [facility] earlier this year and was not a candidate for lvier transplant -no evidence of ascites seen on liver u/s on 06/06 Hyperglycemia, newly diagnosed diabetes mellitus type 2 -Subcu insulin sliding scale ACHS, monitor for hypoglycemia -Hold oral hypoglycemics Nicotine dependence -Continue nicotine patch 21 mg daily Debility Generalized weakness -PT/OT consult CODE STATUS: Full code DVT prophylaxis: heparin Anticipated discharge date: [address]: SNF, awaiting behavioral health evaluation Time with Patient: Greater than 30
--- NOTE | 2024-06-07 14:33 | P.PN ---
Progress Note - Text Progress Note Date: 06/07/24 IDENTIFYING DATA: Patient is a 48-year-old male, living at home with mom REASON FOR CONSULT: Suicidal thoughts INTERVAL HISTORY: Patient seen and evaluated. Patient notably was leaving the restroom, requiring 2 person assist. Patient states feeling "sad" due to him being discharged to the hospital today. He continuously expressed how he does not want to go to rehab to get stronger however is unable to elicit any valid reasons for not wanting to go. Patient initially states he wished to stay at this hospital however then later backtracked and stated that he wants to return home with mom. Patient was not able to express a consistent reason for wanting to either stay here or be discharged back home. He was unable to elicit any benefits with going to inpatient rehab or elicit any potential risks for not going to rehab. Patient is history of falls was discussed with patient however he was unable to recognize this being a potential risk despite the evidence. Patient was A&Ox4. MENTAL STATUS EXAM: General Appearance: Patient appears to be stated age. Patient appears to have poor hygiene and grooming wearing hospital gown with poor eye contact. Behavior: Patient is calmly lying in bed without any agitated behavior. Speech: Low volume, slow rate Mood/Affect: Mood described as "sad" and affect is constricted Suicidality/Homicidality: Patient vehemently denies any suicidal or homicidal ideations Perceptions: There are no perceptual abnormalities Though content/process: Linear and logical superficially Judgment and insight: Poor IMPRESSIONS: Suicide attempt via cutting Major depressive disorder Alcohol use disorder, severe Cannabis use disorder Nicotine dependence PLAN: -At this time patient DOES NOT meet criteria for inpatient psychiatric admission. -Patient DOES NOT have decision making capacity at this time and is unable to reason through and communicate/appreciate the risks, benefits and alternatives to treatment. -Would recommend the following medication changes/additions: Continue Zoloft 100 mg daily for depression -commissary worker to provide patient with outpatient mental health/psychiatry resources for appropriate follow up upon discharge -[employer] Manager spoke with patient about substance abuse and the harmful effects on medical and mental health, patient verbally understood and agreed. -Communicated plan to patient's nurse -Will continue to follow along -Please contact with any questions.
[2024-06-07 16:56] LABS: Glucose,Whole Blood 138 mg/dL (70-110)
[2024-06-07 20:43] LABS: Glucose,Whole Blood 162 mg/dL (70-110)
[2024-06-08 07:15] LABS: Glucose,Whole Blood 143 mg/dL (70-110)
[2024-06-08 10:26] LABS: Magnesium 1.6 mg/dL (1.5-2.4)
[2024-06-08 11:09] LABS: BUN/Creat Ratio 9.35 Ratio (12.00-20.00); Blood Urea Nitrogen 15.9 mg/dL (9.0-27.0); Carbon Dioxide 18.6 mmol/L (21.6-31.8); Chloride 105 mmol/L (96-109); Glucose 114 mg/dL (70-110); Sodium 139 mmol/L (135-145)
--- NOTE | 2024-06-08 12:38 | P.PN ---
Subjective Progress Note Date: 06/08/24 Principal diagnosis: Patient is a 48-year-old male with known alcoholic cirrhosis, HTN, and nicotine dependence who presented for psychiatric evaluation due to self-inflicted lacerations to left forearm initially on 05/22/2024. Underwent repair in the emergency department with a total of 16 sutures. Initial vital signs were within normal limits. Initial laboratory analysis was remarkable for hemoglobin 11.3, potassium of 2.6, total bilirubin 11.2, AST of 248, and ALT of 79. Underwent CT abdomen and pelvis which showed hepatomegaly with marked fatty infiltration of the liver but no biliary dilatation or ascites. Of note there was an infrarenal abdominal aortic aneurysm extending into the iliac branches and a fat-containing umbilical hernia. Had high CIWA score on arrival was placed on scheduled Librium and continued on IV Ativan as needed. Patient now out of alcohol withdrawal. Librium discontinued due to cirrhosis. Noted to have worsening cellulitis at the wrist. General surgery was consulted. Patient started on IV antibiotics. General surgery removed 1 suture, will be taking other sutures in 1 week. Patient was discharged on oral antibiotics to inpatient psychiatry. Patient was started on Zoloft. Continue to have generalized weakness, needs further medical optimization. 06/08: He still appears jaundiced upon examination. denies any nausea vomiting. Objective - Vital Signs Vital signs: Vital Signs Temp 97.5 F L 06/08/24 07:11 Pulse 81 06/08/24 07:11 Resp 16 06/08/24 07:11 BP 117/75 06/08/24 07:11 Pulse Ox 98 06/08/24 07:11 FiO2 Intake & Output 06/07/24 06/08/24 06/08/24 18:59 06:59 18:59 Intake Total 720 Balance 720 Intake: Oral 720 Other: Voiding Method Toilet Toilet Urinal Urinal # Voids 3 # Bowel Movements 1 3 - Exam General: nontoxic, no distress, appears at stated age, male, somewhat confused Derm: warm, dry, jaundiced appearance , left wrist laceration wrapped Head: atraumatic, normocephalic, symmetric Eyes: EOMI, no lid lag, + scleral icterus, pupils equal round reactive to light ENT: Nose and ears atraumatic Neck: No thyromegaly, supple Mouth: no lip lesion, mucus membranes moist Cardiovascular: S1S2 reg, no murmur, no edema Lungs: clear to auscultation bilateral, no rhonchi, no rales, no wheeze, no accessory muscle use Abdominal: soft, distended, nontender to palpation, no guarding, no appreciable organomegaly Ext: no gross muscle atrophy, muscle strength muscle strength 5 out of 5 in all 4 extremities, no contractures Neuro: moving all extremties spontanously Psych: calm and coopperative - Labs CBC & Chem 7: 06/05/24 04:52 06/08/24 05:37 Labs: Abnormal Lab Results - Last 24 Hours (Table) 06/07/24 06/07/24 06/08/24 Range/Units 16:54 20:40 05:37 Carbon Dioxide 18.6 L (21.6-31.8) mmol/L Anion Gap 15.40 H (4.00-12.00) mmol/L Creatinine 1.7 H (0.6-1.5) mg/dL Est GFR (CKD-EPI) 49 L (>=60) BUN/Creatinine Ratio 9.35 L (12.00-20.00) Ratio Glucose 114 H (70-110) mg/dL POC Glucose (mg/dL) 138 H 162 H (70-110) mg/dL 06/08/24 Range/Units 07:13 Carbon Dioxide (21.6-31.8) mmol/L Anion Gap (4.00-12.00) mmol/L Creatinine (0.6-1.5) mg/dL Est GFR (CKD-EPI) (>=60) BUN/Creatinine Ratio (12.00-20.00) Ratio Glucose (70-110) mg/dL POC Glucose (mg/dL) 143 H (70-110) mg/dL Assessment and Plan Assessment: Suicidal ideation with self-inflicted left arm lacerations status post repair in the ER Wound dehiscence of the left wrist Left wrist infected self inflicted woud with surrounding cellulitis the patient reports that his son had in [facility] during the summe r due to a VMA -Continue oral doxycycline 100 mg twice daily -Continue Zoloft 100 mg daily - seen by psychiatry team and reported ok to return to community, however is noted to lack capacity for medical decisions. Acute kidney injury baseline cr near 0.8 Likely has a component of hrs syndrome -monitor renal function daily -continue lasix 40 mg daily and spironolactone 25 mg twice daily for asc ites/volume control Alcohol dependence Alcohol withdrawal, resolved Alcoholic cirrhosis Toxic metabolic encephalopathy-resolved -Thiamine 100 mg love -Lactulose 30 g 3 times daily -reports was seen by [facility] earlier this year and was not a candidate for lvier transplant -no evidence of ascites seen on liver u/s on 06/06 Hyperglycemia, newly diagnosed diabetes mellitus type 2 -Subcu insulin sliding scale ACHS, monitor for hypoglycemia -Hold oral hypoglycemics Nicotine dependence -Continue nicotine patch 21 mg daily Debility Generalized weakness -PT/OT consult CODE STATUS: Full code DVT prophylaxis: heparin Anticipated discharge date: 06/[address]: SNF Time with Patient: Greater than 30
--- NOTE | 2024-06-08 12:39 | P.PN ---
Subjective Progress Note Date: 06/08/24 Patient is seen in follow-up for acute kidney injury. Renal function stable. On oral Lasix and Aldactone. Has been voiding. Denies chest pain or shortness of breath. Vital signs are stable. General: No acute distress. HEENT: Head exam is unremarkable. LUNGS: No audible rhonchi or wheezes. HEART: Rate and Rhythm are regular. ABDOMEN: Distention noted. EXTREMITITES: Trace edema. Objective - Vital Signs Vital signs: Vital Signs Temp 97.5 F L 06/08/24 07:11 Pulse 81 06/08/24 07:11 Resp 16 06/08/24 07:11 BP 117/75 06/08/24 07:11 Pulse Ox 98 06/08/24 07:11 FiO2 Intake & Output 06/07/24 06/08/24 06/08/24 18:59 06:59 18:59 Intake Total 720 Balance 720 Intake: Oral 720 Other: Voiding Method Toilet Urinal # Voids 3 # Bowel Movements 1 3 - Labs CBC & Chem 7: 06/05/24 04:52 06/08/24 05:37 Labs: Abnormal Lab Results - Last 24 Hours (Table) 06/07/24 06/07/24 06/07/24 Range/Units 12:04 16:54 20:40 POC Glucose (mg/dL) 155 H 138 H 162 H (70-110) mg/dL 06/08/24 Range/Units 07:13 POC Glucose (mg/dL) 143 H (70-110) mg/dL Assessment and Plan Assessment: 1. Acute kidney injury secondary to ATN secondary to hepatorenal syndrome. CAT scan from May 26, 2024 showed no evidence of hydronephrosis. Ultrasound from this admission showed no hydronephrosis. UA fairly benign. Baseline creatinine 0.5-0.7. Creatinine stable at 1.7 today. 2. Alcohol induced liver cirrhosis. No ascites noted on abdominal ultrasound. 3. Metabolic acidosis secondary to acute kidney injury. On oral bicarb. Stabl e. 4. Diabetes mellitus. 5. Anemia. Iron replete. 6. Volume overload. On Lasix and Aldactone. Improved. 7. Hypomagnesemia from diuresis. On oral magnesium oxide. Stable. Plan: Maintain oral Lasix. Maintain Aldactone. Avoid nephrotoxins. Continue to monitor renal function and urine output. Will add midodrine if systolic blood pressure remains below 100. Repeat labs in the morning.
[2024-06-08 12:43] LABS: Glucose,Whole Blood 169 mg/dL (70-110)
[2024-06-08] MEDS: MAGNESIUM SULFATE-D5W PMX 1 GM in DEXTROSE/WATER 1 100ML.BAG IVPB SCH (13:31)
[2024-06-08 17:17] LABS: Glucose,Whole Blood 182 mg/dL (70-110)
[2024-06-08 20:31] LABS: Glucose,Whole Blood 157 mg/dL (70-110)
[2024-06-09 07:06] LABS: Glucose,Whole Blood 129 mg/dL (70-110)
[2024-06-09 09:17] LABS: HCT 32.6 % (39.6-50.0); MCH 37.2 pg (27.0-32.0); MCHC 30.7 g/dL (32.0-37.0); MCV 121.2 FL (80.0-97.0); Mean Platelet Volume 11.9 FL (9.5-12.2); NRBC Per 100 WBC 0 X 10*3/uL (0.00-0.01); Platelet Count 319 X 10*3/uL (140-440); RBC 2.69 X 10*6/uL (4.40-5.60); RDW 15.3 % (11.5-14.5); WBC 10.05 X 10*3/uL (4.50-10.00)
[2024-06-09 09:18] LABS: Eosinophils # (A) 0.18 X 10*3/uL (0.04-0.35); Eosinophils % (A) 1.8 %; Lymphocytes # (A) 2.04 X 10*3/uL (0.90-5.00); Lymphocytes % (A) 20.3 %; Monocytes # (A) 0.59 X 10*3/uL (0.20-1.00); Monocytes % (A) 5.9 %; Neutrophils # (A) 6.97 X 10*3/uL (1.80-7.70); Neutrophils % (A) 69.3 %
--- NOTE | 2024-06-09 10:25 | P.PN ---
Subjective Progress Note Date: 06/08/24 Principal diagnosis: Patient is a 48-year-old male with known alcoholic cirrhosis, HTN, and nicotine dependence who presented for psychiatric evaluation due to self-inflicted lacerations to left forearm initially on 05/22/2024. Underwent repair in the emergency department with a total of 16 sutures. Initial vital signs were within normal limits. Initial laboratory analysis was remarkable for hemoglobin 11.3, potassium of 2.6, total bilirubin 11.2, AST of 248, and ALT of 79. Underwent CT abdomen and pelvis which showed hepatomegaly with marked fatty infiltration of the liver but no biliary dilatation or ascites. Of note there was an infrarenal abdominal aortic aneurysm extending into the iliac branches and a fat-containing umbilical hernia. Had high CIWA score on arrival was placed on scheduled Librium and continued on IV Ativan as needed. Patient now out of alcohol withdrawal. Librium discontinued due to cirrhosis. Noted to have worsening cellulitis at the wrist. General surgery was consulted. Patient started on IV antibiotics. General surgery removed 1 suture, will be taking other sutures in 1 week. Patient was discharged on oral antibiotics to inpatient psychiatry. Patient was started on Zoloft. Continue to have generali zed weakness, needs further medical optimization. 06/08: He still appears jaundiced upon examination. denies any nausea vomiting. Objective - Vital Signs Vital signs: Vital Signs Temp 97.5 F L 06/08/24 07:11 Pulse 81 06/08/24 07:11 Resp 16 06/08/24 07:11 BP 117/75 06/08/24 07:11 Pulse Ox 98 06/08/24 07:11 FiO2 Intake & Output 06/07/24 06/08/24 06/08/24 18:59 06:59 18:59 Intake Total 720 Balance 720 Intake: Oral 720 Other: Voiding Method Toilet Toilet Urinal Urinal # Voids 3 # Bowel Movements 1 3 - Exam General: nontoxic, no distress, appears at stated age, male, somewhat confused Derm: warm, dry, jaundiced appearance , left wrist laceration wrapped Head: atraumatic, normocephalic, symmetric Eyes: EOMI, no lid lag, + scleral icterus, pupils equal round reactive to light ENT: Nose and ears atraumatic Neck: No thyromegaly, supple Mouth: no lip lesion, mucus membranes moist Cardiovascular: S1S2 reg, no murmur, no edema Lungs: clear to auscultation bilateral, no rhonchi, no rales, no wheeze, no accessory muscle use Abdominal: soft, distended, nontender to palpation, no guarding, no appreciable organomegaly Ext: no gross muscle atrophy, muscle strength muscle strength 5 out of 5 in all 4 extremities, no contractures Neuro: moving all extremties spontanously Psych: calm and coopperative Objective - Vital Signs Vital signs: Vital Signs Temp 97.7 F 06/09/24 07:07 Pulse 76 06/09/24 07:07 Resp 18 06/09/24 07:07 BP 132/87 06/09/24 07:07 Pulse Ox 96 06/09/24 07:07 FiO2 Intake & Output 06/08/24 06/09/24 06/09/24 18:59 06:59 18:59 Intake Total 1740 Output Total 450 Balance 1740 -450 Intake: Oral 1740 Output: Urine 450 Other: Voiding Method Toilet Urinal # Voids 3 # Bowel Movements 10 8 2 - Labs CBC & Chem 7: 06/09/24 02:43 06/08/24 05:37 Labs: Abnormal Lab Results - Last 24 Hours (Table) 06/08/24 06/08/24 06/08/24 Range/Units 05:37 12:40 17:15 WBC (4.50-10.00) X 10*3/uL RBC (4.40-5.60) X 10*6/uL Hgb (13.0-17.0) g/dL Hct (39.6-50.0) % MCV (80.0-97.0) FL MCH (27.0-32.0) pg MCHC (32.0-37.0) g/dL RDW (11.5-14.5) % Immature Gran # (0.00-0.04) X 10*3/uL Basophils # (0.00-0.10) X 10*3/uL Carbon Dioxide 18.6 L (21.6-31.8) mmol/L Anion Gap 15.40 H (4.00-12.00) mmol/L Creatinine 1.7 H (0.6-1.5) mg/dL Est GFR (CKD-EPI) 49 L (>=60) BUN/Creatinine Ratio 9.35 L (12.00-20.00) Ratio Glucose 114 H (70-110) mg/dL POC Glucose (mg/dL) 169 H 182 H (70-110) mg/dL 06/08/24 06/09/24 06/09/24 Range/Units 20:26 02:43 07:05 WBC 10.05 H (4.50-10.00) X 10*3/uL RBC 2.69 L (4.40-5.60) X 10*6/uL Hgb 10.0 L (13.0-17.0) g/dL Hct 32.6 L (39.6-50.0) % MCV 121.2 H (80.0-97.0) FL MCH 37.2 H (27.0-32.0) pg MCHC 30.7 L (32.0-37.0) g/dL RDW 15.3 H (11.5-14.5) % Immature Gran # 0.07 H (0.00-0.04) X 10*3/uL Basophils # 0.20 H (0.00-0.10) X 10*3/uL Carbon Dioxide (21.6-31.8) mmol/L Anion Gap (4.00-12.00) mmol/L Creatinine (0.6-1.5) mg/dL Est GFR (CKD-EPI) (>=60) BUN/Creatinine Ratio (12.00-20.00) Ratio Glucose (70-110) mg/dL POC Glucose (mg/dL) 157 H 129 H (70-110) mg/dL Assessment and Plan Assessment: Assessment and Plan Assessment: Suicidal ideation with self-inflicted left arm lacerations status post repair in the ER Wound dehiscence of the left wrist Left wrist infected self inflicted woud with surrounding cellulitis the patient reports that his son had in [facility] during the summer due to a VMA -Continue oral doxycycline 100 mg twice daily -Continue Zoloft 100 mg daily - seen by psychiatry team and reported ok to return to community, however is noted to lack capacity for medical decisions. Acute kidney injury baseline cr near 0.8 Likely has a component of hrs syndrome -monitor renal function daily -continue lasix 40 mg daily and spironolactone 25 mg twice daily for ascites/volume control Alcohol dependence Alcohol withdrawal, resolved Alcoholic cirrhosis Toxic metabolic encephalopathy-resolved -Thiamine 100 mg love -Lactulose 30 g 3 times daily -reports was seen by [facility] earlier this year and was not a candidate for lvier transplant -no evidence of ascites seen on liver u/s on 06/06 Hyperglycemia, newly diagnosed diabetes mellitus type 2 -Subcu insulin sliding scale ACHS, monitor for hypoglycemia -Hold oral hypoglycemics Nicotine dependence -Continue nicotine patch 21 mg daily Debility Generalized weakness -PT/OT consult 06/09 Patient seen and examined at bedside Resting comfortably, no acute distress Continue doxycycline 100 mg twice a day Continue Zoloft 100 mg a day Times to be cleared by psych team however not currently medically stable Follow-up on morning labs Continue diuresis with Lasix 40 mg daily and Aldactone 25 mg twice daily Monitor for alcohol withdrawal symptoms although seems to be have resolved Continue thiamine Continue folic acid CODE STATUS: Full code DVT prophylaxis: heparin Anticipated discharge date: 06/[address]: SNF Time with Patient: Greater than 30
[2024-06-09 11:13] LABS: ALT 85 U/L (10-49); AST 236 U/L (14-35); Albumin 3.3 g/dL (3.8-4.9); Albumin/Globulin Ratio 1.32 Ratio (1.60-3.17); Alkaline Phosphatase 175 U/L (41-126); BUN/Creat Ratio 9.12 Ratio (12.00-20.00); Blood Urea Nitrogen 14.6 mg/dL (9.0-27.0); Calcium 8.9 mg/dL (8.7-10.3); Carbon Dioxide 21.6 mmol/L (21.6-31.8); Chloride 105 mmol/L (96-109); Globulin 2.5 g/dL (1.6-3.3); Glucose 147 mg/dL (70-110); Potassium 3.8 mmol/L (3.5-5.5); Sodium 139 mmol/L (135-145); Total Bilirubin 12.5 mg/dL (0.3-1.2); Total Protein 5.8 g/dL (6.2-8.2)
--- NOTE | 2024-06-09 11:57 | P.PN ---
Subjective Progress Note Date: 06/09/24 Patient is seen in follow-up for acute kidney injury. Renal function stable. On oral Lasix and Aldactone. Has been voiding. Denies chest pain or shortness of breath. Vital signs are stable. General: No acute distress. HEENT: Head exam is unremarkable. LUNGS: No audible rhonchi or wheezes. HEART: Rate and Rhythm are regular. ABDOMEN: Distention noted. EXTREMITITES: Trace edema. Objective - Vital Signs Vital signs: Vital Signs Temp 97.7 F 06/09/24 07:07 Pulse 76 06/09/24 07:07 Resp 18 06/09/24 07:07 BP 132/87 06/09/24 07:07 Pulse Ox 96 06/09/24 07:07 FiO2 Intake & Output 06/08/24 06/09/24 06/09/24 18:59 06:59 18:59 Intake Total 1740 Output Total 450 Balance 1740 -450 Intake: Oral 1740 Output: Urine 450 Other: Voiding Method Toilet Urinal # Voids 3 # Bowel Movements 10 8 2 - Labs CBC & Chem 7: 06/09/24 02:43 06/09/24 02:43 Labs: Abnormal Lab Results - Last 24 Hours (Table) 06/08/24 06/08/24 06/08/24 Range/Units 05:37 12:40 17:15 WBC (4.50-10.00) X 10*3/uL RBC (4.40-5.60) X 10*6/uL Hgb (13.0-17.0) g/dL Hct (39.6-50.0) % MCV (80.0-97.0) FL MCH (27.0-32.0) pg MCHC (32.0-37.0) g/dL RDW (11.5-14.5) % Immature Gran # (0.00-0.04) X 10*3/uL Basophils # (0.00-0.10) X 10*3/uL Carbon Dioxide 18.6 L (21.6-31.8) mmol/L Anion Gap 15.40 H (4.00-12.00) mmol/L Creatinine 1.7 H (0.6-1.5) mg/dL Est GFR (CKD-EPI) 49 L (>=60) BUN/Creatinine Ratio 9.35 L (12.00-20.00) Ratio Glucose 114 H (70-110) mg/dL POC Glucose (mg/dL) 169 H 182 H (70-110) mg/dL 06/08/24 06/09/24 06/09/24 Range/Units 20:26 02:43 07:05 WBC 10.05 H (4.50-10.00) X 10*3/uL RBC 2.69 L (4.40-5.60) X 10*6/uL Hgb 10.0 L (13.0-17.0) g/dL Hct 32.6 L (39.6-50.0) % MCV 121.2 H (80.0-97.0) FL MCH 37.2 H (27.0-32.0) pg MCHC 30.7 L (32.0-37.0) g/dL RDW 15.3 H (11.5-14.5) % Immature Gran # 0.07 H (0.00-0.04) X 10*3/uL Basophils # 0.20 H (0.00-0.10) X 10*3/uL Carbon Dioxide (21.6-31.8) mmol/L Anion Gap (4.00-12.00) mmol/L Creatinine (0.6-1.5) mg/dL Est GFR (CKD-EPI) (>=60) BUN/Creatinine Ratio (12.00-20.00) Ratio Glucose (70-110) mg/dL POC Glucose (mg/dL) 157 H 129 H (70-110) mg/dL Assessment and Plan Assessment: 1. Acute kidney injury secondary to ATN secondary to hepatorenal syndrome. CAT scan from May 26, 2024 showed no evidence of hydronephrosis. Ultrasound from this admission showed no hydronephrosis. UA fairly benign. Baseline creatinine 0.5-0.7. Creatinine stable at 1.7 2. Alcohol induced liver cirrhosis. No ascites noted on abdominal ultrasound. 3. Metabolic acidosis secondary to acute kidney injury. On oral bicarb. Stable. 4. Diabetes mellitus. 5. Anemia. Iron replete. 6. Volume overload. On Lasix and Aldactone. Improved. 7. Hypomagnesemia from diuresis. On oral magnesium oxide. Stable. Plan: Maintain oral Lasix. Maintain Aldactone. Avoid nephrotoxins. Continue to monitor renal function and urine output. Will add midodrine if systolic blood pressure remains below 100. Repeat labs in the morning.
[2024-06-09 12:06] LABS: Glucose,Whole Blood 172 mg/dL (70-110)
[2024-06-09 17:12] LABS: Glucose,Whole Blood 145 mg/dL (70-110)
[2024-06-09 20:19] LABS: Glucose,Whole Blood 142 mg/dL (70-110)
[2024-06-10 07:31] LABS: Glucose,Whole Blood 127 mg/dL (70-110)
[2024-06-10 10:20] LABS: African American GFR (CKD) 55 (>60 ml/min/1.73 sqM); Anion Gap 11 mmol/L; Blood Urea Nitrogen 20 mg/dL (9-20); Calcium 9.3 mg/dL (8.4-10.2); Carbon Dioxide 21 mmol/L (22-30); Chloride 107 mmol/L (98-107); Glucose 134 mg/dL (74-99); Non-African American GFR(CKD) 47 (>60 ml/min/1.73 sqM); Potassium 4.4 mmol/L (3.5-5.1); Sodium 139 mmol/L (137-145)
--- NOTE | 2024-06-10 12:03 | CDI ---
Documentation Clarification Form Date: 06/10/2024 11:20:29 AM From: Kristen Grissom RN CCDS Phone: [phone] Admit Date: 06/04/2024 02:31:00 PM Patient Name: Lalo Webb Visit Number: [id number] Discharge Date: ATTENTION: The Clinical Documentation Specialists (CDI) and [facility] Coding Staff appreciate your assistance in clarifying documentation. Please respond to the clarification below the line at the bottom and electronically sign. The CDI & [facility] Coding staff will review the response and follow-up if needed. Please note: Queries are made part of the Legal Health Record. If you have any questions, please contact the author of this message via ITS. Doctor: Long The patients principal diagnosis the diagnosis that was chiefly responsible for the admission - has not been clearly identified and clarification is requested. The patient presented with the following: The patient is admitted with anticipated greater than 2 midnight stay as inpatient status for evaluation of generalized weakness. 06/04, HP History/Risk factors:48 year old male presents to the medical floor from the Psychiatry unit. Medical History: HTN, ETOH, Fatty Liver, suicide attempt, Alcoholic liver disease and crhons. 06/04, HP Clinical Indicators: Lab findings, 06/04: Hgb 11.0, Pt 14.2, INR 1.4, chl 113, Carbon dioxide 17, bun 9, Cr 1.72, GFR 46, Total bli 14.2 AST 167, ROBERTO 63 ALK POHS 192 ALBUMIN 3. 3 UA, 06/05: Urine color, Dark brown, protein trace, Bilirubin 2+, Cellular casts 6, Hyaline Casts 22 Vital Signs: 06/04: B/P 123/77, HR 94, Temp 97.6F Oral, RR 18, SpO2 99% ra Nephrology consult, 06/05: Acute kidney injury secondary to ATN secondary to hepatorenal syndrome. CAT scan from May 26, 2024 showed no evidence of hydronephrosis. Baseline creatinine 0.5-0.7 Creatinine today 1.8. US Kidney/Bladder, 06/04: No evidence for obstructive uropathy. US Abd, 06/06: No ascites in the abdomen, Biliary sludge. Treatment: 06/04 Lactulose 30mg pot id, 06/05 Lasix 40mg iv x1; 06/05 Lasxic 40mg po daily, 06/05 Sodium Bicarbonate 640mg po bid , 06/06 Alcatone 25mg po bid, 06/04 Strict Intake and Output Consults: See above Nephrology In your professional opinion, can you please clarify which diagnosis, after study, was the reason chiefly responsible for the admission? [ ] Acute kidney injury secondary to ATN secondary to hepatorenal syndrome [ ] Other, please specify [ ] Unable to determine (Template Last Revised: August 2020) MTDD
[2024-06-10 12:14] LABS: Glucose,Whole Blood 148 mg/dL (70-110)
--- NOTE | 2024-06-10 14:06 | P.PN ---
Progress Note - Text Progress Note Date: 06/10/24 IDENTIFYING DATA: Patient is a 48-year-old male, living at home with mom REASON FOR CONSULT: Suicidal thoughts INTERVAL HISTORY: Patient seen and evaluated. He continues to deny any suicidal ideations. He reports low depression today however does report poor sleep overnight. Patient did appear tired during interview and was agreeable with starting trazodone at night for sleep. He reports poor appetite today. He denied any adverse effects. MENTAL STATUS EXAM: General Appearance: Patient appears to be stated age. Patient appears to have poor hygiene and grooming wearing hospital gown with poor eye contact. Behavior: Patient is calmly lying in bed without any agitated behavior. Appears fatigued Speech: Low volume and slowed rate Mood/Affect: Mood described as "tired" and affect is constricted Suicidality/Homicidality: patient vehemently denies any suicidal or homicidal ideations Perceptions: there are no perceptual abnormalities Though content/process: linear and logical superficially Judgment and insight: Poor IMPRESSIONS: Suicide attempt via cutting Major depressive disorder Alcohol use disorder, severe Cannabis use disorder Nicotine dependence PLAN: -At this time patient DOES NOT meet criteria for inpatient psychiatric admission. Patient determined previously to not have decision-making capacity -Would recommend the following medication changes/additions: Continue Zoloft 100 mg daily for depression, start trazodone 50 mg at bedtime for sleep -adult protective caseworker to provide patient with outpatient mental health/psychiatry resources for appropriate follow up upon discharge -Pediatric Registered Nurse spoke with patient about substance abuse and the harmful effects on m edical and mental health, patient verbally understood and agreed. -Communicated plan to patient's nurse -Psychiatry will sign off at this time -Please contact with any questions.
[2024-06-10 14:48] LABS: Basophils # (A) 0.25 X 10*3/uL (0.00-0.10); Basophils % (A) 2.4 %; Eosinophils # (A) 0.21 X 10*3/uL (0.04-0.35); HCT 38.6 % (39.6-50.0); HGB 11.6 g/dL (13.0-17.0); Lymphocytes # (A) 2.62 X 10*3/uL (0.90-5.00); Lymphocytes % (A) 24.8 %; MCH 36.6 pg (27.0-32.0); MCHC 30.1 g/dL (32.0-37.0); MCV 121.8 FL (80.0-97.0); Mean Platelet Volume 12.1 FL (9.5-12.2); Monocytes # (A) 0.56 X 10*3/uL (0.20-1.00); Monocytes % (A) 5.3 %; NRBC Per 100 WBC 0 X 10*3/uL (0.00-0.01); Neutrophils # (A) 6.84 X 10*3/uL (1.80-7.70); Neutrophils % (A) 64.8 %; Platelet Count 378 X 10*3/uL (140-440); RBC 3.17 X 10*6/uL (4.40-5.60); RDW 15.2 % (11.5-14.5); WBC 10.55 X 10*3/uL (4.50-10.00)
--- NOTE | 2024-06-10 15:47 | P.PN ---
Subjective Progress Note Date: 06/10/24 Hospital Course: A 48-year-old male with past medical history of alcohol use disorder, alcoholic cirrhosis not a candidate for transplant, HTN, nicotine dependence, who presented to the ER for psychiatric evaluation due to self inflicted laceration to the left forearm initially on 05/22/2024, his wound was sutured in the ER with 16 sutures, CT abdomen showed hepatomegaly and fatty liver infiltration with no biliary duct dilation or ascites, infrarenal abdominal aortic aneurysm extending into the iliac branches and the fat-containing umbilical hernia. Patient went into alcohol withdrawal and was placed on scheduled Librium, as needed Ativan. His alcohol withdrawal was successfully treatment and Librium discontinued. However, patient was noted to have worsening cellulitis at the wrist at the site of sutures, general surgery consulted, patient was started on IV antibiotics, 1 suture removed, other sutures to be taking out in a week. It was later determined that patient lacked capacity for medical decision making. Subjective: Patient was seen and examined at bedside, complaining of fatigue and lack of sleep due to constant interruption. Some wrist pain present today Pertinent positives and negatives as discussed above, a complete review of systems was performed and all other systems are negative. Vitals Signs Reviewed. General: [nontoxic], [no distress], [appears at stated age], jaundiced Derm: [warm], [dry] Head: [atraumatic], [normocephalic], [symmetric] Eyes: [EOMI], [no lid lag], [anicteric sclera] Mouth: [no lip lesion], [mucus membranes moist] Cardiovascular: [S1S2 reg], [no murmur] Lungs: [CTA bilateral], [no rhonchi, no rales] , [no accessory muscle use] Abdominal: [soft], [ nontender to palpation], [no guarding], [no appreciable organomegaly] Ext: [no gross muscle atrophy], [no edema], [no contractures], left wrist incision with no signs of purulent discharge Neuro: [ CN II-XI grossly intact], [no focal neuro deficits] Psych: [Alert], [oriented], [appropriate affect] Data Reviewed Today: Pertinent Labs: [WBC mildly elevated 10.5, hemoglobin stable at 11.6, platelet count normal 378, creatinine stable at 1.69, sodium and potassium normal, glucose normal Assessment and Plan: Left wrist infected self-inflicted wound with surrounding cellulitis Suicidal attempt with self-inflicted left arm laceration status post repair -Continue doxycycline -Continue Zoloft -Psychiatry on board, no indications for inpatient psychiatric admission -Start trazodone 50 mg at bedtime DRAKE, resolved -Monitor BMP Alcohol cirrhosis Alcohol use disorder Alcohol withdrawal, resolved -On spironolactone and Lasix for volume control continue multivitamins continue lactulose -PPI Newly diagnosed type II DM: Holding oral hypoglycemic, on SSI nicotine dependence, continue nicotine patch, encouraged tobacco cessation Generalized weakness, PT OT on board DVT ppx: Heparin Anticipated discharge place: (Initiated, likely discharge to [facility], pending OBRA Anticipated discharge time: Stable for discharge once placement is determined Objective - Vital Signs Vital signs: Vital Signs Temp 98.0 F 06/10/24 12:24 Pulse 82 06/10/24 12:24 Resp 16 06/10/24 12:24 BP 102/69 06/10/24 12:24 Pulse Ox 96 06/10/24 12:24 FiO2 Intake & Output 06/09/24 06/10/24 06/10/24 18:59 06:59 18:59 Intake Total 1974 540 480 Output Total 275 250 Balance 1699 290 480 Intake: Oral 1974 540 480 Output: Urine 275 250 Other: Voiding Method Toilet Toilet Urinal Urinal # Voids 1 # Bowel Movements 3 1 - Labs CBC & Chem 7: 06/10/24 09:38 06/10/24 09:38 Labs: Abnormal Lab Results - Last 24 Hours (Table) 06/09/24 06/09/24 06/10/24 Range/Units 17:11 20:18 07:30 WBC (4.50-10.00) X 10*3/uL RBC (4.40-5.60) X 10*6/uL Hgb (13.0-17.0) g/dL Hct (39.6-50.0) % MCV (80.0-97.0) FL MCH (27.0-32.0) pg MCHC (32.0-37.0) g/dL RDW (11.5-14.5) % Immature Gran # (0.00-0.04) X 10*3/uL Basophils # (0.00-0.10) X 10*3/uL Carbon Dioxide (22-30) mmol/L Creatinine (0.66-1.25) mg/dL Glucose (74-99) mg/dL POC Glucose (mg/dL) 145 H 142 H 127 H (70-110) mg/dL 06/10/24 06/10/24 06/10/24 Range/Units 09:38 09:38 12:13 WBC 10.55 H (4.50-10.00) X 10*3/uL RBC 3.17 L (4.40-5.60) X 10*6/uL Hgb 11.6 L (13.0-17.0) g/dL Hct 38.6 L (39.6-50.0) % MCV 121.8 H (80.0-97.0) FL MCH 36.6 H (27.0-32.0) pg MCHC 30.1 L (32.0-37.0) g/dL RDW 15.2 H (11.5-14.5) % Immature Gran # 0.07 H (0.00-0.04) X 10*3/uL Basophils # 0.25 H (0.00-0.10) X 10*3/uL Carbon Dioxide 21 L (22-30) mmol/L Creatinine 1.69 H (0.66-1.25) mg/dL Glucose 134 H (74-99) mg/dL POC Glucose (mg/dL) 148 H (70-110) mg/dL
[2024-06-10 17:12] LABS: Glucose,Whole Blood 177 mg/dL (70-110)
[2024-06-10 20:27] LABS: Glucose,Whole Blood 119 mg/dL (70-110)
[2024-06-10] MEDS: traZODone HCL 50 MG TAB PO SCH (20:38)
[2024-06-11 07:29] LABS: Glucose,Whole Blood 134 mg/dL (70-110)
[2024-06-11] MEDS: PANTOPRAZOLE 40 MG TABLET PO SCH (08:35)
[2024-06-11 08:50] LABS: Basophils # (A) 0.24 X 10*3/uL (0.00-0.10); Basophils % (A) 2.4 %; Eosinophils # (A) 0.21 X 10*3/uL (0.04-0.35); Eosinophils % (A) 2.1 %; HCT 30.8 % (39.6-50.0); HGB 9.6 g/dL (13.0-17.0); Lymphocytes # (A) 2.65 X 10*3/uL (0.90-5.00); Lymphocytes % (A) 26.3 %; MCH 38.2 pg (27.0-32.0); MCHC 31.2 g/dL (32.0-37.0); MCV 122.7 FL (80.0-97.0); Mean Platelet Volume 12.2 FL (9.5-12.2); Monocytes # (A) 0.71 X 10*3/uL (0.20-1.00); NRBC Per 100 WBC 0 X 10*3/uL (0.00-0.01); Neutrophils # (A) 6.21 X 10*3/uL (1.80-7.70); Neutrophils % (A) 61.6 %; Platelet Count 272 X 10*3/uL (140-440); RBC 2.51 X 10*6/uL (4.40-5.60); RDW 15.1 % (11.5-14.5); WBC 10.08 X 10*3/uL (4.50-10.00)
[2024-06-11 08:56] LABS: BUN/Creat Ratio 12.39 Ratio (12.00-20.00); Blood Urea Nitrogen 22.3 mg/dL (9.0-27.0); Calcium 8.5 mg/dL (8.7-10.3); Carbon Dioxide 20.7 mmol/L (21.6-31.8); Chloride 104 mmol/L (96-109); Glucose 129 mg/dL (70-110); Sodium 137 mmol/L (135-145)
--- NOTE | 2024-06-11 11:39 | P.PN ---
Subjective Progress Note Date: 06/11/24 Hospital Course: A 48-year-old male with past medical history of alcohol use disorder, alcoholic cirrhosis not a candidate for transplant, HTN, nicotine dependence, who presented to the ER for psychiatric evaluation due to self inflicted laceration to the left forearm initially on 05/22/2024, his wound was sutured in the ER with 16 sutures, CT abdomen showed hepatomegaly and fatty liver infiltration with no biliary duct dilation or ascites, infrarenal abdominal aortic aneurysm extending into the iliac branches and the fat-containing umbilical hernia. Patient went into alcohol withdrawal and was placed on scheduled Librium, as needed Ativan. His alcohol withdrawal was successfully treatment and Librium discontinued. However, patient was noted to have worsening cellulitis at the wrist at the site of sutures, general surgery consulted, patient was started on IV antibiotics, 1 suture removed, other sutures to be taking out in a week. It was later determined that patient lacked capacity for medical decision making. Subjective: Patient was seen in his room. He had no acute complaints. No other acute issues overnight. Vitals Signs Reviewed. 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 twice daily for 2 more days -Continue with Zoloft 10 mg p.o. daily -Psychiatry on board, no indications for inpatient psychiatric admission -contineu with trazodone 50 mg at bedtime DRAKE -Patient's creatinine has been stable throughout this admission around 1.8. I suspect that this is his new baseline. -Nephrology following the patient -Patient started on sodium bicarb 6 and 50 mg p.o. twice daily -I reviewed notes from nephrology who said continue with the diuretics -Trend BMP Alcohol cirrhosis Alcohol use disorder Alcohol withdrawal, resolved -Continue with Lasix 40 mg p.o. daily, lactulose 30 g p.o. 3 times daily, spironolactone 25 mg p.o. twice daily, thiamine 100 mg p.o. daily, folic acid 1 mg p.o. daily -PPI Newly diagnosed type II DM: Hemoglobin A1c is 8.5. Holding oral hypoglycemic in the hospital, on SSI. Plan to discharge the patient on glipizide nicotine dependence, continue nicotine patch, encouraged tobacco cessation Generalized weakness, PT OT on board recommending SNF DVT ppx: Heparin Discussed with the social security benefits interviewer who said multiple facilities have denied patien t. Anticipated discharge place: Nursing facility Anticipated discharge time: Afebrile authorization Objective - Vital Signs Vital signs: Vital Signs Temp 98.1 F 06/11/24 08:00 Pulse 76 06/11/24 08:00 Resp 16 06/11/24 08:00 BP 108/62 06/11/24 08:00 Pulse Ox 94 L 06/11/24 08:00 FiO2 Intake & Output 06/10/24 06/11/24 06/11/24 18:59 06:59 18:59 Intake Total 480 240 480 Output Total 200 Balance 480 240 280 Intake: Oral 480 240 480 Output: Urine 200 Other: Voiding Method Toilet Urinal - Labs CBC & Chem 7: 06/11/24 04:52 06/11/24 04:52 Labs: Abnormal Lab Results - Last 24 Hours (Table) 06/10/24 06/10/24 06/10/24 Range/Units 09:38 12:13 17:10 WBC 10.55 H (4.50-10.00) X 10*3/uL RBC 3.17 L (4.40-5.60) X 10*6/uL Hgb 11.6 L (13.0-17.0) g/dL Hct 38.6 L (39.6-50.0) % MCV 121.8 H (80.0-97.0) FL MCH 36.6 H (27.0-32.0) pg MCHC 30.1 L (32.0-37.0) g/dL RDW 15.2 H (11.5-14.5) % Immature Gran # 0.07 H (0.00-0.04) X 10*3/uL Basophils # 0.25 H (0.00-0.10) X 10*3/uL Carbon Dioxide (21.6-31.8) mmol/L Anion Gap (4.00-12.00) mmol/L Creatinine (0.6-1.5) mg/dL Est GFR (CKD-EPI) (>=60) Glucose (70-110) mg/dL POC Glucose (mg/dL) 148 H 177 H (70-110) mg/dL Calcium (8.7-10.3) mg/dL 06/10/24 06/11/24 06/11/24 Range/Units 20:26 04:52 04:52 WBC 10.08 H (4.50-10.00) X 10*3/uL RBC 2.51 L (4.40-5.60) X 10*6/uL Hgb 9.6 L (13.0-17.0) g/dL Hct 30.8 L (39.6-50.0) % MCV 122.7 H (80.0-97.0) FL MCH 38.2 H (27.0-32.0) pg MCHC 31.2 L (32.0-37.0) g/dL RDW 15.1 H (11.5-14.5) % Immature Gran # 0.06 H (0.00-0.04) X 10*3/uL Basophils # 0.24 H (0.00-0.10) X 10*3/uL Carbon Dioxide 20.7 L (21.6-31.8) mmol/L Anion Gap 12.30 H (4.00-12.00) mmol/L Creatinine 1.8 H (0.6-1.5) mg/dL Est GFR (CKD-EPI) 46 L (>=60) Glucose 129 H (70-110) mg/dL POC Glucose (mg/dL) 119 H (70-110) mg/dL Calcium 8.5 L (8.7-10.3) mg/dL 06/11/24 Range/Units 07:27 WBC (4.50-10.00) X 10*3/uL RBC (4.40-5.60) X 10*6/uL Hgb (13.0-17.0) g/dL Hct (39.6-50.0) % MCV (80.0-97.0) FL MCH (27.0-32.0) pg MCHC (32.0-37.0) g/dL RDW (11.5-14.5) % Immature Gran # (0.00-0.04) X 10*3/uL Basophils # (0.00-0.10) X 10*3/uL Carbon Dioxide (21.6-31.8) mmol/L Anion Gap (4.00-12.00) mmol/L Creatinine (0.6-1.5) mg/dL Est GFR (CKD-EPI) (>=60) Glucose (70-110) mg/dL POC Glucose (mg/dL) 134 H (70-110) mg/dL Calcium (8.7-10.3) mg/dL
[2024-06-11 12:27] LABS: Glucose,Whole Blood 159 mg/dL (70-110)
[2024-06-11 16:33] VITALS: BMI 36.6
[2024-06-11 17:09] LABS: Glucose,Whole Blood 148 mg/dL (70-110)
[2024-06-11 20:15] LABS: Glucose,Whole Blood 146 mg/dL (70-110)
--- NOTE | 2024-06-11 22:31 | P.PN ---
Subjective Patient is seen for follow-up for acute kidney injury. Renal function is stable. Maintained on oral Lasix. 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 - Labs CBC & Chem 7: 06/11/24 04:52 06/11/24 04:52 Labs: Abnormal Lab Results - Last 24 Hours (Table) 06/11/24 06/11/24 06/11/24 Range/Units 04:52 04:52 07:27 WBC 10.08 H (4.50-10.00) X 10*3/uL RBC 2.51 L (4.40-5.60) X 10*6/uL Hgb 9.6 L (13.0-17.0) g/dL Hct 30.8 L (39.6-50.0) % MCV 122.7 H (80.0-97.0) FL MCH 38.2 H (27.0-32.0) pg MCHC 31.2 L (32.0-37.0) g/dL RDW 15.1 H (11.5-14.5) % Immature Gran # 0.06 H (0.00-0.04) X 10*3/uL Basophils # 0.24 H (0.00-0.10) X 10*3/uL Carbon Dioxide 20.7 L (21.6-31.8) mmol/L Anion Gap 12.30 H (4.00-12.00) mmol/L Creatinine 1.8 H (0.6-1.5) mg/dL Est GFR (CKD-EPI) 46 L (>=60) Glucose 129 H (70-110) mg/dL POC Glucose (mg/dL) 134 H (70-110) mg/dL Calcium 8.5 L (8.7-10.3) mg/dL 06/11/24 06/11/24 06/11/24 Range/Units 12:25 17:08 20:13 WBC (4.50-10.00) X 10*3/uL RBC (4.40-5.60) X 10*6/uL Hgb (13.0-17.0) g/dL Hct (39.6-50.0) % MCV (80.0-97.0) FL MCH (27.0-32.0) pg MCHC (32.0-37.0) g/dL RDW (11.5-14.5) % Immature Gran # (0.00-0.04) X 10*3/uL Basophils # (0.00-0.10) X 10*3/uL Carbon Dioxide (21.6-31.8) mmol/L Anion Gap (4.00-12.00) mmol/L Creatinine (0.6-1.5) mg/dL Est GFR (CKD-EPI) (>=60) Glucose (70-110) mg/dL POC Glucose (mg/dL) 159 H 148 H 146 H (70-110) mg/dL Calcium (8.7-10.3) mg/dL Assessment and Plan Assessment: 1. Acute kidney injury secondary to ATN secondary to hepatorenal syndrome. CAT scan from May 26, 2024 showed no evidence of hydronephrosis. Ultrasound from this admission showed no hydronephrosis. UA fairly benign. Baseline creatinine 0.5-0.7. Creatinine stable at 1.6 -1.8 2. Alcohol induced liver cirrhosis. No ascites noted on abdominal ultrasound. 3. Metabolic acidosis secondary to acute kidney injury. On oral bicarb. Stable. 4. Diabetes mellitus. 5. Anemia. Iron replete. 6. Volume overload. On Lasix and Aldactone. Improved. 7. Hypomagnesemia from diuresis. On oral magnesium oxide. Stable. Plan: Decrease Lasix and repeat labs in a.m.
[2024-06-12 07:17] LABS: Glucose,Whole Blood 129 mg/dL (70-110)
[2024-06-12 09:18] LABS: Basophils # (A) 0.22 X 10*3/uL (0.00-0.10); Basophils % (A) 1.9 %; Eosinophils % (A) 1.7 %; HCT 30.3 % (39.6-50.0); HGB 9.7 g/dL (13.0-17.0); Lymphocytes # (A) 2.37 X 10*3/uL (0.90-5.00); Lymphocytes % (A) 20.7 %; MCH 38.3 pg (27.0-32.0); MCV 119.8 FL (80.0-97.0); Mean Platelet Volume 12.7 FL (9.5-12.2); Monocytes # (A) 0.73 X 10*3/uL (0.20-1.00); Monocytes % (A) 6.4 %; NRBC Per 100 WBC 0 X 10*3/uL (0.00-0.01); Neutrophils # (A) 7.86 X 10*3/uL (1.80-7.70); Neutrophils % (A) 68.6 %; Platelet Count 282 X 10*3/uL (140-440); RBC 2.53 X 10*6/uL (4.40-5.60); RDW 14.7 % (11.5-14.5); WBC 11.46 X 10*3/uL (4.50-10.00)
[2024-06-12] MEDS: FUROSEMIDE 20 MG TAB PO SCH (09:49)
[2024-06-12 10:25] LABS: BUN/Creat Ratio 15.12 Ratio (12.00-20.00); Blood Urea Nitrogen 24.2 mg/dL (9.0-27.0); Calcium 8.7 mg/dL (8.7-10.3); Carbon Dioxide 23.6 mmol/L (21.6-31.8); Chloride 103 mmol/L (96-109); Glucose 142 mg/dL (70-110); Potassium 4.3 mmol/L (3.5-5.5); Sodium 136 mmol/L (135-145)
--- NOTE | 2024-06-12 11:55 | P.PN ---
Subjective Progress Note Date: 06/12/24 Hospital Course: A 48-year-old male with past medical history of alcohol use disorder, alcoholic cirrhosis not a candidate for transplant, HTN, nicotine dependence, who presented to the ER for psychiatric evaluation due to self inflicted laceration to the left forearm initially on 05/22/2024, his wound was sutured in the ER with 16 sutures, CT abdomen showed hepatomegaly and fatty liver infiltration with no biliary duct dilation or ascites, infrarenal abdominal aortic aneurysm extending into the iliac branches and the fat-containing umbilical hernia. Patient went into alcohol withdrawal and was placed on scheduled Librium, as needed Ativan. His alcohol withdrawal was successfully treatment and Librium discontinued. However, patient was noted to have worsening cellulitis at the wrist at the site of sutures, general surgery consulted, patient was started on IV antibiotics, 1 suture removed, other sutures to be taking out in a week. It was later determined that patient lacked capacity for medical decision making. Subjective: Patient seen this morning. Has no acute complaints. Patient had a shower this morning. Vitals Signs Reviewed. 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 twice daily for 2 more days -Continue with Zoloft 10 mg p.o. daily -Psychiatry on board, no indications for inpatient psychiatric admission -contineu with trazodone 50 mg at bedtime DRAKE -Patient's creatinine has been stable throughout this admission around 1.8. I suspect that this is his new baseline. -Patient's creatinine this morning is 1.6 -Nephrology following the patient -Patient started on sodium bicarb 6 and 50 mg p.o. twice daily -I reviewed nephrology note who recommended decreased patient's diuretic. Lasix was decreased from 40 mg to 20 mg daily -Trend BMP Alcohol cirrhosis Alcohol use disorder Alcohol withdrawal, resolved -Continue with Lasix 20 mg p.o. daily, lactulose 30 g p.o. 3 times daily, spironolactone 25 mg p.o. twice daily, thiamine 100 mg p.o. daily, folic acid 1 mg p.o. daily -PPI Newly diagnosed type II DM: Hemoglobin A1c is 8.5. Holding oral hypoglycemic in the hospital, on SSI. Plan to discharge the patient on glipizide nicotine dependence, continue nicotine patch, encouraged tobacco cessation Generalized weakness, PT OT on board recommending SNF DVT ppx: Heparin Discussed with the social insurance specialist who said that we are waiting on prior authorization. Anticipated discharge place: Nursing facility Anticipated discharge time: Afebrile authorization Objective - Vital Signs Vital signs: Vital Signs Temp 98.1 F 06/12/24 07:34 Pulse 77 06/12/24 07:34 Resp 16 06/12/24 07:34 BP 91/57 06/12/24 07:34 Pulse Ox 94 L 06/12/24 07:34 FiO2 Intake & Output 06/11/24 06/12/24 06/12/24 18:59 06:59 18:59 Intake Total 480 236 Output Total 200 200 Balance 280 -200 236 Weight 116 kg Intake: Oral 480 236 Output: Urine 200 200 Other: Voiding Method Toilet Urinal - Labs CBC & Chem 7: 06/12/24 04:28 06/12/24 04:28 Labs: Abnormal Lab Results - Last 24 Hours (Table) 06/11/24 06/11/24 06/11/24 Range/Units 12:25 17:08 20:13 WBC (4.50-10.00) X 10*3/uL RBC (4.40-5.60) X 10*6/uL Hgb (13.0-17.0) g/dL Hct (39.6-50.0) % MCV (80.0-97.0) FL MCH (27.0-32.0) pg RDW (11.5-14.5) % MPV (9.5-12.2) FL Immature Gran # (0.00-0.04) X 10*3/uL Neutrophils # (1.80-7.70) X 10*3/uL Basophils # (0.00-0.10) X 10*3/uL Creatinine (0.6-1.5) mg/dL Est GFR (CKD-EPI) (>=60) Glucose (70-110) mg/dL POC Glucose (mg/dL) 159 H 148 H 146 H (70-110) mg/dL 06/12/24 06/12/24 06/12/24 Range/Units 04:28 04:28 07:16 WBC 11.46 H (4.50-10.00) X 10*3/uL RBC 2.53 L (4.40-5.60) X 10*6/uL Hgb 9.7 L (13.0-17.0) g/dL Hct 30.3 L (39.6-50.0) % MCV 119.8 H (80.0-97.0) FL MCH 38.3 H (27.0-32.0) pg RDW 14.7 H (11.5-14.5) % MPV 12.7 H (9.5-12.2) FL Immature Gran # 0.08 H (0.00-0.04) X 10*3/uL Neutrophils # 7.86 H (1.80-7.70) X 10*3/uL Basophils # 0.22 H (0.00-0.10) X 10*3/uL Creatinine 1.6 H (0.6-1.5) mg/dL Est GFR (CKD-EPI) 53 L (>=60) Glucose 142 H (70-110) mg/dL POC Glucose (mg/dL) 129 H (70-110) mg/dL
[2024-06-12 12:06] LABS: Glucose,Whole Blood 198 mg/dL (70-110)
[2024-06-12 17:04] LABS: Glucose,Whole Blood 221 mg/dL (70-110)
[2024-06-12 19:53] LABS: Glucose,Whole Blood 96 mg/dL (70-110)
[2024-06-13 07:34] LABS: Glucose,Whole Blood 141 mg/dL (70-110)
[2024-06-13 12:25] LABS: Glucose,Whole Blood 143 mg/dL (70-110)
--- NOTE | 2024-06-13 13:19 | P.DS ---
Providers Date of admission: 06/04/24 14:31 Attending physician: Christopher Alves Consults: 06/04/24 15:13 Consult Physician Routine Consulting Provider: Rosie Palafox Consult Reason/Comments: has a sitter, SI Do you want consulting provider notified?: Yes 06/04/24 18:07 Consult Physician Routine Consulting Provider: Pavel Lund Consult Reason/Comments: DRAKE Do you want consulting provider notified?: Yes, Notify in am 06/06/24 09:10 Consult Physician Routine Consulting Provider: Marc Narvaez Consult Reason/Comments: in pt rehab program Do you want consulting provider notified?: Yes 06/07/24 12:10 Consult Physician Routine Consulting Provider: Rosie Palafox Consult Reason/Comments: competency eval Do you want consulting provider notified?: Yes Primary care physician: Darell Stiles MD Hospital Course: Discharge Diagnosis: Left wrist infected self-inflicted wound with surrounding cellulitis Suicidal attempt with self-inflicted left arm laceration status post repair Alcoholic cirrhosis Alcohol use disorder Alcohol withdrawal: Resolved Type 2 diabetes mellitus Generalized weakness Hospital Course: A 48-year-old male with past medical history of alcohol use disorder, alcoholic cirrhosis not a candidate for transplant, HTN, nicotine dependence, who presented to the ER for psychiatric evaluation due to self inflicted laceration to the left forearm initially on 05/22/2024, his wound was sutured in the ER with 16 sutures, CT abdomen showed hepatomegaly and fatty liver infiltration with no biliary duct dilation or ascites, infrarenal abdominal aortic aneurysm extending into the iliac branches and the fat-containing umbilical hernia. Patient was admitted to the medicine service. Patient was evaluated by psychiatry. Patient was started on Zoloft. Per psychiatry no need for inpatient psychiatric admission. Patient did have cellulitis around the lacerations on his wrist. This was treated with antibiotics. Patient completed the antibiotic course while in the hospital. Patient also did have a complicated hospital course due to alcohol withdrawal. Patient was on CIWA protocol. At the time of discharge his withdrawal had resolved. Patient also did have a complicated course due to acute kidney injury. At the time of discharge his creatinine was stable around 1.6. This is likely patient's new baseline. Nephrology also started the patient on sodium bicarb 650 mg p.o. twice daily. Patient was also started on medications for his liver cirrhosis. He was started on Lasix 20 mg p.o. daily, lactulose 30 g p.o. 3 times daily, spironolactone 25 mg p.o. twice daily. Patient counseled on alcoholic cessation. Patient was counseled on medication compliance. Patient was also instructed to follow-up with gastroenterology. Patient worked with physical therapy recommending [facility]. Patient deemed stable for discharge to [facility]. Patient seen and examined at bedside.[] Vital signs reviewed and stable. General examination - Alert and Oriented 3 in NAD Heart - + S1S2 no murmurs Lungs - Clear to auscultation Abdomen soft NT ND +ve BS Extremities -left wrist with lacerations that are stitched with no surrounding erythema [employer] CHIEF - Moving all 4 extremities spontaneously Psych - Calm and cooperative A total of [33] minutes of time were spent preparing this complex discharge summary . Patient discharged on [06/13/2024] Patient Condition at Discharge: Poor Plan - Discharge Summary Discharge Rx Participant: No New Discharge Prescriptions: New Spironolactone [Aldactone] 25 mg PO BID tab Furosemide [Lasix] 20 mg PO DAILY tab Sertraline [Zoloft] 100 mg PO DAILY tab traZODone HCL [Desyrel] 50 mg PO HS tab Magnesium Oxide [Mag-Ox] 400 mg PO BID tab Sodium Bicarbonate Tab 650 mg PO BID tab Continue Mupirocin 2% Oint [Bactroban 2% Oint] 1 applic TOPICAL TID each Lactulose [Cephulac] 30 gm PO TID ml Folic Acid 1 mg PO DAILY tab Nicotine 21Mg/24Hr Patch [Habitrol] 1 patch TRANSDERM DAILY patch Thiamine [Vitamin B-1] 100 mg PO DAILY tab glipiZIDE 5 mg PO BID #20 tablet Multivitamins, Thera [Multivitamin (formulary)] 1 tab PO DAILY Discontinued Acetaminophen Tab [Tylenol] 650 mg PO Q6HR PRN tab PRN Reason: Fever And/ Or Pain Doxycycline [Vibramycin] 100 mg PO BID 10 Days #20 capsule metFORMIN HCL 500 mg PO BID #20 tablet Discharge Medication List Folic Acid 1 mg PO DAILY tab 06/03/24 [Rx] Lactulose [Cephulac] 30 gm PO TID ml 06/03/24 [Rx] Multivitamins, Thera [Multivitamin (formulary)] 1 tab PO DAILY 06/03/24 [Histo ry] Mupirocin 2% Oint [Bactroban 2% Oint] 1 applic TOPICAL TID each 06/03/24 [Rx] Nicotine 21Mg/24Hr Patch [Habitrol] 1 patch TRANSDERM DAILY patch 06/03/24 [Rx] Thiamine [Vitamin B-1] 100 mg PO DAILY tab 06/03/24 [Rx] glipiZIDE 5 mg PO BID #20 tablet 06/03/24 [Rx] Furosemide [Lasix] 20 mg PO DAILY tab 06/13/24 [Rx] Magnesium Oxide [Mag-Ox] 400 mg PO BID tab 06/13/24 [Rx] Sertraline [Zoloft] 100 mg PO DAILY tab 06/13/24 [Rx] Sodium Bicarbonate Tab 650 mg PO BID tab 06/13/24 [Rx] Spironolactone [Aldactone] 25 mg PO BID tab 06/13/24 [Rx] traZODone HCL [Desyrel] 50 mg PO HS tab 06/13/24 [Rx] Follow up Appointment(s)/Referral(s): Margot Perkins MD [STAFF PHYSICIAN] - 1 Week Connie Bender MD [STAFF PHYSICIAN] - 1 Week Discharge/Stand Alone Forms: AA Meetings [place], [facility], Outpatient Counseling, Inp Substance Abuse Facilities, Outpatient Therapy List Discharge Disposition: TRANSFER TO SNF/ECF
[2024-06-13 13:53] VITALS: BP 96/60; PULSE 78; RESP 17; TEMP 98.4
== END 2024-06-13 15:15 | DRG 469 ==
LOC: 5NMEDONC 14:31
PROVIDERS: ADMIT Student in an Organized Health Care Education/Training Program; ATTEND Student in an Organized Health Care Education/Training Program
DX: N17.0 Acute kidney failure with tubular necrosis (principal); E87.70 Fluid overload, unspecified; E83.42 Hypomagnesemia; E87.20 Acidosis, unspecified; K70.31 Alcoholic cirrhosis of liver with ascites; D64.9 Anemia, unspecified; F32.9 Major depressive disorder, single episode, unspecified; F10.239 Alcohol dependence with withdrawal, unspecified; F12.10 Cannabis abuse, uncomplicated; F17.210 Nicotine dependence, cigarettes, uncomplicated; I10 Essential (primary) hypertension; K50.90 Crohn's disease, unspecified, without complications; E11.65 Type 2 diabetes mellitus with hyperglycemia; K76.7 Hepatorenal syndrome; Z91.52 Personal history of nonsuicidal self-harm; X78.9XXA Intentional self-harm by unspecified sharp object, initial encounter; S51.812A Laceration without foreign body of left forearm, initial encounter; T81.30XA Disruption of wound, unspecified, initial encounter; T14.91XA Suicide attempt, initial encounter; Z91.81 History of falling; G92.8 Other toxic encephalopathy; I71.43 Infrarenal abdominal aortic aneurysm, without rupture; K83.8 Other specified diseases of biliary tract; K42.9 Umbilical hernia without obstruction or gangrene; K76.0 Fatty (change of) liver, not elsewhere classified; L03.114 Cellulitis of left upper limb; R32 Unspecified urinary incontinence; S61.512A Laceration without foreign body of left wrist, initial encounter; Z79.84 Long term (current) use of oral hypoglycemic drugs; Z79.899 Other long term (current) drug therapy; Z82.49 Family history of ischemic heart disease and other diseases of the circulatory system; Z71.41 Alcohol abuse counseling and surveillance of alcoholic
CPT/HCPCS: 76705; 76770; 80048; 80053; 81001; 82140; 82607; 82728; 83540; 83550; 83735; 84300; 85025; 85610